=== PATIENT | female | born 1975 | race Hispanic/Latino ===

== ENCOUNTER 2023-04-18 19:49 | Inpatient (IN) | payer MEDICAID, OTHER ==
[~2023-04-18] VITALS: Ht 149.9 cm; Wt 70.3 kg
[2023-04-18] MEDS ORDERED: LIDOCAINE HCL 2% VISCOUS 15 ML UDCUP PO ONE (23:00)
[2023-04-18] MEDS ORDERED: ONDANSETRON 4MG TABLET PO ONE (23:00)
[2023-04-18 23:04] LABS: BASOPHILS # (AUTO) 0.02 K/uL (0.00-0.20); BASOPHILS % (AUTO) 0.3 % (0.0-5.0); EOSINOPHILS # (AUTO) 0.15 K/uL (0.00-0.70); EOSINOPHILS % (AUTO) 2.4 % (0.0-8.0); HEMATOCRIT 26.9 % (36-48); IMMATURE GRANULOCYTE ABSOLUTE 0.04 K/uL (0-1); LYMPHOCYTES % (AUTO) 15.5 % (21.0-51.0); MEAN CORPUSCULAR HEMOGLOBIN 26.3 pg (27.0-33.0); MEAN CORPUSCULAR HGB CONC 31.2 g/dL (32.0-36.0); MEAN CORPUSCULAR VOLUME 84.3 fL (79-99); MONOCYTES # (AUTO) 0.4 K/uL (0.1-1.0); MONOCYTES % (AUTO) 6.3 % (3.0-13.0); NEUTROPHILS # (AUTO) 4.8 K/uL (1.8-7.7); NEUTROPHILS % (AUTO) 74.9 % (40.0-77.0); PLATELET COUNT (AUTO) 333 K/uL (130-400); RED BLOOD CELL COUNT(AUTO) 3.19 MIL/uL (4.00-5.50); WHITE BLOOD COUNT (AUTO) 6.4 K/uL (4.8-10.8)
[2023-04-18 23:19] LABS: CREATININE 1.7 mg/dL (0.5-1.5); POTASSIUM 4.4 mmol/L (3.5-5.1)
[2023-04-18 23:25] LABS: ADD UA MICROSCOPIC YES; APPEARANCE,URINE CLOUDY (CLEAR); BILIRUBIN,URINE NEGATIVE (NEGATIVE); COLOR,URINE LIGHT-YELLOW (YELLOW); GLUCOSE, URINE (UA) 300 mg/dL (NEGATIVE); KETONES,URINE NEGATIVE (NEGATIVE); LEUKOCYTE ESTERASE ,URINE 250 Leu/uL (NEGATIVE); NITRATE,URINE NEGATIVE (NEGATIVE); OCCULT BLOOD,URINE SMALL (NEGATIVE); PH,URINE 6.5 (5.0-8.0); PROTEIN,URINE 600 mg/dL (NEGATIVE); UROBILINOGEN,URINE 0.2 mg/dL (0.2-1.0)
[2023-04-18 23:26] LABS: ALBUMIN 2.2 g/dL (3.5-5.0); BILIRUBIN,TOTAL 0.1 mg/dL (0.2-1.0); TOTAL PROTEIN, SERUM 7.3 g/dL (6.0-8.3)
[2023-04-18 23:28] LABS: HCG,QUALITATIVE URINE NEGATIVE (NEGATIVE)
[2023-04-18] MEDS ORDERED: MAG/ALUM/SIMETH 30 ML UDCUP PO ONE (23:30)
[2023-04-18 23:31] LABS: BACTERIA,URINE RARE /HPF (None Seen); MUCUS,URINE RARE LPF (None Seen); SQUAMOUS EPITHELIAL CELL,UR FEW /HPF (0-2); WBC CLUMP RARE /HPF (0-1); WBC,URINE TNTC /HPF (0-1)
[2023-04-19] MEDS ORDERED: CEFTRIAXONE 1G VIAL ONE (00:52)
[2023-04-19] MEDS ORDERED: 0.9%NACL 1000ML 1,000 ML IV ONE ×2 (00:52→01:00)
[2023-04-19] MEDS ORDERED: CEFTRIAXONE 1G VIAL IVPB ONE (01:00)
[2023-04-19] MEDS ORDERED: MORPHINE 2 MG SYG IVP ONE ×2 (01:30→06:00)
[2023-04-19] MEDS ORDERED: INSU100V12 SQ ×2 (02:25)
[2023-04-19] MEDS ORDERED: LISI5TAB21 PO (02:25)
[2023-04-19] MEDS ORDERED: ONDANSETRON 4MG INJ IV PRN (03:00)
[2023-04-19] MEDS ORDERED: KETOROLAC 15MG/ML VIAL (15MG/ML) IV PRN (03:00)
[2023-04-19] MEDS: CEFTRIAXONE 1G VIAL IVPB SCH (03:00)
[2023-04-19] MEDS: 0.9%NACL 1000ML 1,000 ML IV SCH ×4 (03:18→23:00)
[2023-04-19] MEDS ORDERED: DEXTROSE 50%-WATER 50 ML DISP.SYRIN IV PRN (03:30)
[2023-04-19] MEDS ORDERED: GLUCAGON 1MG KIT 1 MG ML IM PRN (03:30)
[2023-04-19 05:29] LABS: HEMATOCRIT 25.2 % (36-48); MEAN CORPUSCULAR HEMOGLOBIN 26.3 pg (27.0-33.0); MEAN CORPUSCULAR VOLUME 84.8 fL (79-99); PLATELET COUNT (AUTO) 304 K/uL (130-400); RED BLOOD CELL COUNT(AUTO) 2.97 MIL/uL (4.00-5.50); RED CELL DISTRIBUTION WIDTH 13.2 % (11.0-15.5); WHITE BLOOD COUNT (AUTO) 5.5 K/uL (4.8-10.8)
[2023-04-19 06:42] LABS: ALANINE AMINOTRANSFERASE 11 U/L (12-78); AMYLASE 505 U/L (25-115); ASPARTATE AMINOTRANSFERASE 17 U/L (10-37); CARBON DIOXIDE 25 mmol/L (21-32); CHLORIDE 109 mmol/L (101-111); CHOLESTEROL 197 mg/dL (<200); CREATININE 1.4 mg/dL (0.5-1.5); GLOMERULAR FILTR. RATE CALC 46 mL/min (>90); GLUCOSE,RANDOM 74 mg/dL (70-105); HDL CHOLESTEROL 64 mg/dL (35-85); LDL DIRECT 93 mg/dL (0-99); POTASSIUM 4.1 mmol/L (3.5-5.1); SODIUM SERUM 142 mmol/L (136-145); TOTAL PROTEIN, SERUM 6.8 g/dL (6.0-8.3); TRIGLYCERIDES 178 mg/dL (30-200); UREA NITROGEN, BLOOD 28 mg/dL (7-18)
[2023-04-19 06:44] LABS: % IRON SATURATION 14.5 % (22-44)
[2023-04-19] MEDS: INSULIN HUMULIN R 100 UNIT/ML 3ML SQ SCH ×4 (07:14→20:27)
[2023-04-19 07:19] LABS: BILIRUBIN,TOTAL < 0.1 mg/dL (0.2-1.0)
[2023-04-19 09:09] LABS: BASOPHILS # (AUTO) 0.03 K/uL (0.00-0.20); BASOPHILS % (AUTO) 0.4 % (0.0-5.0); EOSINOPHILS # (AUTO) 0.12 K/uL (0.00-0.70); EOSINOPHILS % (AUTO) 1.7 % (0.0-8.0); HEMATOCRIT 24.6 % (36-48); IMMATURE GRANULOCYTE ABSOLUTE 0.03 K/uL (0-1); LYMPHOCYTES % (AUTO) 13.8 % (21.0-51.0); MEAN CORPUSCULAR HEMOGLOBIN 26.5 pg (27.0-33.0); MEAN CORPUSCULAR HGB CONC 31.3 g/dL (32.0-36.0); MEAN CORPUSCULAR VOLUME 84.5 fL (79-99); MONOCYTES # (AUTO) 0.6 K/uL (0.1-1.0); MONOCYTES % (AUTO) 8.3 % (3.0-13.0); NEUTROPHILS # (AUTO) 5.5 K/uL (1.8-7.7); NEUTROPHILS % (AUTO) 75.4 % (40.0-77.0); PLATELET COUNT (AUTO) 302 K/uL (130-400); RED BLOOD CELL COUNT(AUTO) 2.91 MIL/uL (4.00-5.50); RED CELL DISTRIBUTION WIDTH 13.1 % (11.0-15.5); WHITE BLOOD COUNT (AUTO) 7.3 K/uL (4.8-10.8)
[2023-04-19 09:26] LABS: ALBUMIN 1.9 g/dL (3.5-5.0); BILIRUBIN,TOTAL 0.1 mg/dL (0.2-1.0); CREATININE 1.5 mg/dL (0.5-1.5); POTASSIUM 4.3 mmol/L (3.5-5.1); TOTAL PROTEIN, SERUM 6.3 g/dL (6.0-8.3)
[2023-04-19 12:00] VITALS: BP 158/84; PULSE 96; RESP 18
[2023-04-19 16:00] VITALS: BP 155/71; PULSE 95; RESP 16
[2023-04-19 20:00] VITALS: BP 134/77; PULSE 102; RESP 20; O2SAT 99
[2023-04-20] VITALS (8 sets, daily range): BP systolic 140–179; BP diastolic 71–96; PULSE 87–96; RESP 16–20; O2SAT 95–100
[2023-04-20] MEDS: CEFTRIAXONE 1G VIAL IVPB SCH (02:06)
[2023-04-20 03:42] LABS: BASOPHILS # (AUTO) 0.02 K/uL (0.00-0.20); BASOPHILS % (AUTO) 0.5 % (0.0-5.0); EOSINOPHILS # (AUTO) 0.13 K/uL (0.00-0.70); EOSINOPHILS % (AUTO) 3.4 % (0.0-8.0); IMMATURE GRANULOCYTE ABSOLUTE 0.01 K/uL (0-1); LYMPHOCYTES % (AUTO) 25.1 % (21.0-51.0); MEAN CORPUSCULAR HEMOGLOBIN 26.6 pg (27.0-33.0); MEAN CORPUSCULAR HGB CONC 30.8 g/dL (32.0-36.0); MEAN CORPUSCULAR VOLUME 86.2 fL (79-99); MONOCYTES # (AUTO) 0.3 K/uL (0.1-1.0); MONOCYTES % (AUTO) 8.7 % (3.0-13.0); NEUTROPHILS # (AUTO) 2.3 K/uL (1.8-7.7); PLATELET COUNT (AUTO) 305 K/uL (130-400); RED CELL DISTRIBUTION WIDTH 13.2 % (11.0-15.5); WHITE BLOOD COUNT (AUTO) 3.8 K/uL (4.8-10.8)
[2023-04-20 04:00] LABS: ALBUMIN 1.7 g/dL (3.5-5.0); BILIRUBIN,TOTAL 0.1 mg/dL (0.2-1.0); CREATININE 1.4 mg/dL (0.5-1.5); POTASSIUM 4.2 mmol/L (3.5-5.1)
[2023-04-20] MEDS: INSULIN HUMULIN R 100 UNIT/ML 3ML SQ SCH ×4 (05:37→21:00)
[2023-04-20] MEDS: 0.9%NACL 1000ML 1,000 ML IV SCH ×3 (05:45→18:18)
[2023-04-20 06:56] LABS: AMYLASE 309 U/L (25-115)
[2023-04-20] MEDS ORDERED: LABETALOL 20MG VIAL IV PRN (07:00)
[2023-04-20] MEDS ORDERED: CEFTRIAXONE 1G VIAL IVPB ONE (09:00)
[2023-04-20] MEDS: LISINOPRIL 10 MG TABLET PO SCH (09:00)
[2023-04-20] MEDS: FERROUS SULFATE 325 MG TABLET.DR PO SCH (09:00)
[2023-04-21] VITALS (8 sets, daily range): BP systolic 156–187; BP diastolic 72–89; PULSE 60–95; RESP 18–19; O2SAT 99
[2023-04-21 04:06] LABS: BASOPHILS # (AUTO) 0.04 K/uL (0.00-0.20); BASOPHILS % (AUTO) 1.4 % (0.0-5.0); EOSINOPHILS # (AUTO) 0.13 K/uL (0.00-0.70); EOSINOPHILS % (AUTO) 4.4 % (0.0-8.0); HEMATOCRIT 24.6 % (36-48); IMMATURE GRANULOCYTE ABSOLUTE 0.01 K/uL (0-1); LYMPHOCYTES # (AUTO) 1.1 K/uL (1.0-4.8); LYMPHOCYTES % (AUTO) 36.1 % (21.0-51.0); MEAN CORPUSCULAR HEMOGLOBIN 26.4 pg (27.0-33.0); MEAN CORPUSCULAR HGB CONC 30.5 g/dL (32.0-36.0); MEAN CORPUSCULAR VOLUME 86.6 fL (79-99); MONOCYTES # (AUTO) 0.4 K/uL (0.1-1.0); MONOCYTES % (AUTO) 13.2 % (3.0-13.0); NEUTROPHILS # (AUTO) 1.3 K/uL (1.8-7.7); NEUTROPHILS % (AUTO) 44.6 % (40.0-77.0); PLATELET COUNT (AUTO) 284 K/uL (130-400); RED BLOOD CELL COUNT(AUTO) 2.84 MIL/uL (4.00-5.50)
[2023-04-21 04:25] LABS: BAND NEUTROPHILS % (MANUAL) 1 % (0-2); BASOPHILS % (MANUAL) 2 % (0-2); EOSINOPHILS % (MANUAL) 4 % (1-6); LYMPHOCYTES % (MANUAL) 26 % (22-44); MAN.DIFF COMMENT-IMPRESSION MANUAL DIFFERENTIAL; MONOCYTES % (MANUAL) 11 % (2-9); PLATELET MORPHOLOGY COMMENT ADEQUATE; SEGMENTED NEUTROPHILS % 56 % (40-70); TOTAL CELLS COUNTED 100
[2023-04-21 04:29] LABS: ALBUMIN 1.7 g/dL (3.5-5.0); BILIRUBIN,TOTAL 0.2 mg/dL (0.2-1.0); CREATININE 1.4 mg/dL (0.5-1.5); TOTAL PROTEIN, SERUM 5.8 g/dL (6.0-8.3)
[2023-04-21] MEDS: INSULIN HUMULIN R 100 UNIT/ML 3ML SQ SCH (07:30)
[2023-04-21] MEDS: LISINOPRIL 10 MG TABLET PO SCH (09:31)
[2023-04-21] MEDS: FERROUS SULFATE 325 MG TABLET.DR PO SCH (09:32)
[2023-04-22 04:27] VITALS: BP 150/69; PULSE 90; RESP 18
[2023-04-22 05:07] LABS: CREATININE 1.3 mg/dL (0.5-1.5); POTASSIUM 4.2 mmol/L (3.5-5.1)
[2023-04-22 08:00] VITALS: BP 170/78; PULSE 84; RESP 20; O2SAT 99
[2023-04-22] MEDS: FERROUS SULFATE 325 MG TABLET.DR PO SCH (09:21)
[2023-04-22] MEDS: LISINOPRIL 10 MG TABLET PO SCH (09:21)
[2023-04-22 12:00] VITALS: BP 144/82; PULSE 95; RESP 18
== END 2023-04-22 16:00 | disposition home or self-care (01) | DRG 439 ==
LOC: EDH 19:49 → EDHIP 19:50 → 4AH 04-19 11:40
PROVIDERS: ADMIT Hospitalist; ATTEND Hospitalist
DX: K85.90 Acute pancreatitis without necrosis or infection, unspecified (principal); N39.0 Urinary tract infection, site not specified; I12.9 Hypertensive chronic kidney disease with stage 1 through stage 4 chronic kidney disease, or unspecified chronic kidney disease; E11.22 Type 2 diabetes mellitus with diabetic chronic kidney disease; N18.9 Chronic kidney disease, unspecified; E11.65 Type 2 diabetes mellitus with hyperglycemia; D64.9 Anemia, unspecified; E78.5 Hyperlipidemia, unspecified; B96.20 Unspecified Escherichia coli [E. coli] as the cause of diseases classified elsewhere
CPT/HCPCS: 36415; 71045; 74176; 76705; 80048; 80053; 80061; 81001; 81025; 82150; 82948; 83036; 83540; 83550; 83690; 84484; 85025; 85027; 87077; 87088; 87186; 93005; G0378; J0696; J1885; J2270; J2405; J7030; Q0162; A4600

== ENCOUNTER 2025-01-14 23:47 | Inpatient (IN) | payer SELFPAY ==
[~2025-01-14] VITALS: Ht 149.9 cm; Wt 74.4 kg
[~2025-01-14 23:47] MED LIST: INSU100V12 SQ; LISI5TAB21 PO
[2025-01-15] VITALS (7 sets, daily range): BP systolic 131–204; BP diastolic 60–107; PULSE 100–116; RESP 20–21; TEMP 97.6–99; O2SAT 95
[2025-01-15 01:02] LABS: CARBON DIOXIDE 29 mmol/L (21-32); CHLORIDE 105 mmol/L (101-111); CREATININE 3.2 mg/dL (0.5-1.0); GLOMERULAR FILTR. RATE CALC 17 mL/min (>90); GLUCOSE,RANDOM 211 mg/dL (70-105); POTASSIUM 4.8 mmol/L (3.5-5.1); SODIUM SERUM 143 mmol/L (136-145); UREA NITROGEN, BLOOD 34 mg/dL (7-18)
[2025-01-15 01:09] LABS: ALANINE AMINOTRANSFERASE 16 U/L (12-78); ALBUMIN 1.3 g/dL (3.5-5.0); ASPARTATE AMINOTRANSFERASE 22 U/L (10-37); BASOPHILS # (AUTO) 0.03 K/uL (0.00-0.20); BASOPHILS % (AUTO) 0.4 % (0.0-5.0); BILIRUBIN,DIRECT < 0.1 mg/dL (0.0-0.3); BILIRUBIN,TOTAL 0.1 mg/dL (0.2-1.0); CREATINE KINASE, TOTAL 379 U/L (21-232); EOSINOPHILS # (AUTO) 0.25 K/uL (0.00-0.70); EOSINOPHILS % (AUTO) 3.2 % (0.0-8.0); HEMATOCRIT 21.5 % (36-48); IMMATURE GRANULOCYTE ABSOLUTE 0.07 K/uL (0-1); LYMPHOCYTES # (AUTO) 1.2 K/uL (1.0-4.8); LYMPHOCYTES % (AUTO) 15.4 % (21.0-51.0); MEAN CORPUSCULAR HGB CONC 31.6 g/dL (32.0-36.0); MEAN CORPUSCULAR VOLUME 85.3 fL (79-99); MONOCYTES # (AUTO) 0.6 K/uL (0.1-1.0); MONOCYTES % (AUTO) 7.7 % (3.0-13.0); NEUTROPHILS # (AUTO) 5.7 K/uL (1.8-7.7); NEUTROPHILS % (AUTO) 72.4 % (40.0-77.0); PLATELET COUNT (AUTO) 432 K/uL (130-400); RED BLOOD CELL COUNT(AUTO) 2.52 MIL/uL (4.00-5.50); RED CELL DISTRIBUTION WIDTH 14.2 % (11.0-15.5); TOTAL PROTEIN, SERUM 5.7 g/dL (6.0-8.3); WHITE BLOOD COUNT (AUTO) 7.8 K/uL (4.8-10.8)
--- NOTE | 2025-01-15 01:19 | NUR ---
PT CARE ASSUMED AT THIS TIME
[2025-01-15 01:41] LABS: B-TYPE NATRIURETIC PEPTIDE 2070 pg/mL (0-100)
[2025-01-15 01:52] LABS: RAPID GROUP A STREP negative (NEGATIVE)
--- NOTE | 2025-01-15 01:53 | ERN ---
ED Note History of Present Illness Stated Complaint: C/O WEAKNESS WITH SWELLING TO LOWER EXTREMITIES Chief Complaint: Lower Extremity Pain/Injury Time Seen by MD: 23:51 Time Seen by Midlevel: 23:51 Dictation: The patient is a 49-year-old female with a history of hyperlipidemia, chronic kidney disease, diabetes on insulin and metformin who presents to the emergency department with complaints of four days of lower extremity swelling, fatigue, shortness of breath with the exertion. Patient also reports upper respiratory symptoms of nasal congestion, productive cough, sore throat. Patient denies any fevers. Reports occasional chest pain with exertion. Allergies: Coded Allergies: No Known Allergies (Unverified Allergy, Unknown, 04/18/23) Home Meds Reported Medications Insulin Detemir (Levemir) 100 Unit/1 Ml Vial, 25 UNIT SQ PM, VIAL 04/19/23 Insulin Detemir (Levemir) 100 Unit/1 Ml Vial, 35 UNIT SQ DAILY, VIAL 04/19/23 Lisinopril (Lisinopril) 5 Mg Tablet, 5 MG PO DAILY, TAB 04/19/23 Past Medical History Past Medical History: Diabetes-Type II Surgical History: RN Note Reviewed/Agreed w/PFSH: Yes Review of System Dictation Constitutional: Negative for fever,chills, and weight loss Eyes: Negative for injury, pain,redness, and discharge ENT: Negative for injury,pain or swelling Cardiovascular: Negative for palpitations positive for chest pain, edema Respiratory: Negative for wheezing, positive for shortness of breath, cough Abdomen/GI: Negative for abdominal pain, nausea, vomiting, diarrhea, and constipation Back: Negative for injury and pain : Negative for injury, bleeding and discharge MS/Extremity: Negative for injury and deformity Skin: Negative for rash, and discoloration Neuro: Negative for headache, numbness, tingling, and seizure positive for weakness Psych: Negative for suicide ideation, homicidal ideation, and hallucinations Initial Vital Sign VS Vital Signs Date Time Temp Pulse Resp B/P (MAP) Pulse Ox O2 Delivery O2 Flow Rate FiO2 01/14/25 23:48 99.1 110 20 195/104 98 Room Air Physical Exam Dictation Vital Signs reviewed General Appearance: Alert, oriented x 3, mildly distress, well developed, nourished. Head and Face: non-traumatic. Eyes: PERRL, pink conjunctivas, eyelid no trauma, anterior chamber with arcus senilis. Ears: Pinnas intact and no signs of trauma or erythema ear canals clear and no discharge TM no erythema Nose: No discharge, no bleeding. Oropharynx: Mouth normal, tongue pink. pharynx clear,no erythema, tonsils no exudates, no abscesses noted, mucous membrane moist Neck: Supple, non-tender, no thyromegaly, no masses, no JVD, no bruits Breast:Deferred Chest:No tenderness, no crepitus, no paradoxical movement, no retractions Lungs:Clear, well-ventilated, symmetric, no rales, no wheezing, no rhonchi, no stridor,diminished breath sounds bilaterally Heart: Regular rate, regular rhythm, no murmur, no gallops Vascular: left lower pitting edema 3+, right lower pitting edema 2+ Abdomen: Soft, positive bowel sounds, nondistended, no guarding, nontender, no rebound, no masses no hepatomegaly, no splenomegaly, no Jhaveri's sign, no hernias. Rectal: Deferred Genital: Deferred Neurological: Normal speech, motor function intact, sensory function intact Musculoskeletal: Neck nontender, full range of motion, back nontender, full range of motion, Extremities: nontender, full range of motion Skin: Color pale, dry, no turgor, no rash, no lacerations, no abrasions, no contusions. Lymphatic: Deferred Results (Laboratory/Radiology) Laboratory/Radiology Laboratory Tests Test 01/15/25 00:47 01/15/25 01:29 01/15/25 01:32 White Blood Count 7.8 K/uL (4.8-10.8) Red Blood Count 2.52 MIL/uL (4.00-5.50) L Hemoglobin 6.8 g/dL (12.0-16.0) *L Hematocrit 21.5 % (36-48) L Mean Corpuscular Volume 85.3 fL (79-99) Mean Corpuscular Hemoglobin 27.0 pg (27.0-33.0) Mean Corpuscular Hemoglobin Concent 31.6 g/dL (32.0-36.0) L Red Cell Distribution Width 14.2 % (11.0-15.5) Platelet Count 432 K/uL (130-400) H Mean Platelet Volume 10.3 fL (7.5-10.5) Immature Granulocyte % (Auto) 0.9 % (0-1) Neutrophils (%) (Auto) 72.4 % (40.0-77.0) Lymphocytes (%) (Auto) 15.4 % (21.0-51.0) L Monocytes (%) (Auto) 7.7 % (3.0-13.0) Eosinophils (%) (Auto) 3.2 % (0.0-8.0) Basophils (%) (Auto) 0.4 % (0.0-5.0) Neutrophils # (Auto) 5.7 K/uL (1.8-7.7) Lymphocytes # (Auto) 1.2 K/uL (1.0-4.8) Monocytes # (Auto) 0.6 K/uL (0.1-1.0) Eosinophils # (Auto) 0.25 K/uL (0.00-0.70) Basophils # (Auto) 0.03 K/uL (0.00-0.20) Absolute Immature Granulocyte (auto 0.07 K/uL (0-1) Nucleated Red Blood Cells 0.0 % (0.0-0.19) Reticulocyte Count (auto) 2.44488 % (0.42-2.23) H Immature Reticulocyte Fraction 36.20 % (0.18-0.48) H Prothrombin Time 10.4 SEC (9.6-11.6) Prothromb Time International Ratio 0.98 (0.85-1.15) Activated Partial Thromboplast Time 32.6 SEC (26.3-35.5) Sodium Level 143 mmol/L (136-145) Potassium Level 4.8 mmol/L (3.5-5.1) Chloride Level 105 mmol/L (101-111) Carbon Dioxide Level 29 mmol/L (21-32) Blood Urea Nitrogen 34 mg/dL (7-18) H Creatinine 3.2 mg/dL (0.5-1.0) H Glomerular Filtration Rate Calc 17 mL/min (>90) Random Glucose 211 mg/dL (70-105) H Total Calcium 7.6 mg/dL (8.5-10.1) L Total Bilirubin 0.1 mg/dL (0.2-1.0) L Direct Bilirubin < 0.1 mg/dL (0.0-0.3) Aspartate Amino Transf (AST/SGOT) 22 U/L (10-37) Alanine Aminotransferase (ALT/SGPT) 16 U/L (12-78) Alkaline Phosphatase 97 U/L (50-136) Total Creatine Kinase 379 U/L (21-232) H Troponin I High Sensitivity 137.8 ng/L (4-50) *H B-Type Natriuretic Peptide 2070 pg/mL (0-100) H Total Protein 5.7 g/dL (6.0-8.3) L Albumin 1.3 g/dL (3.5-5.0) L Lipase 81 U/L (16-77) H Influenza Type A Antigen Negative For Type A Influenza Type B Antigen Negative For Type B SARS-CoV-2 Antigen (Rapid) PRESUMPTIVE NEGATIVE Group A Streptococcus Rapid negative (NEGATIVE) Urine Color COLORLESS (YELLOW) Urine Appearance CLEAR (CLEAR) Urine pH 8.5 (5.0-8.0) H Urine Specific [place] 1.010 (1.001-1.031) Urine Protein 600 mg/dL (NEGATIVE) H Urine Glucose (UA) 500 mg/dL (NEGATIVE) H Urine Ketones 5 mg/dL (NEGATIVE) H Urine Occult Blood SMALL (NEGATIVE) H Urine Nitrate NEGATIVE (NEGATIVE) Urine Bilirubin NEGATIVE mg/dL (NEGATIVE) Urine Urobilinogen 0.2 mg/dL (0.2-1.0) Urine Leukocyte Esterase NEGATIVE Ramiro/uL Urine RBC 0-1 /HPF (0-1) Urine WBC 11-25 /HPF (0-1) H Urine Squamous Epithelial Cells RARE /HPF (0-2) Urine Bacteria RARE /HPF (None Seen) Urine Random Creatinine 27.05 mg/dL (30-135) L Urine Random Sodium 105 mmol/l (40-220) Labs Reviewed?: Yes EKG: (+) rhythm (Sinus tachycardia) EKG Comment: Date:01/15/2025 Time:0126 Ventricular rate:106 MI interval:146 QRS duration:78 QT/QTc:354 EKG interpretation: Sinus tachycardia Reviewed by ED Attending no STEMI ED Course ED Course Orders Procedure Category Date Status Time Cbc With Differential LAB 01/15/25 Complete 00:07 B-Type Natriuretic LAB 01/15/25 Complete Peptide 00:07 Chest 1vw RAD 01/15/25 Taken 00:07 12 Lead Ekg Tracing- EKG 01/15/25 Logged Technical 00:07 Urinalysis Profile LAB 01/15/25 Complete 00:07 Basic Metabolic Panel LAB 01/15/25 Complete 00:07 Lipase LAB 01/15/25 Complete 00:07 Hepatic Function Panel LAB 01/15/25 Complete 00:07 Covid19 (Sars Antigen LAB 01/15/25 Complete Rapid) 00:07 Influenza Type A & B, LAB 01/15/25 Complete Rapid 00:07 Rapid (Group A Strep) LAB 01/15/25 Complete 00:07 Cardiac Panel LAB 01/15/25 Complete 00:47 Type And Screen BBK 01/15/25 In Process 01:41 Troponin I High LAB 01/15/25 In Process Sensitivity 01:41 Pt And Ptt LAB 01/15/25 Complete 01:41 Culture Urine DEBRA 01/15/25 In Process 01:56 Rbc-No Active Bleeding BBK 01/15/25 In Process 02:14 Lactate Dehydrogenase LAB 01/15/25 In Process 02:23 Reticulocyte Count LAB 01/15/25 In Process Automated 02:23 Pathology Smear Review LAB 01/15/25 In Process 02:23 Iron Serum LAB 01/15/25 In Process 02:23 Iron Panel With %Sat LAB 01/15/25 In Process 02:23 Urine Sodium,Random LAB 01/15/25 Complete 02:25 Urine Creatinine LAB 01/15/25 Complete Random 02:25 Osmolality Urine LAB 01/15/25 In Process 02:25 Activity: Ad Madalyn CPOE 01/15/25 Transmitted 02:25 Activity: Bed Rest CPOE 01/15/25 Transmitted 02:25 Apply Knee High Teds CPOE 01/15/25 Transmitted 02:25 Apply Scds CPOE 01/15/25 Transmitted 02:25 Condition: CPOE 01/15/25 Transmitted 02:25 Daily Weights CPOE 01/15/25 Transmitted 02:25 I&O Q Shift CPOE 01/15/25 Transmitted 02:25 Nurse To Enter Home CPOE 01/15/25 Transmitted Medication 02:25 Oxygen By Nc/Pulse Ox CPOE 01/15/25 Transmitted 02:25 Telemetry Monitoring CPOE 01/15/25 Transmitted 02:25 Vital Signs(Adult CPOE 01/15/25 Transmitted Hospitalist) 02:25 Troponin I High LAB 01/15/25 Logged Sensitivity 06:00 Troponin I High LAB 01/15/25 Logged Sensitivity 12:00 Troponin I High LAB 01/15/25 Logged Sensitivity 18:00 Acetaminophen 325 Tab PHA 01/15/25 In Process (Tylenol 325mg Tab 02:30 Aspirin 81mg Chew Tab PHA 01/15/25 Complete (Aspirin 81mg Chew 02:30 Aspirin 81mg Ec Tab PHA 01/15/25 In Process (Aspirin 81mg Ec Tab 09:00 Pantoprazole 40mg Tab PHA 01/15/25 In Process (Protonix 40mg Tab 09:00 Ondansetron 4mg Inj PHA 01/15/25 In Process (Zofran 4mg Inj) 02:30 Nitroglycerin 1gm PHA 01/15/25 In Process Oint (Nitroglycerin 1g 02:30 Hydralazine 20mg Inj PHA 01/15/25 In Process (Apresoline 20mg In 02:30 0.9%Nacl 1000ml (Ns PHA 01/15/25 In Process 1000ml) 02:30 Initiate DEB 01/15/25 In Process Hyperglycemia Protoco 02:25 Insulin Regular, PHA 01/15/25 In Process Human 3ml (Humulin R 07:30 Hemoglobin A1c LAB 01/15/25 In Process 04:00 Echo 2-D Complete ECHO 01/15/25 Logged 02:25 Admit Orders ADM 01/15/25 Transmitted 02:25 Basic Metabolic Panel LAB 01/16/25 Verified 04:00 Cbc With Differential LAB 01/16/25 Verified 04:00 Magnesium LAB 01/16/25 Verified 04:00 Phosphorus LAB 01/16/25 Verified 04:00 Morphine 2mg Syg PHA 01/15/25 In Process (Morphine 2mg Syg) 03:00 Occult Blood Stool LAB 01/15/25 Logged Single Only 02:30 Nephrology Consult CONPHYSVC 01/15/25 Transmitted 08:00 Current Medications Medications (Trade) Dose Ordered Sig/Efraín Route PRN Reason Start Time Stop Time Status Last Admin Dose Admin Acetaminophen (TYLenol 325MG TAB) 650 mg Q6H PRN PO TEMPERATURE GREATER THAN 101.5 01/15/25 02:30 02/14/25 02:29 Aspirin (Aspirin 81mg Chew Tab) 162 mg ONCE ONCE PO 01/15/25 02:30 01/15/25 02:31 DC Aspirin (Aspirin 81mg Ec Tab) 81 mg DAILY PO 01/15/25 09:00 02/14/25 08:59 Hydralazine HCl (APRESOLine 20MG INJ) 10 mg Q6H PRN IV For:SBP above 160;DBP above 90 01/15/25 02:30 02/14/25 02:29 Insulin Human Regular (humuLIN R 100 UNIT/ML 3ML) INSULIN SLIDING SCAL... ACHS SQ 01/15/25 07:30 02/14/25 07:29 Morphine Sulfate (morPHINE 2MG SYG) 2 mg Q4H PRN IVP SEVERE PAIN (7-10) 01/15/25 03:00 01/22/25 02:59 Nitroglycerin (Nitroglycerin 1gm Oint) 0.5 inch Q8H TD 01/15/25 02:30 02/14/25 02:29 Ondansetron HCl (zoFRAN 4MG INJ) 4 mg Q6H PRN IV NAUSEA/VOMITING 01/15/25 02:30 02/14/25 02:29 Pantoprazole Sodium (PROTonix 40MG TAB) 40 mg DAILY PO 01/15/25 09:00 02/14/25 08:59 Sodium Chloride 1,000 ml @ 75 mls/hr [id number] IV 01/15/25 02:30 02/14/25 02:29 Vital Signs Date Time Temp Pulse Resp B/P (MAP) Pulse Ox O2 Delivery O2 Flow Rate FiO2 01/14/25 23:48 99.1 110 20 195/104 98 Room Air HEART Score Response (Comments) Value History: Low suspicion (0) 0 EKG: Normal 0 Age: 45-65yrs (+1) 1 Risk Factors: 1-2 risk factors (+1) 1 Initial Troponin: 1-3x Normal Limit (+1) 1 Total 3 Medical Decision Making MDM MDM: The patient is a 49-year-old female with a history of hyperlipidemia, chronic kidney disease, diabetes on insulin and metformin who presents to the emergency department with complaints of four days of lower extremity swelling, fatigue, shortness of breath with the exertion. Patient also reports upper respiratory symptoms of nasal congestion, productive cough, sore throat. Patient denies any fevers. Reports occasional chest pain with exertion. CBC showed no leukocytosis, severe anemia, chemistry showed creatinine of 3.2, GFR of 17, BNP of 2070, troponin of 137.5, slightly elevated lipase, serology negative chest x-ray showed cardiomegaly, patient received a unit of blood and be admitted for further evaluation and treatment. Differential diagnosis: ACS, CHF, renal failure, anemia, electrolyte imbalance Comorbidities: Hyperlipidemia, diabetes, CKD Tests considered and not ordered secondary to shared decision making include: none Previous outside records reviewed: none Risk of complication and/or morbidity or mortality of patient management: The patient meets criteria for admission. Need for emergency major/minor surgery: No There are no social concerns with this patient. I independently interpreted the tests I ordered (labs, urinalysis, etc.). I discussed the case with the hospitalist for admission. Luke AHMADI who accepts admission. I discussed the case with the following specialists: none. Historian: pateint. I independently interpreted imaging studies and EKGs that I ordered (US, CT, XR, EKG, etc.). External chart review: none. Medical management and examination interpretation discussions were had by me with other qualified healthcare professionals as indicated for the patient's care. Critical Care Note Critical Time: other (36) Comment(s) Total critical care time was 36 minutes. Excluding time for procedures. Man agement of critically ill patient with concern for acute decompensation. Management included interpretation of laboratory values and imaging, hemodynamics, time for consultation with consultants and admitting physician. DX & DISP Disposition: Inpatient Decision to Admit Date: January 15, 2025 Decision to Admit Time: 02:42 Departure Impression: Primary Impression: Acute renal failure Additional Impressions: Severe anemia, Elevated brain natriuretic peptide (BNP) level, Elevated troponin, Dyspnea Condition: Stable Referrals: NONE (PCP) I have reviewed the case, and I agree with, Diagnosis and Plan BART ECHAVARRIA January 15, 2025 01:52
[2025-01-15 01:54] LABS: APPEARANCE,URINE CLEAR (CLEAR); BILIRUBIN,URINE NEGATIVE (NEGATIVE); COLOR,URINE COLORLESS (YELLOW); GLUCOSE, URINE (UA) 500 mg/dL (NEGATIVE); KETONES,URINE 5 mg/dL (NEGATIVE); LEUKOCYTE ESTERASE ,URINE NEGATIVE Leu/uL (NEGATIVE); NITRATE,URINE NEGATIVE (NEGATIVE); OCCULT BLOOD,URINE SMALL (NEGATIVE); PH,URINE 8.5 (5.0-8.0); PROTEIN,URINE 600 mg/dL (NEGATIVE); UROBILINOGEN,URINE 0.2 mg/dL (0.2-1.0)
[2025-01-15 01:55] LABS: ADD UA MICROSCOPIC YES
[2025-01-15 01:56] LABS: BACTERIA,URINE RARE /HPF (None Seen); RBC,URINE 0-1 /HPF (0-1); SQUAMOUS EPITHELIAL CELL,UR RARE /HPF (0-2)
[2025-01-15 02:02] LABS: INR 0.98 (0.85-1.15); PROTHROMBIN TIME 10.4 SEC (9.6-11.6)
[2025-01-15 02:03] LABS: PARTIAL THROMBOPLASTIN TIME 32.6 SEC (26.3-35.5)
[2025-01-15 02:03] LABS: COVID19 (SARS ANTIGEN RAPID) PRESUMPTIVE NEGATIVE (NEGATIVE); INFLUENZA TYPE A Negative For Type A (NEGATIVE); INFLUENZA TYPE B Negative For Type B (NEGATIVE)
[2025-01-15] MEDS ORDERED: acetaMINOPHEN 325 MG TAB PO PRN (02:30)
[2025-01-15] MEDS ORDERED: ondanSETRON 4MG INJ IV PRN (02:30)
--- NOTE | 2025-01-15 02:37 | HP ---
History of Present Illness Reason for Visit: Shortness of breaths History of Present Illness Ms. Jesse Meza is a 49-year-old female that was seen and examined today on 01/15/2025. Patient came to the emergency department with a chief complaint of shortness of breath. Onset was four days ago. Location is to lungs. Character is described as, like I can not get enough air. Symptoms are aggravated with physical activity. There was no alleviating factors. Patient reports associated pedal edema. Today in the emergency department hemoglobin 6.8, hematocrit 21.5, creatinine 3.2, BUN 34, GFR 17, glucose 211 mg/dL, troponin 137.8, influenza negative, COVID negative, strep negative, BNP 2070, chest x-ray is pending radiology interpretation. Emergency room physician recommended patient be admitted with a diagnosis of anemia. Past Medical History Patient History: Sudden Unknown MOTHER BROTHER SISTER SISTER SISTER SISTER DAUGHTER DAUGHTER SON SON ADDITIONAL PAST MEDICAL HISTORY: [CKD, hypertension, hyperlipidemia, Diabetes mellitius type2] SOCIAL HISTORY: [Negative for smoking, alcohol use, drug use] SURGICAL HISTORY: [ section x4] Review of Systems General: No Fever, No Chills, No Night Sweats, No Fatigue, No Malaise, No Appetite, No Other HEENT: No Head Aches, No Visual Changes, No Eye Pain, No Ear Pain, No Dysphasia, No Sinus Congestion, No Post Nasal Drip, No Sore Throat, No Other Pulmonary: Dyspnea; No Cough, No Pleuritic Chest Pain, No Other Cardiovascular: No: Chest Pain, Palpitations, Orthopnea, Paroxysmal Noc. Dyspnea, Edema, Lt Headedness, Other Gastrointestinal: No: Nausea, Vomiting, Abdominal Pain, Diarrhea, Constipation, Melena, Hematochezia, Other Genitourinary: No Dysuria, No Frequency, No Incontinence, No Hematuria, No Retention, No Other Musculoskeletal: leg pain; No: other, neck pain, shoulder pain, arm pain, back pain, hand pain, foot pain Skin: No Urticaria, No Rash, No Other Neurological: No: Weakness, Numbness, Incoordination, Change in speech, Confusion, Seizures, Other Allergies: Coded Allergies: No Known Allergies (Unverified Allergy, Unknown, 04/18/23) Scheduled Insulin Detemir (Levemir), 35 UNIT SQ DAILY, (Reported) Insulin Detemir (Levemir), 25 UNIT SQ PM, (Reported) Lisinopril (Lisinopril), 5 MG PO DAILY, (Reported) Exam Vital Signs Vital Signs Date Time Temp Pulse Resp B/P (MAP) Pulse Ox O2 Delivery O2 Flow Rate FiO2 01/14/25 23:48 99.1 110 20 195/104 98 Room Air General Appearance: Alert, Oriented X3, Cooperative, mild distress HEENT: Atraumatic, EOMI, Mucous membr. moist/pink Respiratory: Other (Diminished air entry to bilateral lower lobes) Cardiovascular: Regular rate, Regular rhythm, Normal S1, Normal S2 Abdominal: Normal bowel sounds, Soft, No tenderness Extremities: No clubbing, No cyanosis, Other (Positive pedal edema) Skin: No significant lesion Neuro: Normal gait, Normal speech, Strength at 5/5 X4 ext, Sensation intact, Cranial nerves 3-12 NL Psych/Mental Status: Mental status NL, Mood NL, Thoughts/Content NL Assessment/Plan ASSESSMENT: [ Normocytic anemia, POA Acute kidney injury, POA, today creatinine 3.2, 04/22/2023 creatinine 1.3 Uncontrolled Diabetes mellitius type2, POA Elevated BNP Elevated troponin Hypertension Hyperlipidemia] PLAN: [ Admit patient to medical floor as inpatient status. Place patient on telemetry monitoring. Check iron panel, follow up with the results Check serum ferritin, follow up with the results Check LDH, reticulocyte count, peripheral smear, follow up with the results Monitor labs Transfuse packed red blood cells for hemoglobin less than 7 mg/dL Check stool for occult blood, follow up with the results Consider consulting Gastroenterology if stool sample was positive for occult blood. Start Protonix and Sandostatin is stool sample positive for occult blood. 0.9% NS at 75 mL/HR IV fluid maintenance therapy Calculate FENA Check urine sodium, creatinine, osmolality Avoid nephrotoxic agents when possible Renally dose all medications when possible Consult Nephrology Service for evaluation and further recommendations, Dr. Varun penaloza Monitor patient's labs. Weight patient daily. Monitor intake and output. Check hemoglobin A1c in a.m. Glucometer checks a.c. and HS 1800 ADA diet Humulin R sliding scale Administer aspirin 162 mg by mouth times 1 dose Continue aspirin 81 mg by mouth once daily Nitropaste 0.5 inches anterior chest wall every 8 hours Trend troponin every 6 hours x 3 sets Supplemental oxygen to maintain O2 saturation greater than 92% Consult cardiology if any elevation in troponin or troponin uptrending Check 2D echo in a.m., follow up with the results Consider consulting Cardiology if patient has CHF. Consider resuming home medications once they have been reconciled. For now, Hydralazine 10 mg IV every 4 hours for systolic blood pressure greater than 160 mmHg GI prophylaxis, Protonix DVT prophylaxis, Jorden's and SCDs ADVANCED CARE PLANNING 1. Which of the following were discussed? Hospice Care - Yes / No Therapeutic options - Yes / No Advance Directives - Yes -patient states she does not have any advance directives in place at this time Other discussions - patient wishes to remain a full code at this time 2. Discussed with who? Patient 3. Voluntary nature of this service was explained to the patient? Yes 4. Amount of time spent - ___ 16 minutes ____ 5. Reviewed by Physician? (if this service was performed by NPP) Yes This document was generated in part using voice recognition software, occasional wrong word or sound alike substitutions may have occurred due to the inherent limitations of voice recognition software. Read the chart carefully and recognize using context, where the substitutions have occurred. Although every effort was made to edit the content, contact manager and typing errors may occur ATTESTATION BY PHYSICIAN I have seen and examined the patient. I reviewed the documentation, medical decision making, and treatment plan as noted by the mid-level provider above. I agree with the findings and plan of care. ] [facility] January 15, 2025 02:37
[2025-01-15 02:39] LABS: CREATININE,URINE RANDOM 27.05 mg/dL (30-135)
[2025-01-15] MEDS: ASPIRIN 81MG CHEW TAB PO ONE (02:42)
[2025-01-15] MEDS: NITROGLYCERIN 1GM OINT 1 INCH/1GM TD SCH (02:45)
[2025-01-15] MEDS: 0.9%NACL 1000ML 1,000 ML IV SCH (02:45)
[2025-01-15 02:47] LABS: HEMOGLOBIN A1C 11.3 % (4.0-6.0)
[2025-01-15 03:11] LABS: % IRON SATURATION 16.7 % (22-44)
--- NOTE | 2025-01-15 04:40 | NUR ---
SARITHA BHATTI NOTIFIED ABOUT ELEVATED TROPONIN.
[2025-01-15] MEDS: morPHINE 2 MG SYG IVP PRN (05:42)
[2025-01-15] MEDS: hydrALAZine 20MG/ML VIAL IV PRN (05:54)
--- NOTE | 2025-01-15 06:03 | NUR ---
ATTEMPT TO GIVE REPORT AT THIS TIME. NO ANSWER .
--- NOTE | 2025-01-15 06:45 | NUR ---
HOUSE NOTIFIED ABOUT NO ANSWER ON SECOND FLOOR. INSTRUCTED TO CALL BACK AGAIN. ATTEMPT MADE TO GIVE REPORT AT THIS TIME. NOT SUCESSFUL.
--- NOTE | 2025-01-15 07:10 | NUR ---
REPORT GIVEN TO CAMDEN RN AT THIS TIME
[2025-01-15] MEDS: INSULIN humuLIN R 100 UNIT/ML 3ML SQ SCH (07:30)
--- NOTE | 2025-01-15 07:33 | NUR ---
[facility] DOES NOT HAVE HOME MEDS AT BEDSIDE, PATIENT MADE AWARE TO HAVE FAMILY BRING
--- NOTE | 2025-01-15 08:23 | NUR ---
1UNIT OF PRBC FINISHED, NO REACTION REPORT GIVEN TO TRUMAN ROSS
--- NOTE | 2025-01-15 08:34 | EKG ---
[facility] Test Date: 2025-01-15 Test Time: 01:26:31 Pat Name: YO MENESES Department: [facility]HIP Room: 203 Gender: F [place] Cook: [id number] : 1975 Requested By: BART ECHAVARRIA Order Number: [id number] Reading MD: Brigida Coles Measurements Intervals [place] Rate: 106 P: 79 CA: 146 QRS: 36 QRSD: 78 T: 55 QT: 354 QTc: 471 Interpretive Statements Sinus tachycardia Compared to ECG 04/18/2023 23:09:38 Sinus rhythm no longer present Electronically Signed On 01-16-2025 18:39:11 CDT by Brigida Coles Please click the below link to view image of tracing.
[2025-01-15] MEDS: ASPIRIN 81 MG EC TAB PO SCH (09:00)
[2025-01-15] MEDS: PANTOPrazole 40 MG TAB DR PO SCH (09:00)
--- NOTE | 2025-01-15 09:06 | HMCIMG ---
Exam Type: CHEST 1VW Clinical Information: cough Comparison: None Findings: Small bilateral pleural effusions. The lungs are clear of infiltrates. The heart is enlarged. Bony and soft tissue structures of the chest wall are unremarkable. IMPRESSION: Cardiomegaly. Small bilateral pleural effusions.
[2025-01-15] MEDS: PANTOPrazole 40 MG/VIAL IVP ONE (11:25)
--- NOTE | 2025-01-15 11:34 | PN ---
[facility] PROGRESS NOTE Date of Service: January 15, 2025 Time of Service: 11:29 SUBJECTIVE: Ms. Jesse Meza is a 49-year-old female that was seen and examined today on 01/15/2025. Patient came to the emergency department with a chief complaint of shortness of breath. Onset was four days ago. Location is to lungs. Character is described as, like I can not get enough air. Symptoms are aggravated with physical activity. There was no alleviating factors. Patient reports associated pedal edema. Today in the emergency department hemoglobin 6.8, hematocrit 21.5, creatinine 3.2, BUN 34, GFR 17, glucose 211 mg/dL, troponin 137.8, influenza negative, COVID negative, strep negative, BNP 2070, chest x-ray is pending radiology interpretation. Emergency room physician recommended patient be admitted with a diagnosis of anemia. 01/15: Patient seen and examined this morning at bedside. Chest x-ray positive for bilateral pleural effusions. Patient reports black, tarry stools. Hgb is 6.8 today, Hct 21.5. Gastroenterology was consulted for black, tarry stools. FOBT ordered and pending. Cardiology has been consulted. 2D echo results pending. Aspirin has been held. Protonix IV 40 mg added to medication regimen. Medications will be reconciled once available. REVIEW OF SYSTEMS CONSTITUTIONAL: Denies fevers, chills, or night sweats. No unintentional weight loss reported. NEUROLOGICAL: Denies headache, amaurosis fugax, motor weakness, sensory deficit, vertigo/spinning sensation, gait abnormalities, or tremors. ENT: No hearing loss, otalgia, otorrhea, rhinitis, rhinorrhea, hoarseness, or sore throat. CARDIOVASCULAR: Denies any exertional angina, dyspnea on exertion, orthopnea, paroxysmal nocturnal dyspnea, palpitations, life-threatening arrhythmias, claudication. PULMONARY: Denies any shortness of breath, cough, phlegm/sputum, hemoptysis, pleuritic chest pain. SLEEP: Denies morning headaches, daytime somnolence or napping. Denies difficulty falling asleep, staying asleep, waking from sleep. Denies knowledge of snoring. GASTROINTESTINAL: Denies any type of dysphagia to either liquids or solids. Denies nausea, vomiting, pyrosis, early satiety, abdominal pain, diarrhea, constipation, or changes in stool consistency or caliber. Denies coffee-ground emesis, hematemesis, hematochezia, or melanotic stools. GENITOURINARY: Denies frequency, urgency, nocturia, hematuria or incontinence (Storage/Irritative symptoms.) Low urinary stream, straining to void, urinary intermittency or hesitancy, splitting of the voiding stream, terminal dribbling. ENDOCRINOLOGIC: Denies polyuria, polydipsia, polyphagia or heat/cold intolerances. HEMATOLOGIC: Denies thrombophilia/previous clots, or coagulopathy/bleeding disorders. ONCOLOGIC: Denies personal history of malignancy. DERMATOLOGIC: Denies rashes or pruritus. PSYCHIATRIC: Denies any suicidal or homicidal ideation. Denies hallucinations. PHYSICAL EXAM GENERAL APPEARANCE: The patient is awake, alert, and oriented, in no acute cardiopulmonary distress. NEUROLOGICAL: Cranial nerves II-XII grossly intact. Motor is 5/5 in bilateral upper and lower extremities proximal to distal. No sensory deficits. HEENT: Face is symmetric. Pupils are equal and reactive. Extraocular movements are intact. NECK: Supple. No JVD. No thyromegaly. No submental, submandibular, pre- /postauricular, occipital or supraclavicular lymphadenopathy. CHEST: Normal chest expansion. No Telemetry. LUNGS: Absence of any rales, rhonchi or any wheezing. CARDIOVASCULAR: Regular. S1 and S2 normal. No appreciable rubs, murmurs or gallops. ABDOMEN: Soft, nontender, and nondistended. There is no rebound, voluntary guarding, or rigidity. : Deferred. No Buckner. EXTREMITIES: Non-edematous and not cyanotic. No clubbing. Good capillary refill. SKIN: No skin breakdown. Vital Signs (last 8hr) Date Time Temp Pulse Resp B/P (MAP) Pulse Ox O2 Delivery O2 Flow Rate FiO2 01/15/25 09:20 98.6 115 20 141/85 95 Room Air 01/15/25 08:50 98.4 99 16 185/98 98 Room Air* 0 01/15/25 07:23 98.4 96 16 175/92 97 Room Air* 0 01/15/25 06:00 99 14 160/79 96 Room Air* 0 01/15/25 05:45 100 16 167/89 98 Room Air* 0 01/15/25 04:30 105 16 170/65 98 Room Air* 0 21 LABS: Laboratory: Test 01/15/25 11:09 01/15/25 06:48 01/15/25 01:32 01/15/25 01:29 Range/Units Whole Blood Glucose 231 #H 70-110 MG/DL Troponin I High Sensitivity 137 *H 4-50 ng/L Urine Color COLORLESS YELLOW Urine Appearance CLEAR CLEAR Urine pH 8.5 H 5.0-8.0 Urine Specific [place] 1.010 1.001-1.031 Urine Protein 600 H NEGATIVE mg/dL Urine Glucose (UA) 500 H NEGATIVE mg/dL Urine Ketones 5 H NEGATIVE mg/dL Urine Occult Blood SMALL H NEGATIVE Urine Nitrate NEGATIVE NEGATIVE Urine Bilirubin NEGATIVE NEGATIVE mg/dL Urine Urobilinogen 0.2 0.2-1.0 mg/dL Urine Leukocyte Esterase NEGATIVE NEGATIVE Ramiro/uL Urine RBC 0-1 0-1 /HPF Urine WBC 11-25 H 0-1 /HPF Urine Squamous Epithelial Cells RARE 0-2 /HPF Urine Bacteria RARE None Seen /HPF Urine Random Creatinine 27.05 L 30-135 mg/dL Urine Random Sodium 105 40-220 mmol/l Influenza Type A Antigen Negative For Type A NEGATIVE Influenza Type B Antigen Negative For Type B NEGATIVE SARS-CoV-2 Antigen (Rapid) PRESUMPTIVE NEGATIVE NEGATIVE Group A Streptococcus Rapid negative NEGATIVE Test 01/15/25 00:47 Range/Units White Blood Count 7.8 4.8-10.8 K/uL Red Blood Count 2.52 L 4.00-5.50 MIL/uL Hemoglobin 6.8 *L 12.0-16.0 g/dL Hematocrit 21.5 L 36-48 % Mean Corpuscular Volume 85.3 79-99 fL Mean Corpuscular Hemoglobin 27.0 27.0-33.0 pg Mean Corpuscular Hemoglobin Concent 31.6 L 32.0-36.0 g/dL Red Cell Distribution Width 14.2 11.0-15.5 % Platelet Count 432 H 130-400 K/uL Mean Platelet Volume 10.3 7.5-10.5 fL Immature Granulocyte % (Auto) 0.9 0-1 % Neutrophils (%) (Auto) 72.4 40.0-77.0 % Lymphocytes (%) (Auto) 15.4 L 21.0-51.0 % Monocytes (%) (Auto) 7.7 3.0-13.0 % Eosinophils (%) (Auto) 3.2 0.0-8.0 % Basophils (%) (Auto) 0.4 0.0-5.0 % Neutrophils # (Auto) 5.7 1.8-7.7 K/uL Lymphocytes # (Auto) 1.2 1.0-4.8 K/uL Monocytes # (Auto) 0.6 0.1-1.0 K/uL Eosinophils # (Auto) 0.25 0.00-0.70 K/uL Basophils # (Auto) 0.03 0.00-0.20 K/uL Absolute Immature Granulocyte (auto 0.07 0-1 K/uL Nucleated Red Blood Cells 0.0 0.0-0.19 % Reticulocyte Count (auto) 2.20982 H 0.42-2.23 % Immature Reticulocyte Fraction 36.20 H 0.18-0.48 % Prothrombin Time 10.4 9.6-11.6 SEC Prothromb Time International Ratio 0.98 0.85-1.15 Activated Partial Thromboplast Time 32.6 26.3-35.5 SEC Sodium Level 143 136-145 mmol/L Potassium Level 4.8 3.5-5.1 mmol/L Chloride Level 105 101-111 mmol/L Carbon Dioxide Level 29 21-32 mmol/L Blood Urea Nitrogen 34 H 7-18 mg/dL Creatinine 3.2 H 0.5-1.0 mg/dL Glomerular Filtration Rate Calc 17 >90 mL/min Random Glucose 211 H 70-105 mg/dL Hemoglobin A1c 11.3 H 4.0-6.0 % Estimated Average Glucose (eAG) 278 H 70-126 mg/dL Total Calcium 7.6 L 8.5-10.1 mg/dL Iron Level 33 #L 50-170 mcg/dL Total Iron Binding Capacity 197 L 250-450 mcg/dL Percent Iron Saturation 16.7 L 22-44 % Total Bilirubin 0.1 L 0.2-1.0 mg/dL Direct Bilirubin < 0.1 0.0-0.3 mg/dL Aspartate Amino Transf (AST/SGOT) 22 10-37 U/L Alanine Aminotransferase (ALT/SGPT) 16 12-78 U/L Alkaline Phosphatase 97 50-136 U/L Lactate Dehydrogenase 346 H 81-234 U/L Total Creatine Kinase 379 H 21-232 U/L B-Type Natriuretic Peptide 2070 H 0-100 pg/mL Total Protein 5.7 L 6.0-8.3 g/dL Albumin 1.3 L 3.5-5.0 g/dL Lipase 81 H 16-77 U/L Current Medications Medications (Trade) Dose Ordered Sig/Efraín Route PRN Reason Start Time Stop Time Status Last Admin Dose Admin Acetaminophen (TYLenol 325MG TAB) 650 mg Q6H PRN PO TEMPERATURE GREATER THAN 101.5 01/15/25 02:30 02/14/25 02:29 Aspirin (Aspirin 81mg Ec Tab) 81 mg DAILY PO 01/15/25 09:00 02/14/25 08:59 Hold Hydralazine HCl (APRESOLine 20MG INJ) 10 mg Q6H PRN IV For:SBP above 160;DBP above 90 01/15/25 02:30 02/14/25 02:29 01/15/25 05:54 10 MG Insulin Human Regular (humuLIN R 100 UNIT/ML 3ML) INSULIN SLIDING SCAL... ACHS SQ 01/15/25 07:30 02/14/25 07:29 Morphine Sulfate (morPHINE 2MG SYG) 2 mg Q4H PRN IVP SEVERE PAIN (7-10) 01/15/25 03:00 01/22/25 02:59 01/15/25 05:42 2 MG Nitroglycerin (Nitroglycerin 1gm Oint) 0.5 inch Q8H TD 01/15/25 02:30 02/14/25 02:29 01/15/25 11:26 0.5 INCH Ondansetron HCl (zoFRAN 4MG INJ) 4 mg Q6H PRN IV NAUSEA/VOMITING 01/15/25 02:30 02/14/25 02:29 Pantoprazole Sodium (PROTonix 40MG INJ) 40 mg BID IVP 01/15/25 21:00 02/14/25 20:59 Pantoprazole Sodium (PROTonix 40MG TAB) 40 mg DAILY PO 01/15/25 09:00 01/15/25 09:53 DC Sodium Chloride 1,000 ml @ 75 mls/hr [id number] IV 01/15/25 02:30 01/15/25 09:53 DC 01/15/25 02:45 75 MLS/HR DIAGNOSTICS / RADIOLOGY: [facility] [place] [address] [place], [place] [id number] IMAGING REPORT Signed PATIENT: YO ESCOBAR MR#: [id number] : 1975 SEX: F AGE: 49 LOCATION: [facility] ORDER STATUS: ADM IN REPORT#: [id number] SERVICE REASON: cough ORDERING PHYSICIAN: BART ECHAVARRIA PROCEDURE: CXR1VW - CHEST 1VW Exam Type: CHEST 1VW Clinical Information: cough Comparison: None Findings: Small bilateral pleural effusions. The lungs are clear of infiltrates. The heart is enlarged. Bony and soft tissue structures of the chest wall are unremarkable. IMPRESSION: Cardiomegaly. Small bilateral pleural effusions. DICTATED BY: KALEE LEVI MD DATE: 01/15/25901 ELECTRONICALLY SIGNED BY: KALEE LEVI MD DATE: 01/15/25905 ASSESSMENT: ASSESSMENT: [ Normocytic anemia, POA Acute kidney injury, POA, today creatinine 3.2, 04/22/2023 creatinine 1.3 Uncontrolled Diabetes mellitius type2, POA Elevated BNP Elevated troponin Hypertension Hyperlipidemia PLAN: Admit patient to medical floor as inpatient status. Place patient on telemetry monitoring. Check iron panel, follow up with the results Check serum ferritin, follow up with the results Check LDH, reticulocyte count, peripheral smear, follow up with the results Monitor labs Transfuse packed red blood cells for hemoglobin less than 7 mg/dL FOBT ordered- GI consulted. We will follow their recommendations. Protonix IV ordered. 0.9% NS at 75 mL/HR IV fluid maintenance therapy Calculate FENA Check urine sodium, creatinine, osmolality Avoid nephrotoxic agents when possible Renally dose all medications when possible Consult Nephrology Service for evaluation and further recommendations, Dr. Singh Monitor patient's labs. Weight patient daily. Monitor intake and output. Check hemoglobin A1c in a.m. Glucometer checks a.c. and HS 1800 ADA diet Humulin R sliding scale Administer aspirin 162 mg by mouth times 1 dose Continue aspirin 81 mg by mouth once daily Nitropaste 0.5 inches anterior chest wall every 8 hours Trend troponin every 6 hours x 3 sets Supplemental oxygen to maintain O2 saturation greater than 92% Consult cardiology, we will follow their recommendations Check 2D echo in a.m., follow up with the results Consider resuming home medications once they have been reconciled. For now, Hydralazine 10 mg IV every 4 hours for systolic blood pressure greater than 160 mmHg GI prophylaxis, Protonix DVT prophylaxis, SCDs This plan has been approved by my attending, Dr. Crowell. NOAH ELLSWORTH MD January 15, 2025 11:34
[2025-01-15] MEDS ORDERED: INSU3INS3 SQ ×2 (11:38)
[2025-01-15] MEDS ORDERED: PIOG30TA70 PO (11:38)
[2025-01-15] MEDS ORDERED: FERS325 PO (11:38)
[2025-01-15] MEDS ORDERED: RIVA20TA PO (11:38)
[2025-01-15] MEDS ORDERED: LISI20TA24 PO (11:38)
[2025-01-15] MEDS ORDERED: ASPI-1443 PO (11:38)
[2025-01-15] MEDS ORDERED: METF-446 PO (11:38)
[2025-01-15] MEDS ORDERED: NIFE-40 PO (11:38)
[2025-01-15 12:10] LABS: HEMATOCRIT 27.9 % (36-48)
--- NOTE | 2025-01-15 14:47 | CONS ---
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, E/e' over 60, Elevated BNP: 2019 Strongly suspect pulmonary embolus-confirmed left lower extremity DVT and radiolucency left upper lobe on chest x-ray Normocytic anemia, POA Patient reports melena Unilateral edema related to extensive DVT in femoral and popliteal veins on left Acute kidney injury, POA, creatinine 3.2, 04/22/2023 creatinine 1.3 Uncontrolled Diabetes mellitius type2, POA Nonspecific Elevated troponin: 137, 121 Hypertension Hyperlipidemia This is a 49-year-old female patient with history of diabetes mellitus, chronic kidney disease, anemia, hypertension, and hyperlipidemia who presented to the ER for evaluation of shortness of breath. Review of chart demonstrates labs on admission showing severe anemia with hemoglobin 6.8, hematocrit 21.5; patient received 1 unit PRBC with hemoglobin 8. 9 and hematocrit 27.9 post transfusion. Patient also reported black stools; FOB pending gastroenterology consultation has been requested. Cardiology consultation requested for further evaluation and recommendations of elevated BNP 2069 and elevated troponin 137, 121. Chest x-ray with bilateral pleural effusions. ECG sinus tachycardia 106, no acute ST abnormalities. Patient is seen and examined in room, no family members present. Patient reports progressive shortness of breath and lower extremity edema over the past four days; reports orthopnea x3 pillows and PND. Patient denies chest pain/pressure, palpitations, dizziness, lightheadedness, presyncope or syncope. Past Medical History: [ Diabetes mellitus Hypertension Hyperlipidemia Chronic kidney disease Normocytic anemia Denies past history of cardiac issues ] Past Surgical History: [ ] Family History: [ ] Social History: [Bahamian-speaking ] Habits: [Never] smoker. [Denies] alcohol consumption. [Denies] illicit drug use Home Meds: [ ] Current Meds: [ ] Review of Systems: CONST: [No fever, fatigue, or weight changes.] EYES: [No recent vision problems.] ENT: [No congestion, ear pain, or sore throat.] C/V: [Reports BLE edema (worse on left), denies chest pain/pressure] RESP: Reports dry cough, orthopnea, PND, shortness of breath, denies wheezing ] GI: [No abdominal pain, nausea, vomiting, constipation, or diarrhea. Reports dark tarry stools.] : [No incontinence or dysuria.] SKIN: [No rash. Points to hyperpigmentation right calf and guillaume] NEURO: [No headache, focal numbness or weakness, dizziness, or seizures.] PSYCH: [No depression or anxiety.] HEME: [No abnormal bruising or bleeding.] LYMPH: [No swollen glands.] Physical Examination: GENERAL: [No acute distress. Obese.] HEAD: [Normal with no signs of head trauma.] EYES: [EOMI, conjunctiva and sclera normal.] ENT: [Hearing grossly intact,] NECK: [ Normal carotid upstrokes without bruits.] LUNGS: [Crackles both bases, decreased breath sounds RLL,] HEART: [Normal rate and rhythm. Somewhat diminished S1 and S2 without mumurs, gallop or rub.] VASC: [Peripheral pulses +2 bilaterally. LLE 3+ edema, RLE 2+ edema] ABD: [Bowel sounds normal, soft, nontender, no masses, no organomegaly. No audible bruits.] : [Not examined] LYMPH: [No lymphadenopathy noted.] EXT: [LLE 3+ edema, RLL a 2+ edema] SKIN: [No rashes or lesions noted. Hyperpigmentation from the proximal calf to the ankle on the right] NEURO: [Awake, alert, and oriented x3. No focal sensory or strength deficits noted.] Vital Signs (last 8hr) Date Time Temp Pulse Resp B/P (MAP) Pulse Ox O2 Delivery O2 Flow Rate FiO2 01/15/25 12:00 97.5 104 20 153/60 97 Room Air 01/15/25 09:30 95 Room Air* 0 21 01/15/25 09:20 98.6 115 20 141/85 95 Room Air 01/15/25 08:50 98.4 99 16 185/98 98 Room Air* 0 21 01/15/25 07:23 98.4 96 16 175/92 97 Room Air* 0 21 Laboratory: [ ] Hematology Labs: Test 01/15/25 11:40 01/15/25 00:47 Range/Units Hemoglobin 8.9 #L 12.0-16.0 g/dL Hematocrit 27.9 #L 36-48 % White Blood Count 7.8 4.8-10.8 K/uL Red Blood Count 2.52 L 4.00-5.50 MIL/uL Mean Corpuscular Volume 85.3 79-99 fL Mean Corpuscular Hemoglobin 27.0 27.0-33.0 pg Mean Corpuscular Hemoglobin Concent 31.6 L 32.0-36.0 g/dL Red Cell Distribution Width 14.2 11.0-15.5 % Platelet Count 432 H 130-400 K/uL Mean Platelet Volume 10.3 7.5-10.5 fL Immature Granulocyte % (Auto) 0.9 0-1 % Neutrophils (%) (Auto) 72.4 40.0-77.0 % Lymphocytes (%) (Auto) 15.4 L 21.0-51.0 % Monocytes (%) (Auto) 7.7 3.0-13.0 % Eosinophils (%) (Auto) 3.2 0.0-8.0 % Basophils (%) (Auto) 0.4 0.0-5.0 % Neutrophils # (Auto) 5.7 1.8-7.7 K/uL Lymphocytes # (Auto) 1.2 1.0-4.8 K/uL Monocytes # (Auto) 0.6 0.1-1.0 K/uL Eosinophils # (Auto) 0.25 0.00-0.70 K/uL Basophils # (Auto) 0.03 0.00-0.20 K/uL Absolute Immature Granulocyte (auto 0.07 0-1 K/uL Nucleated Red Blood Cells 0.0 0.0-0.19 % Reticulocyte Count (auto) 2.11707 H 0.42-2.23 % Immature Reticulocyte Fraction 36.20 H 0.18-0.48 % Chemistry Labs: Test 01/15/25 13:32 01/15/25 11:40 01/15/25 00:47 Range/Units Whole Blood Glucose 209 H 70-110 MG/DL Troponin I High Sensitivity 121 *H 4-50 ng/L Sodium Level 143 136-145 mmol/L Potassium Level 4.8 3.5-5.1 mmol/L Chloride Level 105 101-111 mmol/L Carbon Dioxide Level 29 21-32 mmol/L Blood Urea Nitrogen 34 H 7-18 mg/dL Creatinine 3.2 H 0.5-1.0 mg/dL Glomerular Filtration Rate Calc 17 >90 mL/min Random Glucose 211 H 70-105 mg/dL Hemoglobin A1c 11.3 H 4.0-6.0 % Estimated Average Glucose (eAG) 278 H 70-126 mg/dL Total Calcium 7.6 L 8.5-10.1 mg/dL Iron Level 33 #L 50-170 mcg/dL Total Iron Binding Capacity 197 L 250-450 mcg/dL Percent Iron Saturation 16.7 L 22-44 % Total Bilirubin 0.1 L 0.2-1.0 mg/dL Direct Bilirubin < 0.1 0.0-0.3 mg/dL Aspartate Amino Transf (AST/SGOT) 22 10-37 U/L Alanine Aminotransferase (ALT/SGPT) 16 12-78 U/L Alkaline Phosphatase 97 50-136 U/L Lactate Dehydrogenase 346 H 81-234 U/L Total Creatine Kinase 379 H 21-232 U/L B-Type Natriuretic Peptide 2070 H 0-100 pg/mL Total Protein 5.7 L 6.0-8.3 g/dL Albumin 1.3 L 3.5-5.0 g/dL Lipase 81 H 16-77 U/L Coagulation Labs: Test 01/15/25 00:47 Range/Units Prothrombin Time 10.4 9.6-11.6 SEC Prothromb Time International Ratio 0.98 0.85-1.15 Activated Partial Thromboplast Time 32.6 26.3-35.5 SEC Diagnostics / Radiology: Left upper lobe is relatively radiolucent as compared to the right, and there are mild bilateral pleural effusions with atelectasis or infiltrate right base and left. 48% ejection fraction by planimetry with E/e' over 60 suggesting high left ventricular filling pressure, mild to moderate left atrial dilation with LAD I 42, mild pulmonary hypertension PA P 43, grade 1 diastolic dysfunction, no evidence of RV strain, thin circumferential pericardial effusion with right atrial invagination and I/E mitral velocity ratio 1.22 suggesting early tamp onade Assessment/plan: Strongly suspect pulmonary embolus, has confirmed left lower extremity DVT Mild acute systolic and severe acute diastolic heart failure by echo/Doppler and BNP Pericardial effusion of uncertain etiology with signs of early tamponade despite limited pericardial fluid volume Normocytic anemia, POA Acute kidney injury, POA, creatinine 3.2, 04/22/2023 creatinine 1.3 Uncontrolled Diabetes mellitius type2, POA Elevated BNP: 2019 Nonspecific Elevated troponin: 137, 121 Hypertension Hyperlipidemia Elevated Troponin: Stable-denies any active cardiac symptoms. Troponin: 137, 121 ECG sinus tachycardia, 106, no acute ST abnormalities Elevation of troponin likely multifactorial including anemia, CKD, fluid overload or (much less likely) type 2 [place] supply-demand mismatch Echocardiogram does not show regional wall motion abnormality or RV strain but does show pericardial effusion and borderline systolic function with significantly impaired diastolic function We will initiate beta-rosibel therapy, hold aspirin and antiplatelets due to severe anemia Elevated BNP: BNP 2069 Creatinine 3.2, BUN 34 Chest x-ray demonstrates small bilateral pleural effusions This is a very ill patient who unfortunately has presented with severe anemia and what appears to be melena, concurrent with extensive left lower extremity deep venous thrombosis and probable pulmonary embolus. We would ordinarily anticoagulate, but in this case the patient may require inferior vena cava filter, which I could implant if there is consensus among physicians caring for her. I would like to confirm or refute pulmonary embolus, but unfortunately the creatinine 3.2 precludes use of contrast for CTA and the active heart failure would degrade the reliability of a V/Q scan. If there were significant perfusion defects, I suppose this would still be supportive of a diagnosis of pulmonary embolus, particularly if it also matched the relatively radiolucent left upper lobe findings on the chest x-ray. The symptoms were of relatively abrupt onset in the last 4-5 days. Heart failure could have been precipitated by pulmonary embolus, but further cardiac testing and diuresis will be necessary.. ATTESTATION BY PHYSICIAN I have seen and examined the patient, reviewed the above documentation, participated in medical decision making, made necessary modifications, and agree with the treatment plan as documented by my mid-level provider above. MD HARSH Franks [employer] January 15, 2025 14:47 NIGHAT HOUSE MD January 15, 2025 17:22
--- NOTE | 2025-01-15 16:02 | HMCIMG ---
Exam Type: US RENAL SONOGRAM Clinical Information: kidney failure Comparison: None Findings: The kidneys are hyperechoic consistent with renal parenchymal disease. There are no calculi. No hydronephrosis or calculi are seen. No renal masses are seen. There is no evidence of perinephric fluid on either side. No evidence of significant ureteral dilatation is seen. The right kidney measures 10.9 x 5 cm. The left kidney measures 10.3 x 4.9 cm. The urinary bladder is normal. No bladder masses, stones, or wall thickening is seen. IMPRESSION: Hyperechoic kidneys consistent with renal parenchymal disease.
--- NOTE | 2025-01-15 16:07 | NUR ---
DCP: HOME Pt currently lives with her 2 sons Mario Yeboah [phone] and Yared Yeboah [phone]. Pt denies insecurities with food, usp, and/or utilities. Pt does not have DME, home health, or provider services. Pt is able to complete ADLs independently. Pt uses [facility] for both Dr and RX needs. At [place] pt will want to go home and sons can assist with transportation. Addendum: 01/15/25 at 1610 by KENTRELL BAUER SS Amended: Links added.
--- NOTE | 2025-01-15 16:09 | HMCIMG ---
Exam Type: US VENOUS DOPPLER BILATERAL Clinical Information: r/o DVT Comparison: None Findings: The examination shows nonocclusive thrombosis of the superficial femoral vein and partially of the popliteal vein as well The rest of the venous structures evaluated shows no evidence of thrombosis. IMPRESSION: Thrombus as noted.
--- NOTE | 2025-01-15 16:32 | CONS ---
GASTROENTEROLOGY CONSULTATION NOTE Date of Consultation: January 15, 2025 Time of Consultation: 16:32 History of Present Illness: [This is a 49-year-old female with past medical history of CKD, hypertension, hyperlipidemia, diabetes who presented due to shortness of breath on exertion. She was found to be anemic with a hemoglobin of 6.8 and platelet count of 432. D-dimer 2297. Troponin elevated. We were consulted due to melena. She is pending FOBT. She denies shortness of breath during my assessment and appears to be comfortable. Last EGD and colonoscopy June 2024 for which EGD revealed mild gastritis and colonoscopy revealing diverticulosis, benign colon polyps. Review of Systems: CONSTITUTIONAL: No malaise or change in sensation of wellbeing. ENMT: No rhinorrhea, otorrhea, sinus pain, ear ache. CARDIOVASCULAR: No angina, palpitations, orthopnea or paroxysmal dyspnea. RESPIRATORY: No SOB. GASTROINTESTINAL: No abdominal pain, nausea, vomiting, diarrhea, hematemesis, melena or change in the patient's habitual bowel movements consistency/number. GENITOURINARY: No dysuria, hematuria or change in bladder continence. MUSCULOSKELETAL: No new muscle pain or decrease in muscular strength. No new joint swelling, redness or tenderness. SKIN: No new rash. Past Medical History: ADDITIONAL PAST MEDICAL HISTORY: [CKD, hypertension, hyperlipidemia, Diabetes mellitius type2] SOCIAL HISTORY: [Negative for smoking, alcohol use, drug use] SURGICAL HISTORY: [ section x4] Coded Allergies: No Known Allergies (Unverified Allergy, Unknown, 04/18/23) Physical Exam: GEN: Awake, alert, oriented in person, time and place, and in no acute distress. HEENT: No sinus tenderness. Tympanic membranes were not examined. No rhinorrhea. Oral pharyngeal mucosa is pink, moist and within normal limits. Neck is supple with no cervical lymphadenopathy, thyromegaly or JVD. CHEST: Inspection, palpation and percussion of the chest were unremarkable. Lung auscultation revealed normal breath sounds bilaterally. CARDIAC: PMI is within normal limits. Heart sounds are regular. Normal S1, S2. No gallop or murmur. ABD: Soft, non-tender and not distended. No peritoneal signs on palpation. No organomegaly. Normal bowel sounds. EXT: No cyanosis or clubbing. No edema. SKIN: Intact. No rashes. JOINTS: No evidence of synovitis or acute arthritis. NEURO: Alert and oriented to name, place and person. Cranial nerve examination is unremarkable. No focal motor deficits. Normal speech. Gait is normal. Strength is normal. Vital Sign (Last 24 Hours) 01/15/25 01/15/25 09:30 16:00 Temp 97.9 Pulse 100 Resp 20 B/P (MAP) 131/70 Pulse Ox 97 O2 Delivery Room Air O2 Flow Rate 0 FiO2 21 Laboratory: [ ] Laboratory: Test 01/15/25 15:53 01/15/25 11:40 01/15/25 01:32 01/15/25 01:29 Range/Units Whole Blood Glucose 195 H 70-110 MG/DL Hemoglobin 8.9 #L 12.0-16.0 g/dL Hematocrit 27.9 #L 36-48 % Troponin I High Sensitivity 121 *H 4-50 ng/L Urine Color COLORLESS YELLOW Urine Appearance CLEAR CLEAR Urine pH 8.5 H 5.0-8.0 Urine Specific Crump 1.010 1.001-1.031 Urine Protein 600 H NEGATIVE mg/dL Urine Glucose (UA) 500 H NEGATIVE mg/dL Urine Ketones 5 H NEGATIVE mg/dL Urine Occult Blood SMALL H NEGATIVE Urine Nitrate NEGATIVE NEGATIVE Urine Bilirubin NEGATIVE NEGATIVE mg/dL Urine Urobilinogen 0.2 0.2-1.0 mg/dL Urine Leukocyte Esterase NEGATIVE NEGATIVE Ramiro/uL Urine RBC 0-1 0-1 /HPF Urine WBC 11-25 H 0-1 /HPF Urine Squamous Epithelial Cells RARE 0-2 /HPF Urine Bacteria RARE None Seen /HPF Urine Osmolality 335 50-1200 mOsm/kg Urine Random Creatinine 27.05 L 30-135 mg/dL Urine Random Sodium 105 40-220 mmol/l Influenza Type A Antigen Negative For Type A NEGATIVE Influenza Type B Antigen Negative For Type B NEGATIVE SARS-CoV-2 Antigen (Rapid) PRESUMPTIVE NEGATIVE NEGATIVE Group A Streptococcus Rapid negative NEGATIVE Test 01/15/25 00:47 Range/Units White Blood Count 7.8 4.8-10.8 K/uL Red Blood Count 2.52 L 4.00-5.50 MIL/uL Mean Corpuscular Volume 85.3 79-99 fL Mean Corpuscular Hemoglobin 27.0 27.0-33.0 pg Mean Corpuscular Hemoglobin Concent 31.6 L 32.0-36.0 g/dL Red Cell Distribution Width 14.2 11.0-15.5 % Platelet Count 432 H 130-400 K/uL Mean Platelet Volume 10.3 7.5-10.5 fL Immature Granulocyte % (Auto) 0.9 0-1 % Neutrophils (%) (Auto) 72.4 40.0-77.0 % Lymphocytes (%) (Auto) 15.4 L 21.0-51.0 % Monocytes (%) (Auto) 7.7 3.0-13.0 % Eosinophils (%) (Auto) 3.2 0.0-8.0 % Basophils (%) (Auto) 0.4 0.0-5.0 % Neutrophils # (Auto) 5.7 1.8-7.7 K/uL Lymphocytes # (Auto) 1.2 1.0-4.8 K/uL Monocytes # (Auto) 0.6 0.1-1.0 K/uL Eosinophils # (Auto) 0.25 0.00-0.70 K/uL Basophils # (Auto) 0.03 0.00-0.20 K/uL Absolute Immature Granulocyte (auto 0.07 0-1 K/uL Nucleated Red Blood Cells 0.0 0.0-0.19 % Reticulocyte Count (auto) 2.43125 H 0.42-2.23 % Immature Reticulocyte Fraction 36.20 H 0.18-0.48 % Prothrombin Time 10.4 9.6-11.6 SEC Prothromb Time International Ratio 0.98 0.85-1.15 Activated Partial Thromboplast Time 32.6 26.3-35.5 SEC Sodium Level 143 136-145 mmol/L Potassium Level 4.8 3.5-5.1 mmol/L Chloride Level 105 101-111 mmol/L Carbon Dioxide Level 29 21-32 mmol/L Blood Urea Nitrogen 34 H 7-18 mg/dL Creatinine 3.2 H 0.5-1.0 mg/dL Glomerular Filtration Rate Calc 17 >90 mL/min Random Glucose 211 H 70-105 mg/dL Hemoglobin A1c 11.3 H 4.0-6.0 % Estimated Average Glucose (eAG) 278 H 70-126 mg/dL Total Calcium 7.6 L 8.5-10.1 mg/dL Iron Level 33 #L 50-170 mcg/dL Total Iron Binding Capacity 197 L 250-450 mcg/dL Percent Iron Saturation 16.7 L 22-44 % Total Bilirubin 0.1 L 0.2-1.0 mg/dL Direct Bilirubin < 0.1 0.0-0.3 mg/dL Aspartate Amino Transf (AST/SGOT) 22 10-37 U/L Alanine Aminotransferase (ALT/SGPT) 16 12-78 U/L Alkaline Phosphatase 97 50-136 U/L Lactate Dehydrogenase 346 H 81-234 U/L Total Creatine Kinase 379 H 21-232 U/L B-Type Natriuretic Peptide 2070 H 0-100 pg/mL Total Protein 5.7 L 6.0-8.3 g/dL Albumin 1.3 L 3.5-5.0 g/dL Lipase 81 H 16-77 U/L Current Medications Medications (Trade) Dose Ordered Sig/Efraín Route PRN Reason Start Time Stop Time Status Last Admin Dose Admin Acetaminophen (TYLenol 325MG TAB) 650 mg Q6H PRN PO TEMPERATURE GREATER THAN 101.5 01/15/25 02:30 02/14/25 02:29 Aspirin (Aspirin 81mg Ec Tab) 81 mg DAILY PO 01/15/25 09:00 02/14/25 08:59 Hold Hydralazine HCl (APRESOLine 20MG INJ) 10 mg Q6H PRN IV For:SBP above 160;DBP above 90 01/15/25 02:30 02/14/25 02:29 01/15/25 05:54 10 MG Insulin Human Regular (humuLIN R 100 UNIT/ML 3ML) INSULIN SLIDING SCAL... ACHS SQ 01/15/25 07:30 02/14/25 07:29 Morphine Sulfate (morPHINE 2MG SYG) 2 mg Q4H PRN IVP SEVERE PAIN (7-10) 01/15/25 03:00 01/22/25 02:59 01/15/25 05:42 2 MG Nitroglycerin (Nitroglycerin 1gm Oint) 0.5 inch Q8H TD 01/15/25 02:30 02/14/25 02:29 01/15/25 11:26 0.5 INCH Ondansetron HCl (zoFRAN 4MG INJ) 4 mg Q6H PRN IV NAUSEA/VOMITING 01/15/25 02:30 02/14/25 02:29 Pantoprazole Sodium (PROTonix 40MG INJ) 40 mg BID IVP 01/15/25 21:00 02/14/25 20:59 Pantoprazole Sodium (PROTonix 40MG TAB) 40 mg DAILY PO 01/15/25 09:00 01/15/25 09:53 DC Sodium Chloride 1,000 ml @ 75 mls/hr [id number] IV 01/15/25 02:30 01/15/25 09:53 DC 01/15/25 02:45 75 MLS/HR Diagnostics / Radiology: [COPY/PASTE HERE IF NO REPORTS PLEASE DELETE SECTION] Assessment: Melena Acute blood loss anemia CKD HTN Plan: DDX Melena: peptic ulcer, esophageal varices, angiodysplasia, Radha Hardy tear, Dieulafoy lesion, malignancy, small bowel source (angiodysplasia, ulcer, malignancy), and right colonic sources (angiodysplasia, colon polyp, malignancy, colitis) Plan: 1. NPO 2. EGD in AM. I have discussed the risks, benefits, alternatives, and potential complications. Questions were answered and they agree to proceed. 3. Pantoprazole 40 mg po bid 4. GI prophylaxis 5. Recommend checking Hg every 6 hours and transfuse to goal Hg >7. Please do not overtransfuse 6. Please contact our service if the patient has significant bleeding such as hematemesis and we can proceed sooner with the EGD Thanks you for allowing us to participate in the care of this patient! [facility] January 15, 2025 16:32
--- NOTE | 2025-01-15 16:42 | HMCSR ---
APPROVED REPORT EXAM: Two-dimensional and M-mode echocardiogram with Doppler and color Doppler. INDICATION ICD: elevated bnp 2D Dimensions RVDd3.2 cmLVEF(%)45.6 (>50%)LVED Vol(simp.)84.0 mL IVSd0.9 (0.7-1.1cm)FS(%)22 %LVES Vol(simp.)43.0 mL LVDd4.3 (3.8-5.6cm)LA (2D)4.5 (1.6-4.0cm)LVEF(%, simp.)48 % PWd1.2 (0.7-1.1cm)Ao Root(2D)2.6 (2.0-3.7cm)LA ESV INDEX (BP)44.46 mL/m2 LVDs3.4 (2.5-4.0cm)LVOT diam1.9 (1.8-2.4cm) IVC diam2.0 cm Deformation Strain Apical 4-13.9 % Apical 2-14.6 % Apical 3-11.5 % Global Strain-13.3 % M-Mode Dimensions EPSS1.1 cm LA (MM)4.5 (1.6-4.0cm) Ao Root(MM)2.7 (2.0-3.7cm) Aortic Valve AoV Vmax1.1 m/Marcellus Peak GR5.0 mmHgLVOT Vmax0.9 m/s AoV VTI0.2 mAo Mean GR3.0 mmHgLVOT VTI0.20 m JES (VMAX)2.48 cm2AVA (VTI) 2.5 cm2 Mitral Valve MV E Xtan544.8 cm/sDECEL Ahff643 ms MV A Vrui939.2 cm/sP 1/2 T27 ms E/A ratio0.9MVA (PHT)8.0 cm2 TDI E/E' Gvhujl71.4E/E' Rjfejpt26.9 Medial E' Peak V2.00 cm/sLateral E' Peak V2.05 cm/s Pulmonary Valve PV Vmax1.1 m/sPV VTI0.20 mPV Mean GR2.3 mmHg PV Peak GR4.5 mmHg Tricuspid Valve TR Vmax3.1 m/sRAP (EST) 3 sdMlRHSD17.0 mmHg TR Peak GR39.0 mmHg Left Ventricle The left ventricle is normal size. Mild global hypokinesia. Mild concentric left ventricular hypertro phy. LVEF is 48%. Stage I diastolic dysfunction with markedly elevated mean LV filling pressure. Right Ventricle The right ventricle is normal size; no RV strain noted. The right ventricular systolic function is no rmal. Atria The left atrium size is mildly-moderately dilated with FAN 42ml/m. The right atrium size is normal. Aortic Valve The aortic valve is normal in structure. No aortic regurgitation is present. There is no aortic valvu lar stenosis. Mitral Valve The mitral valve is normal in structure. Mitral regurgitation is mild. There is no mitral valve steno sis. Tricuspid Valve The tricuspid valve is normal in structure. There is mild tricuspid valve regurgitation noted. Pulmonic Valve The pulmonary valve is normal in structure. There is trace pulmonic valvular regurgitation. Mild pumo nary hypertension. Great Vessels The aortic root is normal in size. The IVC is borderline in size and collapses >50% with inspiration. Pericardium There is moderate pericardial effusion with early signs of tamponade: 1. I/E mitral flow velocity rat io 1.22 2. RA invagination 37% of cardiac cycle. Conclusion LVEF is 48%. Stage I diastolic dysfunction with markedly elevated mean LV filling pressure. The right ventricle is normal size; no RV strain noted. The left atrium size is mildly-moderately dilated with FAN 42ml/m. Mild pumonary hypertension. There is moderate pericardial effusion with early signs of tamponade: 1. I/E mitral flow velocity ratio 1.22 2. RA invagination 37% of cardiac cycle.
[2025-01-15] MEDS: furoSEMIDE 20MG VIAL IV ONE (17:31)
--- NOTE | 2025-01-15 21:14 | CONS ---
NEPHROLOGY CONSULTATION REASON FOR CONSULTATION: Renal failure. HISTORY OF PRESENT ILLNESS: This lady has multiple medical problems. The patient is admitted with worsening renal failure. The patient has underlying shortness of breath. The patient has fluid overload and severe anemia. The patient has underlying possibly chronic kidney disease, underlying diabetes. No other associated findings. No other aggravating or relieving factor. PAST MEDICAL HISTORY: As above. Diabetes, hypertension, CKD, hyperlipidemia and anemia. SOCIAL HISTORY: No smoking, alcohol or drug abuse. PAST SURGICAL HISTORY: . FAMILY HISTORY: Unremarkable for present contacts. No kidney stone reported to me. REVIEW OF SYSTEMS: CONSTITUTIONAL: Has been weak with no fever, chills or rigors. HEENT: With no headache, oral ulcer, sore throat or difficulty swallowing. RESPIRATORY: With no cough, expectoration, hemoptysis or pleuritic pain. CARDIOVASCULAR: Has shortness of breath. No orthopnea or PND. GASTROINTESTINAL: Negative for nausea, vomiting or diarrhea. GENITOURINARY: Negative for dysuria or hematuria. DERMATOLOGICAL: No rashes, pruritus or skin lesion. ENDOCRINE: No polyuria, polydipsia or polyphagia. PSYCHIATRIC: Negative for anxiety, depression or hallucinations. Other systemic review is unchanged. PHYSICAL EXAMINATION: GENERAL: Obese, lying in bed. VITAL SIGNS: Blood pressure is around 195/100, pulse is 110, respiratory rate is 20. HEENT: Head is atraumatic, normocephalic. Pupils are round and active. Sclerae are anicteric. Conjunctivae not pale. Oral mucosa is not dry. NECK: Supple. No masses or bruits. Thyroid is palpable. ____. CHEST: Shows equal thoracic percussion note being resonant in all areas. CARDIAC: Regular rhythm, no rub, no S3 or S4. No parasternal heave. ABDOMEN: With no guarding or tenderness. Bowel sounds are normoactive. No free fluid. EXTREMITIES: With edema and no cyanosis or clubbing. BACK: No tenderness or back deformities. NEUROLOGIC: Awake and alert. LABORATORY DATA: We have reviewed available labs in detail. Labs have shown the patient has low hemoglobin up to 6.8, white cell count is 21,000, sugars are elevated. The patient has creatinine of 3.2, BUN of 34. Old records reviewed. Imaging studies are reviewed. Iron saturation is ordered. Ferritin ordered. Troponin is elevated. Serologies are negative. Urine has shown significant proteinuria. IMAGING STUDIES: X-ray chest was personally reviewed. Renal ultrasound ordered, reviewed personally and has shown hyperechoic kidneys. The patient has echocardiogram showing ejection fraction of 48%. Old records have been reviewed. I have reviewed the labs. PROBLEMS: Include: * Renal failure, which may be acute or acute on chronic. * The patient has severe anemia. * Accelerated hypertension. * ____ diabetic nephropathy. * Underlying [id number] systolic and diastolic heart failure with fluid overload. * The patient has DVT detected before. * Elevated troponin. * Underlying hyperlipidemia. * Significant proteinuria, most likely nephrotic syndrome. * The patient is critically ill. PLAN: * I will have urine protein to creatinine. * Iron studies, ferritin. * Will need gentle diuresis. * Blood pressure control. * Diabetic renal diet. * IV iron as needed. * Epogen when blood pressure is controlled. * One Nephro-Nereida daily. * Follow up on blood pressure, electrolytes and overall status. Intake, output, weight and condition will be monitored. We have discussed with other team physicians and old record, external records have been reviewed. Intake, output, weight and electrolytes will be monitored and blood pressure will be controlled. Hypotension should be avoided. IV Dilaudid 0.5 q. 6 for pain. The patient's condition is critical and guarded. The patient will have a followup on blood pressure, electrolytes and overall status. Intake, output and weight will be monitored. Condition remains critical, guarded. TID: [id number] RECEIPT: [id number]
[2025-01-15] MEDS: PANTOPrazole 40 MG/VIAL IVP SCH (21:53)
[2025-01-16] VITALS (21 sets, daily range): BP systolic 121–171; BP diastolic 60–94; PULSE 78–125; RESP 16–20; TEMP 97–98.7; O2SAT 95–97
[2025-01-16 04:29] LABS: BASOPHILS # (AUTO) 0.04 K/uL (0.00-0.20); BASOPHILS % (AUTO) 0.5 % (0.0-5.0); EOSINOPHILS % (AUTO) 2.4 % (0.0-8.0); HEMATOCRIT 30.7 % (36-48); IMMATURE GRANULOCYTE ABSOLUTE 0.07 K/uL (0-1); LYMPHOCYTES # (AUTO) 0.8 K/uL (1.0-4.8); LYMPHOCYTES % (AUTO) 10.2 % (21.0-51.0); MEAN CORPUSCULAR HGB CONC 32.2 g/dL (32.0-36.0); MEAN CORPUSCULAR VOLUME 83.7 fL (79-99); MONOCYTES # (AUTO) 0.5 K/uL (0.1-1.0); MONOCYTES % (AUTO) 6.5 % (3.0-13.0); NEUTROPHILS # (AUTO) 6.5 K/uL (1.8-7.7); NEUTROPHILS % (AUTO) 79.5 % (40.0-77.0); PLATELET COUNT (AUTO) 418 K/uL (130-400); RED BLOOD CELL COUNT(AUTO) 3.67 MIL/uL (4.00-5.50); RED CELL DISTRIBUTION WIDTH 15.1 % (11.0-15.5); WHITE BLOOD COUNT (AUTO) 8.2 K/uL (4.8-10.8)
[2025-01-16 05:00] LABS: % IRON SATURATION 10.2 % (22-44)
[2025-01-16 05:05] LABS: ALBUMIN 1.5 g/dL (3.5-5.0); BILIRUBIN,TOTAL 0.3 mg/dL (0.2-1.0); CREATININE 3.4 mg/dL (0.5-1.0); MAGNESIUM 1.8 mg/dL (1.80-2.40); PHOSPHORUS 3.9 mg/dL (2.5-4.9); POTASSIUM 4.4 mmol/L (3.5-5.1); THYROID STIMULATING HORMONE 3.28 uIU/mL (0.36-3.74); TOTAL PROTEIN, SERUM 6.3 g/dL (6.0-8.3); URIC ACID 5.6 mg/dL (2.6-7.2)
[2025-01-16] MEDS: Vitamin B Complex/Vit C/Folic Acid PO SCH (09:00)
--- NOTE | 2025-01-16 11:30 | NUR ---
DR SRIVASTAVA WANTS TO POSTPONE IVC UNTIL TOMORROW AND WANTS THE EGD DONE TODAY.
[2025-01-16] MEDS ORDERED: LIDOCAINE HCL 1% 20 ML VIAL ONE (11:58)
[2025-01-16] MEDS ORDERED: proPOFol 10 MG/ML 20ML VIAL IV ONE (11:58)
[2025-01-16] MEDS ORDERED: COMPOUND IV MISC 1 EACH IVSOLN MISC PRN (12:30)
[2025-01-16] MEDS: hydrALAZine 25MG TABLET PO SCH (14:00)
[2025-01-16] MEDS: carVEDIlol 12.5 MG TABLET PO SCH (14:22)
[2025-01-16] MEDS ORDERED: COMPOUND IV REFRIGERATED 1 EACH IVSOLN MISC PRN (14:30)
--- NOTE | 2025-01-16 14:30 | NUR ---
PATIENT OFF THE FLOOR FOR VQ SCAN. HEPARIN DRIP WILL BE STARTED WHEN PATIENT GETS BACK. WEIGHT 72.30 KG / 159.4 LBS
--- NOTE | 2025-01-16 14:43 | HMCIMG ---
Exam Type: CHEST 1VW Clinical Information: SHORTNES OF BREATH Comparison: None Findings: The lungs are clear of infiltrates. The heart is enlarged. Bony and soft tissue structures of the chest wall are unremarkable. IMPRESSION: Cardiomegaly. Clear lungs.
--- NOTE | 2025-01-16 14:46 | PN ---
[facility] PROGRESS NOTE Date of Service: January 16, 2025 Time of Service: 14:42 SUBJECTIVE: Ms. Jesse Meza is a 49-year-old female that was seen and examined today on 01/15/2025. Patient came to the emergency department with a chief complaint of shortness of breath. Onset was four days ago. Location is to lungs. Character is described as, like I can not get enough air. Symptoms are aggravated with physical activity. There was no alleviating factors. Patient reports associated pedal edema. Today in the emergency department hemoglobin 6.8, hematocrit 21.5, creatinine 3.2, BUN 34, GFR 17, glucose 211 mg/dL, troponin 137.8, influenza negative, COVID negative, strep negative, BNP 2070, chest x-ray is pending radiology interpretation. Emergency room physician recommended patient be admitted with a diagnosis of anemia. 01/15: Patient seen and examined this morning at bedside. Chest x-ray positive for bilateral pleural effusions. Patient reports black, tarry stools. Hgb is 6.8 today, Hct 21.5. Gastroenterology was consulted for black, tarry stools. FOBT ordered and pending. Cardiology has been consulted. 2D echo results pending. Aspirin has been held. Protonix IV 40 mg added to medication regimen. Medications will be reconciled once available. 01/16: Patient was seen and examined this morning at bedside. Patients hgb today is 9.9, up from yesterdays 6.7. EGD done today, there was no evidence of an active bleed. Black tarry stools likely secondary to oral iron medication. Heparin drip started. 2D echocardiogram shows LVEF 48%, no RV strain, moderate pericardial effusion, early signs of tamponade. We will continue to follow cardiology recommendations. REVIEW OF SYSTEMS CONSTITUTIONAL: Denies fevers, chills, or night sweats. No unintentional weight loss reported. NEUROLOGICAL: Denies headache, amaurosis fugax, motor weakness, sensory deficit, vertigo/spinning sensation, gait abnormalities, or tremors. ENT: No hearing loss, otalgia, otorrhea, rhinitis, rhinorrhea, hoarseness, or sore throat. CARDIOVASCULAR: Denies any exertional angina, dyspnea on exertion, orthopnea, paroxysmal nocturnal dyspnea, palpitations, life-threatening arrhythmias, claudication. PULMONARY: Denies any shortness of breath, cough, phlegm/sputum, hemoptysis, pleuritic chest pain. SLEEP: Denies morning headaches, daytime somnolence or napping. Denies difficulty falling asleep, staying asleep, waking from sleep. Denies knowledge of snoring. GASTROINTESTINAL: Denies any type of dysphagia to either liquids or solids. Denies nausea, vomiting, pyrosis, early satiety, abdominal pain, diarrhea, constipation, or changes in stool consistency or caliber. Denies coffee-ground emesis, hematemesis, hematochezia, or melanotic stools. GENITOURINARY: Denies frequency, urgency, nocturia, hematuria or incontinence ( Storage/Irritative symptoms.) Low urinary stream, straining to void, urinary intermittency or hesitancy, splitting of the voiding stream, terminal dribbling. ENDOCRINOLOGIC: Denies polyuria, polydipsia, polyphagia or heat/cold intolerances. HEMATOLOGIC: Denies thrombophilia/previous clots, or coagulopathy/bleeding disorders. ONCOLOGIC: Denies personal history of malignancy. DERMATOLOGIC: Denies rashes or pruritus. PSYCHIATRIC: Denies any suicidal or homicidal ideation. Denies hallucinations. PHYSICAL EXAM GENERAL APPEARANCE: The patient is awake, alert, and oriented, in no acute cardiopulmonary distress. NEUROLOGICAL: Cranial nerves II-XII grossly intact. Motor is 5/5 in bilateral upper and lower extremities proximal to distal. No sensory deficits. HEENT: Face is symmetric. Pupils are equal and reactive. Extraocular movements are intact. NECK: Supple. No JVD. No thyromegaly. No submental, submandibular, pre- /postauricular, occipital or supraclavicular lymphadenopathy. CHEST: Normal chest expansion. No Telemetry. LUNGS: Absence of any rales, rhonchi or any wheezing. CARDIOVASCULAR: Regular. S1 and S2 normal. No appreciable rubs, murmurs or gallops. ABDOMEN: Soft, nontender, and nondistended. There is no rebound, voluntary guarding, or rigidity. : Deferred. No Buckner. EXTREMITIES: Non-edematous and not cyanotic. No clubbing. Good capillary refill. SKIN: No skin breakdown. Vital Signs (last 8hr) Date Time Temp Pulse Resp B/P (MAP) Pulse Ox O2 Delivery O2 Flow Rate FiO2 01/16/25 14:22 171/84 5/16/25 14:10 114 167/92 97 Room Air 01/16/25 13:40 120 167/84 95 Room Air 01/16/25 13:25 125 171/81 95 Room Air 01/16/25 13:10 114 158/86 96 Room Air 01/16/25 12:55 103 154/70 96 Room Air 01/16/25 12:40 98.4 104 20 144/87 96 Room Air 01/16/25 12:40 97.2 100 17 149/76 96 Room Air 21 01/16/25 12:35 97.2 103 18 152/77 95 Room Air 21 01/16/25 12:30 97.2 102 17 159/80 95 Room Air 01/16/25 12:25 97.2 98 17 154/78 95 Room Air 01/16/25 12:20 97.2 102 17 157/73 95 Room Air 01/16/25 12:15 97.2 97 16 146/80 96 Nasal Cannula 2.0 01/16/25 12:10 97.2 99 16 121/83 96 Nasal Cannula 3.0 28 01/16/25 11:50 89 16 150/79 99 mask 10.0 01/16/25 11:50 Mask 01/16/25 11:50 Mask 10.0 01/16/25 07:00 98.2 110 20 163/83 97 Room Air LABS: Laboratory: Test 01/16/25 12:27 01/16/25 08:25 01/16/25 04:01 01/15/25 17:55 Range/Units Whole Blood Glucose 145 H 70-110 MG/DL Stool Occult Blood NEGATIVE NEGATIVE White Blood Count 8.2 4.8-10.8 K/uL Red Blood Count 3.67 L 4.00-5.50 MIL/uL Hemoglobin 9.9 L 12.0-16.0 g/dL Hematocrit 30.7 L 36-48 % Mean Corpuscular Volume 83.7 79-99 fL Mean Corpuscular Hemoglobin 27.0 27.0-33.0 pg Mean Corpuscular Hemoglobin Concent 32.2 32.0-36.0 g/dL Red Cell Distribution Width 15.1 11.0-15.5 % Platelet Count 418 H 130-400 K/uL Mean Platelet Volume 10.3 7.5-10.5 fL Immature Granulocyte % (Auto) 0.9 0-1 % Neutrophils (%) (Auto) 79.5 H 40.0-77.0 % Lymphocytes (%) (Auto) 10.2 L 21.0-51.0 % Monocytes (%) (Auto) 6.5 3.0-13.0 % Eosinophils (%) (Auto) 2.4 0.0-8.0 % Basophils (%) (Auto) 0.5 0.0-5.0 % Neutrophils # (Auto) 6.5 1.8-7.7 K/uL Lymphocytes # (Auto) 0.8 L 1.0-4.8 K/uL Monocytes # (Auto) 0.5 0.1-1.0 K/uL Eosinophils # (Auto) 0.20 0.00-0.70 K/uL Basophils # (Auto) 0.04 0.00-0.20 K/uL Absolute Immature Granulocyte (auto 0.07 0-1 K/uL Nucleated Red Blood Cells 0.0 0.0-0.19 % Sodium Level 144 136-145 mmol/L Potassium Level 4.4 3.5-5.1 mmol/L Chloride Level 106 101-111 mmol/L Carbon Dioxide Level 27 21-32 mmol/L Blood Urea Nitrogen 31 H 7-18 mg/dL Creatinine 3.4 H 0.5-1.0 mg/dL Glomerular Filtration Rate Calc 16 >90 mL/min Random Glucose 167 H 70-105 mg/dL Uric Acid 5.6 2.6-7.2 mg/dL Total Calcium 8.3 L 8.5-10.1 mg/dL Phosphorus Level 3.9 2.5-4.9 mg/dL Magnesium Level 1.80 1.80-2.40 mg/dL Iron Level 22 #L 50-170 mcg/dL Total Iron Binding Capacity 215 L 250-450 mcg/dL Percent Iron Saturation 10.2 L 22-44 % Ferritin 70 15-150 ng/mL Total Bilirubin 0.3 0.2-1.0 mg/dL Aspartate Amino Transf (AST/SGOT) 22 10-37 U/L Alanine Aminotransferase (ALT/SGPT) 13 12-78 U/L Alkaline Phosphatase 86 50-136 U/L B-Type Natriuretic Peptide 3560 H 0-100 pg/mL Total Protein 6.3 6.0-8.3 g/dL Albumin 1.5 L 3.5-5.0 g/dL Thyroid Stimulating Hormone (TSH) 3.28 0.36-3.74 uIU/mL D-Dimer Quantitative (PE/DVT) 2297 *H 0-500 ng/mL Troponin I High Sensitivity 128 *H 4-50 ng/L Test 01/15/25 01:32 01/15/25 01:29 01/15/25 00:47 Range/Units Urine Color COLORLESS YELLOW Urine Appearance CLEAR CLEAR Urine pH 8.5 H 5.0-8.0 Urine Specific Jack 1.010 1.001-1.031 Urine Protein 600 H NEGATIVE mg/dL Urine Glucose (UA) 500 H NEGATIVE mg/dL Urine Ketones 5 H NEGATIVE mg/dL Urine Occult Blood SMALL H NEGATIVE Urine Nitrate NEGATIVE NEGATIVE Urine Bilirubin NEGATIVE NEGATIVE mg/dL Urine Urobilinogen 0.2 0.2-1.0 mg/dL Urine Leukocyte Esterase NEGATIVE NEGATIVE Ramiro/uL Urine RBC 0-1 0-1 /HPF Urine WBC 11-25 H 0-1 /HPF Urine Squamous Epithelial Cells RARE 0-2 /HPF Urine Bacteria RARE None Seen /HPF Urine Osmolality 335 50-1200 mOsm/kg Urine Random Creatinine 27.05 L 30-135 mg/dL Urine Random Sodium 105 40-220 mmol/l Influenza Type A Antigen Negative For Type A NEGATIVE Influenza Type B Antigen Negative For Type B NEGATIVE SARS-CoV-2 Antigen (Rapid) PRESUMPTIVE NEGATIVE NEGATIVE Group A Streptococcus Rapid negative NEGATIVE Reticulocyte Count (auto) 2.39366 H 0.42-2.23 % Immature Reticulocyte Fraction 36.20 H 0.18-0.48 % Prothrombin Time 10.4 9.6-11.6 SEC Prothromb Time International Ratio 0.98 0.85-1.15 Activated Partial Thromboplast Time 32.6 26.3-35.5 SEC Hemoglobin A1c 11.3 H 4.0-6.0 % Estimated Average Glucose (eAG) 278 H 70-126 mg/dL Direct Bilirubin < 0.1 0.0-0.3 mg/dL Lactate Dehydrogenase 346 H 81-234 U/L Total Creatine Kinase 379 H 21-232 U/L Lipase 81 H 16-77 U/L Current Medications Medications (Trade) Dose Ordered Sig/Efraín Route PRN Reason Start Time Stop Time Status Last Admin Dose Admin Acetaminophen (TYLenol 325MG TAB) 650 mg Q6H PRN PO TEMPERATURE GREATER THAN 101.5 01/15/25 02:30 02/14/25 02:29 Aspirin (Aspirin 81mg Ec Tab) 81 mg DAILY PO 01/15/25 09:00 01/16/25 07:43 DC Carvedilol (Coreg 12.5MG) 12.5 mg BID PO 01/16/25 12:30 02/15/25 12:29 01/16/25 14:22 12.5 MG Heparin Sodium/ Dextrose 250 ml @ 0 mls/hr PROTOCOL IV 01/16/25 14:00 02/15/25 13:59 Hydralazine HCl (APRESOLine 20MG INJ) 10 mg Q6H PRN IV For:SBP above 160;DBP above 90 01/15/25 02:30 02/14/25 02:29 01/16/25 09:49 10 MG Hydralazine HCl ([id number] TAB) 25 mg TID PO 01/16/25 12:30 02/15/25 12:29 01/16/25 14:22 25 MG Insulin Human Regular (humuLIN R 100 UNIT/ML 3ML) INSULIN SLIDING SCAL... ACHS SQ 01/15/25 07:30 02/14/25 07:29 01/15/25 21:54 4 UNIT Morphine Sulfate (morPHINE 2MG SYG) 2 mg Q4H PRN IVP SEVERE PAIN (7-10) 01/15/25 03:00 01/22/25 02:59 01/15/25 22:58 2 MG Nitroglycerin (Nitroglycerin 1gm Oint) 0.5 inch Q8H TD 01/15/25 02:30 02/14/25 02:29 01/16/25 01:32 0.5 INCH Ondansetron HCl (zoFRAN 4MG INJ) 4 mg Q6H PRN IV NAUSEA/VOMITING 01/15/25 02:30 02/14/25 02:29 Pantoprazole Sodium (PROTonix 40MG INJ) 40 mg BID IVP 01/15/25 21:00 02/14/25 20:59 01/16/25 09:43 40 MG Pantoprazole Sodium (PROTonix 40MG TAB) 40 mg DAILY PO 01/15/25 09:00 01/15/25 09:53 DC Sodium Chloride 1,000 ml @ 75 mls/hr [id number] IV 01/15/25 02:30 01/15/25 09:53 DC 01/15/25 02:45 75 MLS/HR Vitamin B Complex/ Vit C/Folic Acid (Nephrovite Tablet) 1 cap DAILY PO 01/16/25 09:00 02/15/25 08:59 DIAGNOSTICS / RADIOLOGY: [place] [id number] [place] [address] [id number] IMAGING REPORT Signed PATIENT: YO ESCOBAR MR#: [id number] : 1975 SEX: F AGE: 49 LOCATION: 2AH ORDER 133 STATUS: ADM IN REPORT#: [id number] SERVICE 1335 REASON: kidney failure ORDERING PHYSICIAN: DIVYA MORATAYA MD PROCEDURE: RENAL - US RENAL SONOGRAM Exam Type: US RENAL SONOGRAM Clinical Information: kidney failure Comparison: None Findings: The kidneys are hyperechoic consistent with renal parenchymal disease. There are no calculi. No hydronephrosis or calculi are seen. No renal masses are seen. There is no evidence of perinephric fluid on either side. No evidence of significant ureteral dilatation is seen. The right kidney measures 10.9 x 5 cm. The left kidney measures 10.3 x 4.9 cm. The urinary bladder is normal. No bladder masses, stones, or wall thickening is seen. IMPRESSION: Hyperechoic kidneys consistent with renal parenchymal disease. DICTATED BY: KALEE LEVI MD DATE: 01/15/25 1553 ELECTRONICALLY SIGNED BY: KALEE LEVI MD DATE: 01/15/25 1601 [facility] [address] [place] [address] [id number] IMAGING REPORT Signed PATIENT: YO ESCOBAR MR#: [id number] : 1975 SEX: F AGE: 49 LOCATION: 2AH ORDER 1211 STATUS: ADM IN REPORT#: [id number] SERVICE 1209 REASON: r/o DVT ORDERING PHYSICIAN: WILMER CROWELL MD PROCEDURE: VENOUS ERROL - US VENOUS DOPPLER BILATERAL Exam Type: US VENOUS DOPPLER BILATERAL Clinical Information: r/o DVT Comparison: None Findings: The examination shows nonocclusive thrombosis of the superficial femoral vein and partially of the popliteal vein as well The rest of the venous structures evaluated shows no evidence of thrombosis. IMPRESSION: Thrombus as noted. 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 There is moderate pericardial effusion and early signs of tamponade. -V/Q scan to rule out PE. -Cardiology consulted. We will continue to follow their recommendations. JAMI on CKD -Cr: 3.4 trending up. -Renal ultrasound: Hyperechoic kidneys c/w renal parenchymal disease. -Urinalysis shows significant proteinuria -Urine protein-creatinine ratio pending -avoid IV contrast -0.9% NS at 75 mL/HR IV fluid maintenance therapy -Calculate FENA -Check urine sodium, creatinine, osmolality -Avoid nephrotoxic agents when possible -Renally dose all medications when possible -Nephrology consulted, we will follow their recommendations Acute on chronic DVT -Heparin drip started. -V/Q scan pending -IVC filter on hold due to no active GI bleed. Acute anemia: -Iron panel ordered, follow up with results -Serum ferritin ordered, follow up with results -Transfuse if hgb < 7 mg/dL -FOBT ordered -EGD- no acute GI bleed seen Diabetes mellitus: -Insulin sliding scale -A1C: 11.9 -Monitor glucose levels. GI prophylaxis: Protonix IV ordered. DVT prophylaxis: Heparin This plan has been approved by my attending, Dr. Crowell. NOAH ELLSWORTH MD January 16, 2025 14:46
--- NOTE | 2025-01-16 15:37 | HMCIMG ---
Exam Type: NM PULMONARY/LUNG VQ SCAN Clinical Information: SHORTNESS OF BREATH Comparison: None Findings: Anterior and posterior pulmonary ventilation scan was performed during and following inhalation of 6.8 mCi of xenon-133 gas and pulmonary perfusion images were performed following intravenous injection of Tc-labeled MAA. Ventilation: homogeneous distribution of the xenon gas in both lungs during the single breath and equilibrium phases. Symmetrical clearance of the xenon gas demonstrated in the wash out phase. No evidence of air trapping. Perfusion: homogeneous distribution of the radiolabeled particles in both lungs with normal hilar and cardiac attenuation defect. No wedge shaped or focal perfusion defects are seen. Impression: No evidence of pulmonary embolism.
[2025-01-16 16:31] LABS: PROTHROMBIN TIME 10.6 SEC (9.6-11.6)
[2025-01-16] MEDS: HEParin 5,000 UNIT VIAL ONE (18:07)
[2025-01-16] MEDS: HEParin 25,000 UNITS/250ML D5W 250 ML IV SCH (18:17)
[2025-01-16] MEDS: IRON sUCROse COMPLEX 300 MG in 0.9% NACL 250ML 250 ML IV ONE (21:05)
--- NOTE | 2025-01-16 21:26 | PN ---
Problem List: Acute combined systolic and diastolic heart failure with 48% EF, E/e' over 60, Elevated BNP: 2020 Echocardiogram demonstrates pericardial effusion with early signs of tamponade despite modest pericardial fluid volume Pulmonary embolus excluded by V/Q scan Normocytic anemia, POA GI evaluation for anemia Patient reports melena Unilateral edema related to extensive DVT in femoral and popliteal veins on left Acute kidney injury, POA, creatinine 3.2, 04/22/2023 creatinine 1.3 Uncontrolled Diabetes mellitius type2, POA Nonspecific Elevated troponin: 137, 121 Hypertension Hyperlipidemia Patient offers no symptomatic complaints tonight and states that she is less short of breaths than on presentation. No rales or rhonchi, nonlabored respiration, normal color, appears comfortable and content. No JVD, normal S1 and S2, no murmur, no edema. Impression and plan: Heart failure seems to be improving, but the patient has echo evidence of possible early tamponade even though the effusion does not appear to be of high-volume. Careful observation of hemodynamic status and follow up chest x-ray/BNP/BNP we will be helpful. The patient is deep venous thrombosis should ideally be treated with anticoagulants but we will have to defer to the cage operator for safety of such treatment; inferior vena cava filter could be necessary. Vitals/Labs Vital Signs Date Time Temp Pulse Resp B/P (MAP) Pulse Ox O2 Delivery O2 Flow Rate FiO2 01/16/25 20:55 125/90 01/16/25 19:55 98.8 95 20 98 Room Air 01/16/25 12:40 21 01/16/25 12:15 2.0 Laboratory Tests 01/16/25 04:01 Conclusion LVEF is 48%. Stage I diastolic dysfunction with markedly elevated mean LV filling pressure. The right ventricle is normal size; no RV strain noted. The left atrium size is mildly-moderately dilated with FAN 42ml/m. Mild pumonary hypertension. There is moderate pericardial effusion with early signs of tamponade: 1. I/E mitral flow velocity ratio 1.22 2. RA invagination 37% of cardiac cycle. DICTATED BY: NIGHAT HOUSE MD DATE: 01/15/25 4407 Ventilation: homogeneous distribution of the xenon gas in both lungs during the single breath and equilibrium phases. Symmetrical clearance of the xenon gas demonstrated in the wash out phase. No evidence of air trapping. Perfusion: homogeneous distribution of the radiolabeled particles in both lungs with normal hilar and cardiac attenuation defect. No wedge shaped or focal perfusion defects are seen. Impression: No evidence of pulmonary embolism. DICTATED BY: KALEE LEVI MD DATE: 01/16/250 Medications Current Medications Acetaminophen 650 mg Q6H PRN PO; Start 01/15/25 at 02:30; Stop 02/14/25 at 02:29 Aspirin 162 mg ONCE ONCE PO Last administered on 01/15/25at 02:42; Start 01/15/25 at 02:30; Stop 01/15/25 at 02:31; Status DC Aspirin 81 mg DAILY PO; Start 01/15/25 at 09:00; Stop 01/16/25 at 07:43; Status DC Pantoprazole Sodium 40 mg DAILY PO; Start 01/15/25 at 09:00; Stop 01/15/25 at 09:53; Status DC Ondansetron HCl 4 mg Q6H PRN IV; Start 01/15/25 at 02:30; Stop 02/14/25 at 02:29 Morphine Sulfate 2 mg Q4H PRN IVP Last administered on 01/15/25at 22:58; Start 01/15/25 at 03:00; Stop 01/22/25 at 02:59 Nitroglycerin 0.5 inch Q8H TD Last administered on 01/16/25at 18:07; Start 01/15/25 at 02:30; Stop 02/14/25 at 02:29 Hydralazine HCl 10 mg Q6H PRN IV Last administered on 01/16/25at 09:49; Start 01/15/25 at 02:30; Stop 02/14/25 at 02:29 Sodium Chloride 1,000 ml @ 75 mls/hr [id number] IV Last administered on 01/15/25at 02:45; Start 01/15/25 at 02:30; Stop 01/15/25 at 09:53; Status DC Insulin Human Regular INSULIN SLIDING SCAL... ACHS SQ Last administered on 01/16/25at 17:47; Start 01/15/25 at 07:30; Stop 02/14/25 at 07:29 Pantoprazole Sodium 40 mg BID IVP Last administered on 01/16/25at 20:54; Start 01/15/25 at 21:00; Stop 02/14/25 at 20:59 Pantoprazole Sodium 40 mg ONCE ONCE IVP Last administered on 01/15/25at 11:25; Start 01/15/25 at 10:00; Stop 01/15/25 at 10:01; Status DC Furosemide 20 mg ONCE ONCE IV Last administered on 01/15/25at 17:31; Start 01/15/25 at 17:30; Stop 01/15/25 at 17:31; Status DC Vitamin B Complex/ Vit C/Folic Acid 1 cap DAILY PO; Start 01/16/25 at 09:00; Stop 02/15/25 at 08:59 Propofol 200 mg STK-MED ONCE IV; Start 01/16/25 at 11:58; Stop 01/16/25 at 11:58; Status DC Lidocaine HCl 20 ml STK-MED ONCE .ROUTE; Start 01/16/25 at 11:58; Stop 01/16/25 at 11:58; Status DC Iron Sucrose 300 mg/Sodium Chloride 250 ml @ 83 mls/hr ONCE ONCE IV Last administered on 01/16/25at 21:05; Start 01/16/25 at 21:00; Stop 01/17/25 at 00:00 Carvedilol 12.5 mg BID PO Last administered on 01/16/25at 20:55; Start 01/16/25 at 12:30; Stop 02/15/25 at 12:29 Hydralazine HCl 25 mg TID PO Last administered on 01/16/25at 20:54; Start 01/16/25 at 12:30; Stop 02/15/25 at 12:29 Heparin Sodium/ Dextrose 250 ml @ 0 mls/hr PROTOCOL IV Last administered on 01/16/25at 18:17; Start 01/16/25 at 14:00; Stop 02/15/25 at 13:59 Heparin Sodium (Porcine) 5,000 unit STK-MED ONCE .ROUTE Last administered on 01/16/25at 18:07; Start 01/16/25 at 17:55; Stop 01/16/25 at 17:56; Status DC NIGHAT HOUSE MD January 16, 2025 21:26
[2025-01-16 23:59] LABS: INR 1.02 (0.85-1.15); PROTHROMBIN TIME 10.8 SEC (9.6-11.6)
[2025-01-17] VITALS (17 sets, daily range): BP systolic 92–156; BP diastolic 56–88; PULSE 70–93; RESP 16–20; TEMP 97.8–98.5; O2SAT 97
[2025-01-17] MEDS: guaiFENesin-DM 200/20MG 10ML PO PRN (00:03)
--- NOTE | 2025-01-17 02:59 | PN ---
NEPHROLOGY NOTE SUBJECTIVE: The patient has multiple problems including renal failure and anemia. The patient has multiple other comorbidities. No fevers, chills, or rigors. No cough, expectoration, or hemoptysis. No abdominal pain. No nausea or vomiting. No chest pain. No orthopnea. Other systemic review is unchanged. The patient remains weak. The patient has underlying shortness of breath, fluid overload. The patient has anemia. EGD has been done with no acute bleeding. There is a moderate pericardial effusion. The patient has significant proteinuria. REVIEW OF SYSTEMS: CONSTITUTIONAL: No fever, chills, or rigors. HEENT: With no headache, oral ulcers, sore throat, or difficulty swallowing. RESPIRATORY: With no cough, hydration, hemoptysis, or pleuritic pain. CARDIOVASCULAR: No orthopnea or PND. GASTROINTESTINAL: Negative for nausea, vomiting, or diarrhea reported. GENITOURINARY: Negative for dysuria or hematuria. DERMATOLOGICAL: No rashes, pruritus or skin lesion. ENDOCRINE: No polyuria, polyphagia, or dysphagia. PSYCHIATRIC: Review is negative for anxiety, depression, or hallucinations. Other systemic review is unchanged. PHYSICAL EXAMINATION: GENERAL: Pale, no other distress. VITAL SIGNS: Blood pressure is 170/80, pulse is 110, respiratory rate is 18. HEENT: Head is atraumatic, normocephalic. Pupils are round and reactive to light. Sclerae are anicteric. Conjunctivae not pale. Oral mucosa is not dry. NECK: Without masses or bruits. Thyroid is palpable. Neck has no bruits. CHEST: Shows equal to thoracic percussion note being resonant in all areas. CARDIAC: Regular rhythm. No rub. No S3, S4. EXTREMITIES: Has mild edema. No cyanosis or clubbing. BACK: No tenderness or back deformities. LABORATORY DATA: Labs have shown hemoglobin is low up to 9.9, elevated creatinine of 3, low potassium, low iron binding capacity. Urine has shown marked proteinuria. PROBLEMS: Renal failure, qybni-of-npakslp nephrotic syndrome most likely in a patient who most likely has underlying diabetic nephropathy, anemia, low iron state, hypertension, hyperlipidemia. PLAN: Suggestions will be to continue with diuretics. This patient will need IV iron. IV fluids could be stopped. Urine cyrvjpw-sm-ygotziibbn ratio. DVT has been treated with heparin and may need anticoagulation. IV Dilaudid can be used for pain 0.5 q. 6. We will be monitoring closely. Intake, output, weight and overall status will be monitored. Nonsteroidal drugs will be avoided. Dose of medicine will be adjusted. I have discussed with other team physicians. Thank you for this patient. TID: [id number] RECEIPT: [id number]
[2025-01-17 05:31] LABS: ALBUMIN 1.1 g/dL (3.5-5.0); BILIRUBIN,TOTAL 0.2 mg/dL (0.2-1.0); CREATININE 3.5 mg/dL (0.5-1.0); MAGNESIUM 1.8 mg/dL (1.80-2.40); PHOSPHORUS 4.4 mg/dL (2.5-4.9); POTASSIUM 4.2 mmol/L (3.5-5.1); TOTAL PROTEIN, SERUM 4.8 g/dL (6.0-8.3)
[2025-01-17 05:55] LABS: BASOPHILS # (AUTO) 0.02 K/uL (0.00-0.20); BASOPHILS % (AUTO) 0.2 % (0.0-5.0); EOSINOPHILS # (AUTO) 0.33 K/uL (0.00-0.70); HEMATOCRIT 24.2 % (36-48); IMMATURE GRANULOCYTE ABSOLUTE 0.06 K/uL (0-1); LYMPHOCYTES # (AUTO) 1.8 K/uL (1.0-4.8); LYMPHOCYTES % (AUTO) 21.9 % (21.0-51.0); MEAN CORPUSCULAR HEMOGLOBIN 26.7 pg (27.0-33.0); MEAN CORPUSCULAR HGB CONC 31.8 g/dL (32.0-36.0); MONOCYTES # (AUTO) 0.7 K/uL (0.1-1.0); MONOCYTES % (AUTO) 8.3 % (3.0-13.0); NEUTROPHILS # (AUTO) 5.3 K/uL (1.8-7.7); NEUTROPHILS % (AUTO) 64.9 % (40.0-77.0); PLATELET COUNT (AUTO) 322 K/uL (130-400); RED BLOOD CELL COUNT(AUTO) 2.88 MIL/uL (4.00-5.50); WHITE BLOOD COUNT (AUTO) 8.2 K/uL (4.8-10.8)
[2025-01-17 10:02] LABS: BASOPHILS # (AUTO) 0.03 K/uL (0.00-0.20); BASOPHILS % (AUTO) 0.3 % (0.0-5.0); EOSINOPHILS # (AUTO) 0.24 K/uL (0.00-0.70); EOSINOPHILS % (AUTO) 2.4 % (0.0-8.0); HEMATOCRIT 26.4 % (36-48); IMMATURE GRANULOCYTE ABSOLUTE 0.07 K/uL (0-1); LYMPHOCYTES # (AUTO) 1.1 K/uL (1.0-4.8); LYMPHOCYTES % (AUTO) 11.1 % (21.0-51.0); MEAN CORPUSCULAR HEMOGLOBIN 26.8 pg (27.0-33.0); MEAN CORPUSCULAR HGB CONC 31.1 g/dL (32.0-36.0); MEAN CORPUSCULAR VOLUME 86.3 fL (79-99); MONOCYTES # (AUTO) 0.7 K/uL (0.1-1.0); MONOCYTES % (AUTO) 6.6 % (3.0-13.0); NEUTROPHILS % (AUTO) 78.9 % (40.0-77.0); PLATELET COUNT (AUTO) 317 K/uL (130-400); RED BLOOD CELL COUNT(AUTO) 3.06 MIL/uL (4.00-5.50); RED CELL DISTRIBUTION WIDTH 15.1 % (11.0-15.5); WHITE BLOOD COUNT (AUTO) 10.2 K/uL (4.8-10.8)
[2025-01-17] MEDS: IRON sUCROse COMPLEX 100 MG/5 ML VIAL IV ONE (12:05)
--- NOTE | 2025-01-17 12:36 | PN ---
[facility] CARDIOLOGY PROGRESS NOTE Date Patient Seen: January 17, 2025 Time of Visit: 12:29 Interval History: [No acute events overnight. The patient denies any cardiac symptoms or anginal equivalents. Renal function is worsening current creatinine of 3.5. The patient's hemoglobin has downtrended from 9.9-7.7 g. GI is following ] Physical Examination: GENERAL: [No acute distress. Obese.] HEAD: [Normal with no signs of head trauma.] EYES: [EOMI, conjunctiva and sclera normal.] ENT: [Hearing grossly intact,] NECK: [ Normal carotid upstrokes without bruits.] LUNGS: [Crackles both bases, decreased breath sounds RLL,] HEART: [Normal rate and rhythm. Somewhat diminished S1 and S2 without mumurs, gallop or rub.] VASC: [Peripheral pulses +2 bilaterally. LLE 3+ edema, RLE 2+ edema] ABD: [Bowel sounds normal, soft, nontender, no masses, no organomegaly. No audible bruits.] : [Not examined] LYMPH: [No lymphadenopathy noted.] EXT: [LLE 1+ edema, RLL a 1+ edema] SKIN: [No rashes or lesions noted. Hyperpigmentation from the proximal calf to the ankle on the right] NEURO: [Awake, alert, and oriented x3. No focal sensory or strength deficits noted.] Laboratory: [ ] Hematology Labs: Test 01/17/25 09:44 Range/Units White Blood Count 10.2 4.8-10.8 K/uL Red Blood Count 3.06 L 4.00-5.50 MIL/uL Hemoglobin 8.2 L 12.0-16.0 g/dL Hematocrit 26.4 L 36-48 % Mean Corpuscular Volume 86.3 79-99 fL Mean Corpuscular Hemoglobin 26.8 L 27.0-33.0 pg Mean Corpuscular Hemoglobin Concent 31.1 L 32.0-36.0 g/dL Red Cell Distribution Width 15.1 11.0-15.5 % Platelet Count 317 130-400 K/uL Mean Platelet Volume 10.5 7.5-10.5 fL Immature Granulocyte % (Auto) 0.7 0-1 % Neutrophils (%) (Auto) 78.9 H 40.0-77.0 % Lymphocytes (%) (Auto) 11.1 L 21.0-51.0 % Monocytes (%) (Auto) 6.6 3.0-13.0 % Eosinophils (%) (Auto) 2.4 0.0-8.0 % Basophils (%) (Auto) 0.3 0.0-5.0 % Neutrophils # (Auto) 8.0 H 1.8-7.7 K/uL Lymphocytes # (Auto) 1.1 1.0-4.8 K/uL Monocytes # (Auto) 0.7 0.1-1.0 K/uL Eosinophils # (Auto) 0.24 0.00-0.70 K/uL Basophils # (Auto) 0.03 0.00-0.20 K/uL Absolute Immature Granulocyte (auto 0.07 0-1 K/uL Nucleated Red Blood Cells 0.0 0.0-0.19 % Chemistry Labs: Test 01/17/25 12:04 01/17/25 05:01 01/16/25 04:01 01/15/25 17:55 Range/Units Whole Blood Glucose 220 H 70-110 MG/DL Bedside Glucose Comment Notified Nurse Sodium Level 142 136-145 mmol/L Potassium Level 4.2 3.5-5.1 mmol/L Chloride Level 107 101-111 mmol/L Carbon Dioxide Level 25 21-32 mmol/L Blood Urea Nitrogen 29 H 7-18 mg/dL Creatinine 3.5 H 0.5-1.0 mg/dL Glomerular Filtration Rate Calc 15 >90 mL/min Random Glucose 159 H 70-105 mg/dL Total Calcium 7.6 L 8.5-10.1 mg/dL Phosphorus Level 4.4 2.5-4.9 mg/dL Magnesium Level 1.80 1.80-2.40 mg/dL Total Bilirubin 0.2 0.2-1.0 mg/dL Aspartate Amino Transf (AST/SGOT) 15 10-37 U/L Alanine Aminotransferase (ALT/SGPT) 8 L 12-78 U/L Alkaline Phosphatase 62 50-136 U/L Total Protein 4.8 L 6.0-8.3 g/dL Albumin 1.1 L 3.5-5.0 g/dL Uric Acid 5.6 2.6-7.2 mg/dL Iron Level 22 #L 50-170 mcg/dL Total Iron Binding Capacity 215 L 250-450 mcg/dL Percent Iron Saturation 10.2 L 22-44 % Ferritin 70 15-150 ng/mL B-Type Natriuretic Peptide 3560 H 0-100 pg/mL Thyroid Stimulating Hormone (TSH) 3.28 0.36-3.74 uIU/mL Troponin I High Sensitivity 128 *H 4-50 ng/L Coagulation Labs: Test 01/17/25 11:20 01/16/25 23:28 01/15/25 17:55 Range/Units Activated Partial Thromboplast Time 43.9 #H 26.3-35.5 SEC Prothrombin Time 10.8 9.6-11.6 SEC Prothromb Time International Ratio 1.02 0.85-1.15 D-Dimer Quantitative (PE/DVT) 2297 *H 0-500 ng/mL Diagnostics / Radiology: [Copy/Paste Echos/Imaging Report here] Impression and Plan: [Acute combined systolic and diastolic heart failure with 48% EF, E/e' over 60, Elevated BNP: 2019 Echocardiogram demonstrates pericardial effusion with early signs of tamponade despite modest pericardial fluid volume Pulmonary embolus excluded by V/Q scan Normocytic anemia, POA GI evaluation for anemia Patient reports melena Unilateral edema related to extensive DVT in femoral and popliteal veins on left Acute kidney injury, POA, creatinine 3.2, 04/22/2023 creatinine 1.3 Uncontrolled Diabetes mellitius type2, POA Nonspecific Elevated troponin: 137, 121 Hypertension Hyperlipidemia # extensive DVT in femoral and popliteal veins on the left Left lower extremity shows 1+ pitting edema ] We will continue heparin infusion, prior to discharge we will consider initiating Eliquis Transfuse for hemoglobin greater than 7 g The patient denies any black stools, there is no signs or sites of bleeding We will reconsult GI for further assessment of her ongoing anemia We will repeat his CBC monitor hemoglobin prior to IVC filter placement #Acute combined systolic and diastolic heart failure with 48% EF Suspected ICM. NYHA II. The patient appears to be euvolemic and compensated on exam Review of most recent chest x-ray appears to be unremarkable Optimize GDM T we will continue Coreg 12.5 every 12 hours Worsening renal function creatinine 3.5 prior 3.4 Strict I's and O's and daily weights, keep on telemetry, monitor/replace electrolytes as needed BNP 3560/ troponins are weakly elevated with a flattened trend Thank you for this vessel cardiology will continue to follow along Lizandro feng MD ATTESTATION BY PHYSICIAN I have seen and examined the patient, reviewed the above documentation, participated in medical decision making, made necessary modifications, and agree with the treatment plan as documented by my mid-level provider above. MD MARK Pineda JAMES R MD January 17, 2025 12:36
--- NOTE | 2025-01-17 12:44 | PN ---
[facility] PROGRESS NOTE Date of Service: January 17, 2025 Time of Service: 12:38 SUBJECTIVE: Ms. Jesse Meza is a 49-year-old female that was seen and examined today on 01/15/2025. Patient came to the emergency department with a chief complaint of shortness of breath. Onset was four days ago. Location is to lungs. Character is described as, like I can not get enough air. Symptoms are aggravated with physical activity. There was no alleviating factors. Patient reports associated pedal edema. Today in the emergency department hemoglobin 6.8, hematocrit 21.5, creatinine 3.2, BUN 34, GFR 17, glucose 211 mg/dL, troponin 137.8, influenza negative, COVID negative, strep negative, BNP 2070, chest x-ray is pending radiology interpretation. Emergency room physician recommended patient be admitted with a diagnosis of anemia. 01/15: Patient seen and examined this morning at bedside. Chest x-ray positive for bilateral pleural effusions. Patient reports black, tarry stools. Hgb is 6.8 today, Hct 21.5. Gastroenterology was consulted for black, tarry stools. FOBT ordered and pending. Cardiology has been consulted. 2D echo results pending. Aspirin has been held. Protonix IV 40 mg added to medication regimen. Medications will be reconciled once available. 01/16: Patient was seen and examined this morning at bedside. Patients hgb today is 9.9, up from yesterdays 6.7. EGD done today, there was no evidence of an active bleed. Black tarry stools likely secondary to oral iron medication. Heparin drip started. 2D echocardiogram shows LVEF 48%, no RV strain, moderate pericardial effusion, early signs of tamponade. We will continue to follow cardiology recommendations. 01/17: Patient was seen and examined this morning at bedside. Hgb this morning was 7.7. Repeat hgb level was 8.2. Patient is currently being followed by Cardiology, GI, and nephrology. IVC filter placement ordered due to patients fluctuating hgb. 2D echo bedside limited study ordered to assess for cardiac tamponade. Patient is placed on NPO. REVIEW OF SYSTEMS CONSTITUTIONAL: Denies fevers, chills, or night sweats. No unintentional weight loss reported. NEUROLOGICAL: Denies headache, amaurosis fugax, motor weakness, sensory de ficit, vertigo/spinning sensation, gait abnormalities, or tremors. ENT: No hearing loss, otalgia, otorrhea, rhinitis, rhinorrhea, hoarseness, or sore throat. CARDIOVASCULAR: Denies any exertional angina, dyspnea on exertion, orthopnea, paroxysmal nocturnal dyspnea, palpitations, life-threatening arrhythmias, claudication. PULMONARY: Denies any shortness of breath, cough, phlegm/sputum, hemoptysis, pleuritic chest pain. SLEEP: Denies morning headaches, daytime somnolence or napping. Denies difficulty falling asleep, staying asleep, waking from sleep. Denies knowledge of snoring. GASTROINTESTINAL: Denies any type of dysphagia to either liquids or solids. Denies nausea, vomiting, pyrosis, early satiety, abdominal pain, diarrhea, constipation, or changes in stool consistency or caliber. Denies coffee-ground emesis, hematemesis, hematochezia, or melanotic stools. GENITOURINARY: Denies frequency, urgency, nocturia, hematuria or incontinence (Storage/Irritative symptoms.) Low urinary stream, straining to void, urinary intermittency or hesitancy, splitting of the voiding stream, terminal dribbling. ENDOCRINOLOGIC: Denies polyuria, polydipsia, polyphagia or heat/cold intolerances. HEMATOLOGIC: Denies thrombophilia/previous clots, or coagulopathy/bleeding disorders. ONCOLOGIC: Denies personal history of malignancy. DERMATOLOGIC: Denies rashes or pruritus. PSYCHIATRIC: Denies any suicidal or homicidal ideation. Denies hallucinations. PHYSICAL EXAM GENERAL APPEARANCE: The patient is awake, alert, and oriented, in no acute cardiopulmonary distress. NEUROLOGICAL: Cranial nerves II-XII grossly intact. Motor is 5/5 in bilateral upper and lower extremities proximal to distal. No sensory deficits. HEENT: Face is symmetric. Pupils are equal and reactive. Extraocular movements are intact. NECK: Supple. No JVD. No thyromegaly. No submental, submandibular, pre- /postauricular, occipital or supraclavicular lymphadenopathy. CHEST: Normal chest expansion. No Telemetry. LUNGS: Absence of any rales, rhonchi or any wheezing. CARDIOVASCULAR: Regular. S1 and S2 normal. No appreciable rubs, murmurs or gallops. ABDOMEN: Soft, nontender, and nondistended. There is no rebound, voluntary guarding, or rigidity. : Deferred. No Buckner. EXTREMITIES: Non-edematous and not cyanotic. No clubbing. Good capillary refill. SKIN: No skin breakdown. Vital Signs (last 8hr) Date Time Temp Pulse Resp B/P (MAP) Pulse Ox O2 Delivery O2 Flow Rate FiO2 01/17/25 10:30 98.1 72 20 141/74 97 Room Air 01/17/25 10:00 153/73 01/17/25 07:00 98.1 86 18 153/73 97 Room Air LABS: Laboratory: Test 01/17/25 12:04 01/17/25 11:20 01/17/25 09:44 01/17/25 05:01 Range/Units Whole Blood Glucose 220 H 70-110 MG/DL Bedside Glucose Comment Notified Nurse Activated Partial Thromboplast Time 43.9 #H 26.3-35.5 SEC White Blood Count 10.2 4.8-10.8 K/uL Red Blood Count 3.06 L 4.00-5.50 MIL/uL Hemoglobin 8.2 L 12.0-16.0 g/dL Hematocrit 26.4 L 36-48 % Mean Corpuscular Volume 86.3 79-99 fL Mean Corpuscular Hemoglobin 26.8 L 27.0-33.0 pg Mean Corpuscular Hemoglobin Concent 31.1 L 32.0-36.0 g/dL Red Cell Distribution Width 15.1 11.0-15.5 % Platelet Count 317 130-400 K/uL Mean Platelet Volume 10.5 7.5-10.5 fL Immature Granulocyte % (Auto) 0.7 0-1 % Neutrophils (%) (Auto) 78.9 H 40.0-77.0 % Lymphocytes (%) (Auto) 11.1 L 21.0-51.0 % Monocytes (%) (Auto) 6.6 3.0-13.0 % Eosinophils (%) (Auto) 2.4 0.0-8.0 % Basophils (%) (Auto) 0.3 0.0-5.0 % Neutrophils # (Auto) 8.0 H 1.8-7.7 K/uL Lymphocytes # (Auto) 1.1 1.0-4.8 K/uL Monocytes # (Auto) 0.7 0.1-1.0 K/uL Eosinophils # (Auto) 0.24 0.00-0.70 K/uL Basophils # (Auto) 0.03 0.00-0.20 K/uL Absolute Immature Granulocyte (auto 0.07 0-1 K/uL Nucleated Red Blood Cells 0.0 0.0-0.19 % Sodium Level 142 136-145 mmol/L Potassium Level 4.2 3.5-5.1 mmol/L Chloride Level 107 101-111 mmol/L Carbon Dioxide Level 25 21-32 mmol/L Blood Urea Nitrogen 29 H 7-18 mg/dL Creatinine 3.5 H 0.5-1.0 mg/dL Glomerular Filtration Rate Calc 15 >90 mL/min Random Glucose 159 H 70-105 mg/dL Total Calcium 7.6 L 8.5-10.1 mg/dL Phosphorus Level 4.4 2.5-4.9 mg/dL Magnesium Level 1.80 1.80-2.40 mg/dL Total Bilirubin 0.2 0.2-1.0 mg/dL Aspartate Amino Transf (AST/SGOT) 15 10-37 U/L Alanine Aminotransferase (ALT/SGPT) 8 L 12-78 U/L Alkaline Phosphatase 62 50-136 U/L Total Protein 4.8 L 6.0-8.3 g/dL Albumin 1.1 L 3.5-5.0 g/dL Test 01/16/25 23:28 01/16/25 08:25 01/16/25 04:01 01/15/25 17:55 Range/Units Prothrombin Time 10.8 9.6-11.6 SEC Prothromb Time International Ratio 1.02 0.85-1.15 Stool Occult Blood NEGATIVE NEGATIVE Uric Acid 5.6 2.6-7.2 mg/dL Iron Level 22 #L 50-170 mcg/dL Total Iron Binding Capacity 215 L 250-450 mcg/dL Percent Iron Saturation 10.2 L 22-44 % Ferritin 70 15-150 ng/mL B-Type Natriuretic Peptide 3560 H 0-100 pg/mL Thyroid Stimulating Hormone (TSH) 3.28 0.36-3.74 uIU/mL D-Dimer Quantitative (PE/DVT) 2297 *H 0-500 ng/mL Troponin I High Sensitivity 128 *H 4-50 ng/L Current Medications Medications (Trade) Dose Ordered Sig/Efraín Route PRN Reason Start Time Stop Time Status Last Admin Dose Admin Acetaminophen (TYLenol 325MG TAB) 650 mg Q6H PRN PO TEMPERATURE GREATER THAN 101.5 01/15/25 02:30 02/14/25 02:29 Aspirin (Aspirin 81mg Ec Tab) 81 mg DAILY PO 01/15/25 09:00 01/16/25 07:43 DC Carvedilol (Coreg 12.5MG) 12.5 mg BID PO 01/16/25 12:30 02/15/25 12:29 01/17/25 10:00 12.5 MG Guaifenesin/ Dextromethorphan (RobiTUSSin DM 200/20MG 10ML) 20 ml Q6H PRN PO COUGH 01/17/25 00:00 02/16/25 00:00 01/17/25 00:03 20 ML Heparin Sodium/ Dextrose 250 ml @ 0 mls/hr PROTOCOL IV 01/16/25 14:00 02/15/25 13:59 01/16/25 18:17 12.29 MLS/HR Hydralazine HCl (APRESOLine 20MG INJ) 10 mg Q6H PRN IV For:SBP above 160;DBP above 90 01/15/25 02:30 02/14/25 02:29 01/16/25 09:49 10 MG Hydralazine HCl ([id number] TAB) 25 mg TID PO 01/16/25 12:30 02/15/25 12:29 01/17/25 09:59 25 MG Insulin Human Regular (humuLIN R 100 UNIT/ML 3ML) INSULIN SLIDING SCAL... ACHS SQ 01/15/25 07:30 02/14/25 07:29 01/17/25 12:09 6 UNIT Morphine Sulfate (morPHINE 2MG SYG) 2 mg Q4H PRN IVP SEVERE PAIN (7-10) 01/15/25 03:00 01/22/25 02:59 01/15/25 22:58 2 MG Nitroglycerin (Nitroglycerin 1gm Oint) 0.5 inch Q8H TD 01/15/25 02:30 02/14/25 02:29 01/17/25 12:07 0.5 INCH Ondansetron HCl (zoFRAN 4MG INJ) 4 mg Q6H PRN IV NAUSEA/VOMITING 01/15/25 02:30 02/14/25 02:29 Pantoprazole Sodium (PROTonix 40MG INJ) 40 mg BID IVP 01/15/25 21:00 02/14/25 20:59 01/17/25 09:59 40 MG Pantoprazole Sodium (PROTonix 40MG TAB) 40 mg DAILY PO 01/15/25 09:00 01/15/25 09:53 DC Sodium Chloride 1,000 ml @ 75 mls/hr [id number] IV 01/15/25 02:30 01/15/25 09:53 DC 01/15/25 02:45 75 MLS/HR Vitamin B Complex/ Vit C/Folic Acid (Nephrovite Tablet) 1 cap DAILY PO 01/16/25 09:00 02/15/25 08:59 01/17/25 09:59 1 [facility] RADIOLOGY: [place] [address] IMAGING REPORT Signed PATIENT: YO ESCOBAR MR#: [id number] : 1975 SEX: F AGE: 49 LOCATION: 2AH ORDER [id number] STATUS: ADM IN REPORT#: [id number] SERVICE 1327 REASON: SHORTNESS OF BREATH ORDERING PHYSICIAN: WILMER CROWELL MD PROCEDURE: PULM VQ - NM PULMONARY/LUNG VQ SCAN Exam Type: NM PULMONARY/LUNG VQ SCAN Clinical Information: SHORTNESS OF BREATH Comparison: None Findings: Anterior and posterior pulmonary ventilation scan was performed during and following inhalation of 6.8 mCi of xenon-133 gas and pulmonary perfusion images were performed following intravenous injection of Tc-labeled MAA. Ventilation: homogeneous distribution of the xenon gas in both lungs during the single breath and equilibrium phases. Symmetrical clearance of the xenon gas demonstrated in the wash out phase. No evidence of air trapping. Perfusion: homogeneous distribution of the radiolabeled particles in both lungs with normal hilar and cardiac attenuation defect. No wedge shaped or focal perfusion defects are seen. Impression: No evidence of pulmonary embolism. DICTATED BY: KALEE LEVI MD DATE: 01/16/25 153 ELECTRONICALLY SIGNED BY: KALEE LEVI MD DATE: 01/16/25 1537 ASSESSMENT: Acute exacerbation of systolic and diastolic heart failure POA Acute on chronic DVT of lower extremity POA Normocytic anemia, POA JAMI on CKD POA unsure about baseline creatinine Moderate pericardial effusion, POA Acute blood loss anemia, POA Possible type 2 MA, POA Uncontrolled Diabetes mellitius type2, POA Elevated BNP Elevated troponin Hypertension Hyperlipidemia PLAN: Acute excacerbation of systolic and diastolic heart failure -2D echocardiogram: LVEF <48%. There is moderate pericardial effusion and early signs of tamponade. -V/Q scan to rule out PE- negative -Cardiology consulted. We will continue to follow their recommendations. JAMI on CKD -Cr: 3.5 trending up. -Renal ultrasound: Hyperechoic kidneys c/w renal parenchymal disease. -Urinalysis shows significant proteinuria -Urine protein-creatinine ratio- 84160 -avoid IV contrast -0.9% NS at 75 mL/HR IV fluid maintenance therapy -Avoid nephrotoxic agents when possible -Renally dose all medications when possible -Nephrology consulted, we will follow their recommendations Acute on chronic DVT -V/Q scan pending- negative for PE -Heparin drip on hold, IVC filter ordered, due to patients fluctuating hgb levels. Acute anemia: -Iron panel ordered, follow up with results -Serum ferritin ordered, follow up with results -Transfuse if hgb < 7 mg/dL -EGD- no acute GI bleed seen Diabetes mellitus: -Insulin sliding scale -A1C: 11.9 -Monitor glucose levels. GI prophylaxis: Protonix IV ordered. DVT prophylaxis: Heparin This plan has been approved by my attending, Dr. Crowell. NOAH ELLSWORTH MD January 17, 2025 12:44
[2025-01-17] MEDS ORDERED: IOHEXOL-350 50ML VIAL IV ONE (12:51)
[2025-01-17] MEDS ORDERED: HEParin-NS 1,000 UNIT/500 ML 1,000 ML IV ONE (12:51)
[2025-01-17] MEDS ORDERED: LIDOCAINE HCL 400MG/20ML VIAL ONE (12:51)
[2025-01-17] MEDS ORDERED: HEParin 10,000 UNIT/10ML (1,000 UNIT/ML) VIAL ONE (12:51)
[2025-01-17] MEDS ORDERED: FENTanyl CITRate PF 50 MCG/1 ML 2ML VIAL ONE (13:01)
[2025-01-17] MEDS ORDERED: MIDAZOLAM HCL 1 MG/ML 2ML VIAL ONE (13:01)
--- NOTE | 2025-01-17 13:36 | PRN ---
CLINICAL INDICATION: DVT. INDICATION: GI bleed, DVT.. SPEEDBOAT OPERATOR: Dr. Turner TECHNIQUE: Informed consent was obtained after explaining the procedure and potential complications. Patient was placed supine on the angio table and timeout performed. All elements of maximal sterile barrier technique, including hand hygiene and cutaneous antisepsis were used. Right side of the neck was prepped and draped in standard sterile fashion. Local anesthesia was applied and under ultrasound guidance, access was gained into the right internal jugular vein with a 21G needle. Under fluoroscopic guidance, a wire and sheath were advanced down into the inferior vena cava. IVC gram performed. Then, a Option filter was deployed in the infrarenal IVC. Final images revealed filter apex at the level of the pedicle of L2. The sheath was removed and hemostasis was achieved at the entry site with manual compression. Sterile dressing was applied. Contrast: 40 mL Omnipaque IV Fluoro: 0.8 min. Blood loss: < 5 mL Complications: None. IMPRESSION: Successful infrarenal placement of retrievable inferior vena cava filter. Filter retrieval should be attempted in 2-3 months, if filter is no longer needed. The head of the bed should be elevated at 45 degrees for 3 hours. IRVING TURNER DO January 17, 2025 13:36
--- NOTE | 2025-01-17 13:39 | HMCIMG ---
CLINICAL INDICATION: DVT. INDICATION: GI bleed, DVT.. SHEET ROCK SANDER: Dr. Turner TECHNIQUE: Informed consent was obtained after explaining the procedure and potential complications. Patient was placed supine on the angio table and timeout performed. All elements of maximal sterile barrier technique, including hand hygiene and cutaneous antisepsis were used. Right side of the neck was prepped and draped in standard sterile fashion. Local anesthesia was applied and under ultrasound guidance, access was gained into the right internal jugular vein with a 21G needle. Under fluoroscopic guidance, a wire and sheath were advanced down into the inferior vena cava. IVC gram performed. Then, a Option filter was deployed in the infrarenal IVC. Final images revealed filter apex at the level of the pedicle of L2. The sheath was removed and hemostasis was achieved at the entry site with manual compression. Sterile dressing was applied. Contrast: 40 mL Omnipaque IV Fluoro: 0.8 min. Blood loss: < 5 mL Complications: None. IMPRESSION: Successful infrarenal placement of retrievable inferior vena cava filter. Filter retrieval should be attempted in 2-3 months, if filter is no longer needed. The head of the bed should be elevated at 45 degrees for 3 hours.
--- NOTE | 2025-01-17 15:06 | PN ---
FOLLOWUP PROGRESS NOTE SUBJECTIVE: A 49-year-old female who initially presented to the hospital. She has had acute on chronic renal dysfunction. The patient's workup is consistent with diabetic nephropathy. The patient's initial hemoglobin A1c is 11. The patient is being seen as a followup visit for all of the above. REVIEW OF SYSTEMS: GENERAL: She is feeling weak and tired. HEENT: No change in vision. No change in hearing. CARDIOVASCULAR: No current chest pain or palpitations. PULMONARY: She denies any shortness of breath. GASTROINTESTINAL: She is tolerating a diet. MUSCULOSKELETAL: Complaints of weakness. PHYSICAL EXAMINATION: VITAL SIGNS: Blood pressure is 153/73, pulse in the 80s, afebrile. GENERAL: She is a chronically ill female, much older than appearing. HEENT: Head is atraumatic. Pupils are equal, roving to light. Oropharynx is without exudate. Nares clear. NECK: There is no JVP. There is no thyromegaly. No masses. CARDIOVASCULAR: Regular. There is no S3 or S4 gallop. LUNGS: Coarse with equal thoracic movement. ABDOMEN: Soft, nondistended and nontender. EXTREMITIES: Reveal no clubbing, no cyanosis. NEUROLOGICAL: She is awake. She is alert. LABORATORY DATA: Sodium 142, potassium 4, BUN 29, creatinine is 3.5. Hemoglobin 8.2, hematocrit 26. Protein and creatinine ratio is over 20. IMPRESSION: * Acute on chronic renal failure. * Diabetic nephropathy. * Hypertension. * Anemia. PLAN: The patient's creatinine continues to be elevated. The patient's workup is consistent with diabetic nephropathy. There is no acute need for any form of renal replacement therapy at this time. The patient remains on the iron for the anemia. We will continue to follow closely. All labs can be repeated in the morning. TID: [id number] RECEIPT: [id number]
--- NOTE | 2025-01-17 16:11 | NUR ---
BLOOD GLUCOSE WAS 55. PT WAS GIVEN APPLE JUICE WITH 2 PACKS OF REG SUGAR
--- NOTE | 2025-01-17 17:28 | NUR ---
BLOOD GLUCOSE WAS 118 NO MORE INTERVENTIONS WERE NEEDED PT ASYMPTOMATIC
--- NOTE | 2025-01-17 18:07 | HMCSR ---
APPROVED REPORT EXAM: Two-dimensional and M-mode echocardiogram with Doppler and color Doppler. Study Details: HTN , HLD , Diabts M , CKD INDICATION ICD: bedside limited echo to asses 2D Dimensions LVOT diam1.9 (1.8-2.4cm) Mitral Valve MV E Dvgi718.9 cm/sDECEL [id number] ms MV A Tlsz822.9 cm/s E/A ratio1.0 TDI E/E' Knhjvs92.1E/E' [id number] Medial E' Peak V5.24 cm/sLateral E' Peak V7.09 cm/s Left Ventricle Left ventricular cavity size is normal. LVEF is 45-50%. Stage II, diastolic dysfunction. Right Ventricle The right ventricle is normal size. The right ventricular systolic function is normal. Aortic Valve There is no aortic valvular stenosis. Mitral Valve There is no mitral valve stenosis. Pericardium Moderate pericardial effusion. Ascites is present. Conclusion This is a limited follow up echo. Left ventricular cavity size is normal. LVEF is 45-50%. Stage II, diastolic dysfunction. The right ventricle is normal size. The right ventricular systolic function is normal. Moderate pericardial effusion.
[2025-01-18] VITALS (7 sets, daily range): BP systolic 130–157; BP diastolic 59–86; PULSE 83–94; RESP 18–20; TEMP 98–98.3; O2SAT 94–97
[2025-01-18 03:59] LABS: BASOPHILS # (AUTO) 0.02 K/uL (0.00-0.20); BASOPHILS % (AUTO) 0.2 % (0.0-5.0); EOSINOPHILS # (AUTO) 0.12 K/uL (0.00-0.70); EOSINOPHILS % (AUTO) 1.5 % (0.0-8.0); HEMATOCRIT 26.2 % (36-48); IMMATURE GRANULOCYTE ABSOLUTE 0.06 K/uL (0-1); LYMPHOCYTES % (AUTO) 12.3 % (21.0-51.0); MEAN CORPUSCULAR HEMOGLOBIN 26.3 pg (27.0-33.0); MEAN CORPUSCULAR HGB CONC 31.3 g/dL (32.0-36.0); MONOCYTES # (AUTO) 0.6 K/uL (0.1-1.0); MONOCYTES % (AUTO) 7.5 % (3.0-13.0); NEUTROPHILS # (AUTO) 6.2 K/uL (1.8-7.7); NEUTROPHILS % (AUTO) 77.8 % (40.0-77.0); PLATELET COUNT (AUTO) 267 K/uL (130-400); RED BLOOD CELL COUNT(AUTO) 3.12 MIL/uL (4.00-5.50)
[2025-01-18 04:18] LABS: ALBUMIN 1.1 g/dL (3.5-5.0); BILIRUBIN,TOTAL 0.2 mg/dL (0.2-1.0); CREATININE 3.6 mg/dL (0.5-1.0); POTASSIUM 4.3 mmol/L (3.5-5.1); TOTAL PROTEIN, SERUM 4.9 g/dL (6.0-8.3)
--- NOTE | 2025-01-18 12:11 | PN ---
FOLLOWUP PROGRESS NOTE SUBJECTIVE: A 49-year-old female with a history of diabetes mellitus and hypertension. The patient was initially admitted to the hospital and found to have significant renal dysfunction. Workup is consistent with diabetic nephropathy. The patient's case was discussed in detail with the primary team. The patient did undergo IVC filter placement. She has a history of a DVT and the patient is being seen as a followup visit for all of the above. REVIEW OF SYSTEMS: GENERAL: She is feeling weak and tired. HEENT: No change in vision. No change in hearing. CARDIOVASCULAR: There is no current chest pain or palpitations. PULMONARY: She does complain of shortness of breath. GASTROINTESTINAL: She is tolerating a diet. MUSCULOSKELETAL: Complaints of weakness. PHYSICAL EXAMINATION: VITAL SIGNS: Blood pressure is 157/86, pulse in the 90s, afebrile. GENERAL: Chronically ill female, older than appearing. HEENT: Head is atraumatic. Pupils are equal, roving to light. Oropharynx is without exudate. Nares clear. NECK: There is no JVP. There is no thyromegaly. No masses. CARDIOVASCULAR: Regular. There is no S3 or S4 gallop. LUNGS: Coarse with equal thoracic movement. ABDOMEN: Soft, nondistended, nontender. EXTREMITIES: There is no clubbing, no cyanosis. NEUROLOGICAL: She is awake. She is alert. LABORATORY DATA: Hemoglobin 8.2, hematocrit 26, white cell count 8000. Sodium 137, BUN 29, creatinine 3.6, albumin is 1. IMPRESSION: * Acute on chronic renal failure. * Diabetic nephropathy. * Deep vein thrombosis. * Anemia. PLAN: I did discuss the case in detail with the primary team. The patient is status post IVC filter. The patient also with pericardial effusion. Workup is ongoing per Cardiology. There is no acute need for any form of renal replacement therapy at this time. We will continue to monitor closely. All labs will be repeated in the morning. TID: [id number] RECEIPT: [id number]
--- NOTE | 2025-01-18 12:13 | PN ---
[facility] PROGRESS NOTE Date Patient Seen: January 18, 2025 Time of Visit: 12:08 Interval History: [No acute events overnight. Patient underwent IVC filter placement yesterday by IR, the patient tolerated the procedure well without complications. Hemoglobin 8.2 g. Physical Examination: GENERAL: [No acute distress. Obese.] HEAD: [Normal with no signs of head trauma.] EYES: [EOMI, conjunctiva and sclera normal.] ENT: [Hearing grossly intact,] NECK: [ Normal carotid upstrokes without bruits.] LUNGS: [Crackles both bases, decreased breath sounds RLL,] HEART: [Normal rate and rhythm. Somewhat diminished S1 and S2 without mumurs, gallop or rub.] VASC: [Peripheral pulses +2 bilaterally. LLE 3+ edema, RLE 2+ edema] ABD: [Bowel sounds normal, soft, nontender, no masses, no organomegaly. No audible bruits.] : [Not examined] LYMPH: [No lymphadenopathy noted.] EXT: [LLE 1+ edema, RLL a 1+ edema] SKIN: [No rashes or lesions noted. Hyperpigmentation from the proximal calf to the ankle on the right] NEURO: [Awake, alert, and oriented x3. No focal sensory or strength deficits noted.] Laboratory: [ ] Hematology Labs: Test 01/18/25 03:49 Range/Units White Blood Count 8.0 4.8-10.8 K/uL Red Blood Count 3.12 L 4.00-5.50 MIL/uL Hemoglobin 8.2 L 12.0-16.0 g/dL Hematocrit 26.2 L 36-48 % Mean Corpuscular Volume 84.0 79-99 fL Mean Corpuscular Hemoglobin 26.3 L 27.0-33.0 pg Mean Corpuscular Hemoglobin Concent 31.3 L 32.0-36.0 g/dL Red Cell Distribution Width 15.0 11.0-15.5 % Platelet Count 267 130-400 K/uL Mean Platelet Volume 10.3 7.5-10.5 fL Immature Granulocyte % (Auto) 0.7 0-1 % Neutrophils (%) (Auto) 77.8 H 40.0-77.0 % Lymphocytes (%) (Auto) 12.3 L 21.0-51.0 % Monocytes (%) (Auto) 7.5 3.0-13.0 % Eosinophils (%) (Auto) 1.5 0.0-8.0 % Basophils (%) (Auto) 0.2 0.0-5.0 % Neutrophils # (Auto) 6.2 1.8-7.7 K/uL Lymphocytes # (Auto) 1.0 1.0-4.8 K/uL Monocytes # (Auto) 0.6 0.1-1.0 K/uL Eosinophils # (Auto) 0.12 0.00-0.70 K/uL Basophils # (Auto) 0.02 0.00-0.20 K/uL Absolute Immature Granulocyte (auto 0.06 0-1 K/uL Nucleated Red Blood Cells 0.0 0.0-0.19 % Chemistry Labs: Test 01/18/25 10:50 01/18/25 03:49 01/17/25 05:01 Range/Units Whole Blood Glucose 202 H 70-110 MG/DL Bedside Glucose Comment Notified Nurse Sodium Level 137 136-145 mmol/L Potassium Level 4.3 3.5-5.1 mmol/L Chloride Level 104 101-111 mmol/L Carbon Dioxide Level 26 21-32 mmol/L Blood Urea Nitrogen 29 H 7-18 mg/dL Creatinine 3.6 H 0.5-1.0 mg/dL Glomerular Filtration Rate Calc 15 >90 mL/min Random Glucose 182 H 70-105 mg/dL Total Calcium 7.8 L 8.5-10.1 mg/dL Total Bilirubin 0.2 0.2-1.0 mg/dL Aspartate Amino Transf (AST/SGOT) 15 10-37 U/L Alanine Aminotransferase (ALT/SGPT) 9 L 12-78 U/L Alkaline Phosphatase 68 50-136 U/L Total Protein 4.9 L 6.0-8.3 g/dL Albumin 1.1 L 3.5-5.0 g/dL Phosphorus Level 4.4 2.5-4.9 mg/dL Magnesium Level 1.80 1.80-2.40 mg/dL Coagulation Labs: Test 01/17/25 11:20 01/16/25 23:28 Range/Units Activated Partial Thromboplast Time 43.9 #H 26.3-35.5 SEC Prothrombin Time 10.8 9.6-11.6 SEC Prothromb Time International Ratio 1.02 0.85-1.15 Diagnostics / Radiology: [Copy/Paste Echos/Imaging Report here] Impression and Plan: [Acute combined systolic and diastolic heart failure with 48% EF, E/e' over 60, Pulmonary embolus excluded by V/Q scan Normocytic anemia, POA GI evaluation for anemia Unilateral edema related to extensive DVT in femoral and popliteal veins on left status post IVC filter placement Acute kidney injury, POA, creatinine 3.2, 04/22/2023 creatinine 1.3 Uncontrolled Diabetes mellitius type2, POA Nonspecific Elevated troponin: 137, 121 Hypertension Hyperlipidemia # extensive DVT in femoral and popliteal veins on the left Left lower extremity shows 1+ pitting edema ] We will continue heparin infusion, prior to discharge we will consider initiating Eliquis Transfuse for hemoglobin greater than 7 g. Current hemoglobin 8.2 g The patient underwent IVC filter placement by IR yesterday complications, patient tolerated procedure well #Acute combined systolic and diastolic heart failure with 48% EF Suspected ICM. NYHA II. The patient appears to be euvolemic and compensated on exam Review of most recent chest x-ray appears to be unremarkable Optimize GDM T we will continue Coreg 12.5 every 12 hours Worsening renal function creatinine 3.5 prior 3.4 Strict I's and O's and daily weights, keep on telemetry, monitor/replace electrolytes as needed BNP 3560/ troponins are weakly elevated with a flattened trend 2D echocardiogram 01/17/2025 EF 45-50% no concerning findings Thank you for this vessel cardiology will continue to follow along Lizandro feng MD ATTESTATION BY PHYSICIAN I have seen and examined the patient, reviewed the above documentation, participated in medical decision making, made necessary modifications, and agree with the treatment plan as documented by my mid-level provider above. MD MARK Pineda JAMES R MD January 18, 2025 12:12
--- NOTE | 2025-01-18 14:52 | PN ---
[facility] PROGRESS NOTE Date of Service: January 18, 2025 Time of Service: 14:43 SUBJECTIVE: Ms. Jesse Meza is a 49-year-old female that was seen and examined today on 01/15/2025. Patient came to the emergency department with a chief complaint of shortness of breath. Onset was four days ago. Location is to lungs. Character is described as, like I can not get enough air. Symptoms are aggravated with physical activity. There was no alleviating factors. Patient reports associated pedal edema. Today in the emergency department hemoglobin 6.8, hematocrit 21.5, creatinine 3.2, BUN 34, GFR 17, glucose 211 mg/dL, troponin 137.8, influenza negative, COVID negative, strep negative, BNP 2070, chest x-ray is pending radiology interpretation. Emergency room physician recommended patient be admitted with a diagnosis of anemia. 01/15: Patient seen and examined this morning at bedside. Chest x-ray positive for bilateral pleural effusions. Patient reports black, tarry stools. Hgb is 6.8 today, Hct 21.5. Gastroenterology was consulted for black, tarry stools. FOBT ordered and pending. Cardiology has been consulted. 2D echo results pending. Aspirin has been held. Protonix IV 40 mg added to medication regimen. Medications will be reconciled once available. 01/16: Patient was seen and examined this morning at bedside. Patients hgb today is 9.9, up from yesterdays 6.7. EGD done today, there was no evidence of an active bleed. Black tarry stools likely secondary to oral iron medication. Heparin drip started. 2D echocardiogram shows LVEF 48%, no RV strain, moderate pericardial effusion, early signs of tamponade. We will continue to follow cardiology recommendations. 01/17: Patient was seen and examined this morning at bedside. Hgb this morning was 7.7. Repeat hgb level was 8.2. Patient is currently being followed by Cardiology, GI, and nephrology. IVC filter placement ordered due to patients fluctuating hgb. 2D echo bedside limited study ordered to assess for cardiac tamponade. Patient is placed on NPO. 01/18/25: Lying in bed at the time of evaluation. Alert and oriented in no obvious distress. Patient is status post IVC placement 01/17/25. Patient's hemoglobin remained steady at 8.2 same as yesterday. Patient denies any chest pain, shortness of breath, or palpitations. Patient is being followed by Cardiology, GI and Nephrology. Seen by Cardiology today decided to start patient on Eliquis 5 mg b.i.d. Plan for possible discharge tomorrow. REVIEW OF SYSTEMS CONSTITUTIONAL: Denies fevers, chills, or night sweats. No unintentional weight loss reported. NEUROLOGICAL: Denies headache, amaurosis fugax, motor weakness, sensory deficit, vertigo/spinning sensation, gait abnormalities, or tremors. ENT: No hearing loss, otalgia, otorrhea, rhinitis, rhinorrhea, hoarseness, or sore throat. CARDIOVASCULAR: Denies any exertional angina, dyspnea on exertion, orthopnea, paroxysmal nocturnal dyspnea, palpitations, life-threatening arrhythmias, claudication. PULMONARY: Denies any shortness of breath, cough, phlegm/sputum, hemoptysis, pleuritic chest pain. SLEEP: Denies morning headaches, daytime somnolence or napping. Denies difficulty falling asleep, staying asleep, waking from sleep. Denies knowledge of snoring. GASTROINTESTINAL: Denies any type of dysphagia to either liquids or solids. Denies nausea, vomiting, pyrosis, early satiety, abdominal pain, diarrhea, constipation, or changes in stool consistency or caliber. Denies coffee-ground emesis, hematemesis, hematochezia, or melanotic stools. GENITOURINARY: Denies frequency, urgency, nocturia, hematuria or incontinence (Storage/Irritative symptoms.) Low urinary stream, straining to void, urinary intermittency or hesitancy, splitting of the voiding stream, terminal dribbling. ENDOCRINOLOGIC: Denies polyuria, polydipsia, polyphagia or heat/cold intolerances. HEMATOLOGIC: Denies thrombophilia/previous clots, or coagulopathy/bleeding disorders. ONCOLOGIC: Denies personal history of malignancy. DERMATOLOGIC: Denies rashes or pruritus. PSYCHIATRIC: Denies any suicidal or homicidal ideation. Denies hallucinations. PHYSICAL EXAM GENERAL APPEARANCE: The patient is awake, alert, and oriented, in no acute cardiopulmonary distress. NEUROLOGICAL: Cranial nerves II-XII grossly intact. Motor is 5/5 in bilateral upper and lower extremities proximal to distal. No sensory deficits. HEENT: Face is symmetric. Pupils are equal and reactive. Extraocular movements are intact. NECK: Supple. No JVD. No thyromegaly. No submental, submandibular, pre- /postauricular, occipital or supraclavicular lymphadenopathy. CHEST: Normal chest expansion. No Telemetry. LUNGS: Absence of any rales, rhonchi or any wheezing. CARDIOVASCULAR: Regular. S1 and S2 normal. No appreciable rubs, murmurs or gallops. ABDOMEN: Soft, nontender, and nondistended. There is no rebound, voluntary guarding, or rigidity. : Deferred. No Buckner. EXTREMITIES: Non-edematous and not cyanotic. No clubbing. Good capillary refill. SKIN: No skin breakdown. Vital Signs (last 8hr) Date Time Temp Pulse Resp B/P (MAP) Pulse Ox O2 Delivery O2 Flow Rate FiO2 01/18/25 11:00 98.1 84 18 136/76 96 Room Air 01/18/25 08:06 157/86 01/18/25 07:00 98.2 94 18 157/86 99 Room Air LABS: Laboratory: Test 01/18/25 10:50 01/18/25 03:49 01/17/25 11:20 01/17/25 05:01 Range/Units Whole Blood Glucose 202 H 70-110 MG/DL Bedside Glucose Comment Notified Nurse White Blood Count 8.0 4.8-10.8 K/uL Red Blood Count 3.12 L 4.00-5.50 MIL/uL Hemoglobin 8.2 L 12.0-16.0 g/dL Hematocrit 26.2 L 36-48 % Mean Corpuscular Volume 84.0 79-99 fL Mean Corpuscular Hemoglobin 26.3 L 27.0-33.0 pg Mean Corpuscular Hemoglobin Concent 31.3 L 32.0-36.0 g/dL Red Cell Distribution Width 15.0 11.0-15.5 % Platelet Count 267 130-400 K/uL Mean Platelet Volume 10.3 7.5-10.5 fL Immature Granulocyte % (Auto) 0.7 0-1 % Neutrophils (%) (Auto) 77.8 H 40.0-77.0 % Lymphocytes (%) (Auto) 12.3 L 21.0-51.0 % Monocytes (%) (Auto) 7.5 3.0-13.0 % Eosinophils (%) (Auto) 1.5 0.0-8.0 % Basophils (%) (Auto) 0.2 0.0-5.0 % Neutrophils # (Auto) 6.2 1.8-7.7 K/uL Lymphocytes # (Auto) 1.0 1.0-4.8 K/uL Monocytes # (Auto) 0.6 0.1-1.0 K/uL Eosinophils # (Auto) 0.12 0.00-0.70 K/uL Basophils # (Auto) 0.02 0.00-0.20 K/uL Absolute Immature Granulocyte (auto 0.06 0-1 K/uL Nucleated Red Blood Cells 0.0 0.0-0.19 % Sodium Level 137 136-145 mmol/L Potassium Level 4.3 3.5-5.1 mmol/L Chloride Level 104 101-111 mmol/L Carbon Dioxide Level 26 21-32 mmol/L Blood Urea Nitrogen 29 H 7-18 mg/dL Creatinine 3.6 H 0.5-1.0 mg/dL Glomerular Filtration Rate Calc 15 >90 mL/min Random Glucose 182 H 70-105 mg/dL Total Calcium 7.8 L 8.5-10.1 mg/dL Total Bilirubin 0.2 0.2-1.0 mg/dL Aspartate Amino Transf (AST/SGOT) 15 10-37 U/L Alanine Aminotransferase (ALT/SGPT) 9 L 12-78 U/L Alkaline Phosphatase 68 50-136 U/L Total Protein 4.9 L 6.0-8.3 g/dL Albumin 1.1 L 3.5-5.0 g/dL Activated Partial Thromboplast Time 43.9 #H 26.3-35.5 SEC Phosphorus Level 4.4 2.5-4.9 mg/dL Magnesium Level 1.80 1.80-2.40 mg/dL Test 01/16/25 23:28 Range/Units Prothrombin Time 10.8 9.6-11.6 SEC Prothromb Time International Ratio 1.02 0.85-1.15 Current Medications Medications (Trade) Dose Ordered Sig/Efraín Route PRN Reason Start Time Stop Time Status Last Admin Dose Admin Acetaminophen (TYLenol 325MG TAB) 650 mg Q6H PRN PO TEMPERATURE GREATER THAN 101.5 01/15/25 02:30 02/14/25 02:29 Aspirin (Aspirin 81mg Ec Tab) 81 mg DAILY PO 01/15/25 09:00 01/16/25 07:43 DC Carvedilol (Coreg 12.5MG) 12.5 mg BID PO 01/16/25 12:30 02/15/25 12:29 01/18/25 08:06 12.5 MG Guaifenesin/ Dextromethorphan (RobiTUSSin DM 200/20MG 10ML) 20 ml Q6H PRN PO COUGH 01/17/25 00:00 02/16/25 00:00 01/17/25 20:46 20 ML Heparin Sodium/ Dextrose 250 ml @ 0 mls/hr PROTOCOL IV 01/16/25 14:00 02/15/25 13:59 01/16/25 18:17 12.29 MLS/HR Hydralazine HCl (APRESOLine 20MG INJ) 10 mg Q6H PRN IV For:SBP above 160;DBP above 90 01/15/25 02:30 02/14/25 02:29 01/16/25 09:49 10 MG Hydralazine HCl ([id number] TAB) 25 mg TID PO 01/16/25 12:30 02/15/25 12:29 01/18/25 14:21 25 MG Insulin Human Regular (humuLIN R 100 UNIT/ML 3ML) INSULIN SLIDING SCAL... ACHS SQ 01/15/25 07:30 02/14/25 07:29 01/18/25 12:28 6 UNIT Morphine Sulfate (morPHINE 2MG SYG) 2 mg Q4H PRN IVP SEVERE PAIN (7-10) 01/15/25 03:00 01/22/25 02:59 01/15/25 22:58 2 MG Nitroglycerin (Nitroglycerin 1gm Oint) 0.5 inch Q8H TD 01/15/25 02:30 02/14/25 02:29 01/18/25 08:10 0.5 INCH Ondansetron HCl (zoFRAN 4MG INJ) 4 mg Q6H PRN IV NAUSEA/VOMITING 01/15/25 02:30 02/14/25 02:29 Pantoprazole Sodium (PROTonix 40MG INJ) 40 mg BID IVP 01/15/25 21:00 02/14/25 20:59 01/18/25 08:06 40 MG Pantoprazole Sodium (PROTonix 40MG TAB) 40 mg DAILY PO 01/15/25 09:00 01/15/25 09:53 DC Sodium Chloride 1,000 ml @ 75 mls/hr [id number] IV 01/15/25 02:30 01/15/25 09:53 DC 01/15/25 02:45 75 MLS/HR Vitamin B Complex/ Vit C/Folic Acid (Nephrovite Tablet) 1 cap DAILY PO 01/16/25 09:00 02/15/25 08:59 01/18/25 08:05 1 CAP DIAGNOSTICS / RADIOLOGY: [ ] ASSESSMENT: Acute exacerbation of systolic and diastolic heart failure POA Acute on chronic DVT of lower extremity POA Normocytic anemia, POA JAMI on CKD POA unsure about baseline creatinine Moderate pericardial effusion, POA Acute blood loss anemia, POA Possible type 2 CA, POA Uncontrolled Diabetes mellitius type2, POA Elevated BNP Elevated troponin Hypertension Hyperlipidemia PLAN: Acute excacerbation of systolic and diastolic heart failure -2D echocardiogram: LVEF <48%. There is moderate pericardial effusion and early signs of tamponade. -V/Q scan to rule out PE- negative -Cardiology consulted. We will continue to follow their recommendations. JAMI on CKD -Cr: 3.6 trending up. -Renal ultrasound: Hyperechoic kidneys c/w renal parenchymal disease. -Urinalysis shows significant proteinuria -Urine protein-creatinine ratio- [id number] -avoid IV contrast -0.9% NS at 75 mL/HR IV fluid maintenance therapy -Avoid nephrotoxic agents when possible -Renally dose all medications when possible -Nephrology consulted, we will follow their recommendations Acute on chronic DVT -Start on Eliquis 5 mg b.i.d. -Plan for discharge possibly tomorrow -V/Q scan - negative for PE -status post IVC filter placement on 01/17/2025 Acute anemia: -hemoglobin remained stable at 8.2, same as yesterday -Iron panel ordered, follow up with results -Serum ferritin ordered, follow up with results -Transfuse if hgb < 7 mg/dL -EGD- no acute GI bleed seen Diabetes mellitus: -Insulin sliding scale -A1C: 11.9 -Monitor glucose levels. GI prophylaxis: Protonix IV ordered. DVT prophylaxis: Heparin This plan has been approved by my attending, Dr. Crowell. ATTESTATION BY PHYSICIAN I have seen and examined the patient. I reviewed the documentation, medical decision making, and treatment plan as noted by the resident provider above. I agree with the findings and plan of care. Mervat Cummings MD OBI,LINDA Ludwig MD January 18, 2025 14:52
--- NOTE | 2025-01-18 18:25 | NUR ---
ELIQUIS PER DR. YOUSSEF RADIOLOGIST, OKAY TO START ELIQUIS 5 MG PO BID REQUESTED BY DR. IAN FLORES.
[2025-01-18] MEDS: APIXaban 5 MG TABLET PO SCH (20:38)
[2025-01-19] VITALS (7 sets, daily range): BP systolic 125–158; BP diastolic 64–78; PULSE 80–91; RESP 16–20; TEMP 97.3–98.4; O2SAT 98
[2025-01-19 03:48] LABS: BASOPHILS # (AUTO) 0.02 K/uL (0.00-0.20); BASOPHILS % (AUTO) 0.2 % (0.0-5.0); EOSINOPHILS % (AUTO) 2.4 % (0.0-8.0); HEMATOCRIT 26.6 % (36-48); IMMATURE GRANULOCYTE ABSOLUTE 0.06 K/uL (0-1); LYMPHOCYTES # (AUTO) 1.3 K/uL (1.0-4.8); LYMPHOCYTES % (AUTO) 15.4 % (21.0-51.0); MEAN CORPUSCULAR HEMOGLOBIN 26.4 pg (27.0-33.0); MEAN CORPUSCULAR HGB CONC 30.8 g/dL (32.0-36.0); MEAN CORPUSCULAR VOLUME 85.5 fL (79-99); MONOCYTES # (AUTO) 0.7 K/uL (0.1-1.0); MONOCYTES % (AUTO) 8.9 % (3.0-13.0); NEUTROPHILS % (AUTO) 72.4 % (40.0-77.0); PLATELET COUNT (AUTO) 250 K/uL (130-400); RED BLOOD CELL COUNT(AUTO) 3.11 MIL/uL (4.00-5.50); RED CELL DISTRIBUTION WIDTH 14.9 % (11.0-15.5); WHITE BLOOD COUNT (AUTO) 8.3 K/uL (4.8-10.8)
[2025-01-19 04:03] LABS: CREATININE 3.9 mg/dL (0.5-1.0); POTASSIUM 4.2 mmol/L (3.5-5.1)
[2025-01-19 04:04] LABS: ALBUMIN 1.1 g/dL (3.5-5.0); BILIRUBIN,TOTAL 0.2 mg/dL (0.2-1.0); TOTAL PROTEIN, SERUM 5.1 g/dL (6.0-8.3)
--- NOTE | 2025-01-19 07:18 | PN ---
Acute combined systolic and diastolic heart failure with 48% EF, E/e' over 60, Pulmonary embolus excluded by V/Q scan Normocytic anemia, POA GI evaluation for anemia Unilateral edema related to extensive DVT in femoral and popliteal veins on left status post IVC filter placement Acute kidney injury, POA, creatinine 3.2, 04/22/2023 creatinine 1.3 Uncontrolled Diabetes mellitius type2, POA Nonspecific Elevated troponin: 137, 121 Hypertension Hyperlipidemia No new symptoms, does not complain of shortness of breaths a day, no subsequent events over the weekend apart from insertion of IVC filter. Diminished breath sounds, normal S1 and S2, no murmur, left lower extremity edema persists. Impression and plan: Unclear cause for heart failure, V/Q scan negative for pulmonary embolus. IVC filter inserted. Renal function deteriorating, current EGFR13 mL stage five, creatinine 3.9. I will obtain a chest x-ray and nuclear scan to follow-up on heart failure and exclude ischemia Vitals/Labs Vital Signs Date Time Temp Pulse Resp B/P (MAP) Pulse Ox O2 Delivery O2 Flow Rate FiO2 01/19/25 04:12 98.2 83 18 145/72 98 Room Air 01/18/25 20:00 0 21 Laboratory Tests 01/19/25 03:33 Medications Current Medications Acetaminophen 650 mg Q6H PRN PO; Start 01/15/25 at 02:30; Stop 02/14/25 at 02:29 Aspirin 162 mg ONCE ONCE PO Last administered on 01/15/25at 02:42; Start 01/15/25 at 02:30; Stop 01/15/25 at 02:31; Status DC Aspirin 81 mg DAILY PO; Start 01/15/25 at 09:00; Stop 01/16/25 at 07:43; Status DC Pantoprazole Sodium 40 mg DAILY PO; Start 01/15/25 at 09:00; Stop 01/15/25 at 09:53; Status DC Ondansetron HCl 4 mg Q6H PRN IV; Start 01/15/25 at 02:30; Stop 02/14/25 at 02:29 Morphine Sulfate 2 mg Q4H PRN IVP Last administered on 01/15/25at 22:58; Start 01/15/25 at 03:00; Stop 01/22/25 at 02:59 Nitroglycerin 0.5 inch Q8H TD Last administered on 01/19/25at 03:17; Start 01/15/25 at 02:30; Stop 02/14/25 at 02:29 Hydralazine HCl 10 mg Q6H PRN IV Last administered on 01/16/25at 09:49; Start 01/15/25 at 02:30; Stop 02/14/25 at 02:29 Sodium Chloride 1,000 ml @ 75 mls/hr [id number] IV Last administered on 01/15/25at 02:45; Start 01/15/25 at 02:30; Stop 01/15/25 at 09:53; Status DC Insulin Human Regular INSULIN SLIDING SCAL... ACHS SQ Last administered on 01/18/25at 12:28; Start 01/15/25 at 07:30; Stop 02/14/25 at 07:29 Pantoprazole Sodium 40 mg BID IVP Last administered on 01/18/25at 20:37; Start 01/15/25 at 21:00; Stop 02/14/25 at 20:59 Pantoprazole Sodium 40 mg ONCE ONCE IVP Last administered on 01/15/25at 11:25; Start 01/15/25 at 10:00; Stop 01/15/25 at 10:01; Status DC Furosemide 20 mg ONCE ONCE IV Last administered on 01/15/25at 17:31; Start 01/15/25 at 17:30; Stop 01/15/25 at 17:31; Status DC Vitamin B Complex/ Vit C/Folic Acid 1 cap DAILY PO Last administered on 01/18/25at 08:05; Start 01/16/25 at 09:00; Stop 02/15/25 at 08:59 Propofol 200 mg STK-MED ONCE IV; Start 01/16/25 at 11:58; Stop 01/16/25 at 11:58; Status DC Lidocaine HCl 20 ml STK-MED ONCE .ROUTE; Start 01/16/25 at 11:58; Stop 01/16/25 at 11:58; Status DC Iron Sucrose 300 mg/Sodium Chloride 250 ml @ 83 mls/hr ONCE ONCE IV Last administered on 01/16/25at 21:05; Start 01/16/25 at 21:00; Stop 01/17/25 at 00:00; Status DC Carvedilol 12.5 mg BID PO Last administered on 01/18/25at 20:38; Start 01/16/25 at 12:30; Stop 02/15/25 at 12:29 Hydralazine HCl 25 mg TID PO Last administered on 01/18/25at 20:38; Start 01/16/25 at 12:30; Stop 02/15/25 at 12:29 Heparin Sodium/ Dextrose 250 ml @ 0 mls/hr PROTOCOL IV Last administered on 01/16/25at 18:17; Start 01/16/25 at 14:00; Stop 01/18/25 at 18:28; Status DC Heparin Sodium (Porcine) 5,000 unit STK-MED ONCE .ROUTE Last administered on 01/16/25at 18:07; Start 01/16/25 at 17:55; Stop 01/16/25 at 17:56; Status DC Guaifenesin/ Dextromethorphan 20 ml Q6H PRN PO Last administered on 01/18/25at 21:01; Start 01/17/25 at 00:00; Stop 02/16/25 at 00:00 Iron Sucrose 200 mg ONCE ONCE IV Last administered on 01/17/25at 12:05; Start 01/17/25 at 09:30; Stop 01/17/25 at 09:31; Status DC Lidocaine HCl 20 ml STK-MED ONCE .ROUTE; Start 01/17/25 at 12:51; Stop 01/17/25 at 12:51; Status DC Iohexol 50 ml STK-MED ONCE IV; Start 01/17/25 at 12:51; Stop 01/17/25 at 12:52; Status DC Heparin Sodium (Porcine) 10,000 unit STK-MED ONCE .ROUTE; Start 01/17/25 at 12:51; Stop 01/17/25 at 12:52; Status DC Heparin Sodium/ Sodium Chloride 1,000 ml @ As Directed STK-MED ONCE IV; Start 01/17/25 at 12:51; Stop 01/17/25 at 12:52; Status DC Fentanyl Citrate 100 mcg STK-MED ONCE .ROUTE; Start 01/17/25 at 13:01; Stop 01/17/25 at 13:01; Status DC Midazolam HCl 2 mg STK-MED ONCE .ROUTE; Start 01/17/25 at 13:01; Stop 01/17/25 at 13:01; Status DC Apixaban 5 mg BID PO Last administered on 01/18/25at 20:38; Start 01/18/25 at 21:00; Stop 02/17/25 at 20:59 NIGHAT HOUSE MD January 19, 2025 07:18
--- NOTE | 2025-01-19 07:43 | PN ---
GASTROENTEROLOGY PROGRESS NOTE Date of Visit: January 19, 2025 Time of Visit: 07:43 Events / Notes: [ ] Review of Systems: CONSTITUTIONAL: No malaise or change in sensation of wellbeing. ENMT: No rhinorrhea, otorrhea, sinus pain, ear ache. CARDIOVASCULAR: No angina, palpitations, orthopnea or paroxysmal dyspnea. RESPIRATORY: No SOB. GASTROINTESTINAL: No abdominal pain, nausea, vomiting, diarrhea, hematemesis, melena or change in the patient's habitual bowel movements consistency/number. GENITOURINARY: No dysuria, hematuria or change in bladder continence. MUSCULOSKELETAL: No new muscle pain or decrease in muscular strength. No new joint swelling, redness or tenderness. SKIN: No new rash. Physical Exam: GEN: Awake, alert, oriented in person, time and place, and in no acute distress. HEENT: No sinus tenderness. Tympanic membranes were not examined. No rhinorrhea. Oral pharyngeal mucosa is pink, moist and within normal limits. Neck is supple with no cervical lymphadenopathy, thyromegaly or JVD. CHEST: Inspection, palpation and percussion of the chest were unremarkable. Lung auscultation revealed normal breath sounds bilaterally. CARDIAC: PMI is within normal limits. Heart sounds are regular. Normal S1, S2. No gallop or murmur. ABD: Soft, non-tender and not distended. No peritoneal signs on palpation. No organomegaly. Normal bowel sounds. EXT: No cyanosis or clubbing. No edema. SKIN: Intact. No rashes. JOINTS: No evidence of synovitis or acute arthritis. NEURO: Alert and oriented to name, place and person. Cranial nerve examination is unremarkable. No focal motor deficits. Normal speech. Gait is normal. Strength is normal. Vital Signs (last 8hr) Date Time Temp Pulse Resp B/P (MAP) Pulse Ox O2 Delivery O2 Flow Rate FiO2 01/19/25 04:12 98.2 83 18 145/72 98 Room Air 01/19/25 00:05 98.4 80 18 125/64 99 Room Air Laboratory: [ ] Laboratory: Test 01/19/25 05:45 01/19/25 03:33 01/18/25 10:50 01/17/25 11:20 Range/Units Whole Blood Glucose 126 H 70-110 MG/DL White Blood Count 8.3 4.8-10.8 K/uL Red Blood Count 3.11 L 4.00-5.50 MIL/uL Hemoglobin 8.2 L 12.0-16.0 g/dL Hematocrit 26.6 L 36-48 % Mean Corpuscular Volume 85.5 79-99 fL Mean Corpuscular Hemoglobin 26.4 L 27.0-33.0 pg Mean Corpuscular Hemoglobin Concent 30.8 L 32.0-36.0 g/dL Red Cell Distribution Width 14.9 11.0-15.5 % Platelet Count 250 130-400 K/uL Mean Platelet Volume 10.5 7.5-10.5 fL Immature Granulocyte % (Auto) 0.7 0-1 % Neutrophils (%) (Auto) 72.4 40.0-77.0 % Lymphocytes (%) (Auto) 15.4 L 21.0-51.0 % Monocytes (%) (Auto) 8.9 3.0-13.0 % Eosinophils (%) (Auto) 2.4 0.0-8.0 % Basophils (%) (Auto) 0.2 0.0-5.0 % Neutrophils # (Auto) 6.0 1.8-7.7 K/uL Lymphocytes # (Auto) 1.3 1.0-4.8 K/uL Monocytes # (Auto) 0.7 0.1-1.0 K/uL Eosinophils # (Auto) 0.20 0.00-0.70 K/uL Basophils # (Auto) 0.02 0.00-0.20 K/uL Absolute Immature Granulocyte (auto 0.06 0-1 K/uL Nucleated Red Blood Cells 0.0 0.0-0.19 % Red Blood Cell Morphology See comments Sodium Level 135 L 136-145 mmol/L Potassium Level 4.2 3.5-5.1 mmol/L Chloride Level 101 101-111 mmol/L Carbon Dioxide Level 25 21-32 mmol/L Blood Urea Nitrogen 27 H 7-18 mg/dL Creatinine 3.9 H 0.5-1.0 mg/dL Glomerular Filtration Rate Calc 13 >90 mL/min Random Glucose 133 H 70-105 mg/dL Total Calcium 7.8 L 8.5-10.1 mg/dL Total Bilirubin 0.2 0.2-1.0 mg/dL Aspartate Amino Transf (AST/SGOT) 16 10-37 U/L Alanine Aminotransferase (ALT/SGPT) 9 L 12-78 U/L Alkaline Phosphatase 71 50-136 U/L Total Protein 5.1 L 6.0-8.3 g/dL Albumin 1.1 L 3.5-5.0 g/dL Bedside Glucose Comment Notified Nurse Activated Partial Thromboplast Time 43.9 #H 26.3-35.5 SEC Current Medications Medications (Trade) Dose Ordered Sig/Efraín Route PRN Reason Start Time Stop Time Status Last Admin Dose Admin Acetaminophen (TYLenol 325MG TAB) 650 mg Q6H PRN PO TEMPERATURE GREATER THAN 101.5 01/15/25 02:30 02/14/25 02:29 Apixaban (EliquIS) 5 mg BID PO 01/18/25 21:00 02/17/25 20:59 01/18/25 20:38 5 MG Aspirin (Aspirin 81mg Ec Tab) 81 mg DAILY PO 01/15/25 09:00 01/16/25 07:43 DC Carvedilol (Coreg 12.5MG) 12.5 mg BID PO 01/16/25 12:30 02/15/25 12:29 01/18/25 20:38 12.5 MG Guaifenesin/ Dextromethorphan (RobiTUSSin DM 200/20MG 10ML) 20 ml Q6H PRN PO COUGH 01/17/25 00:00 02/16/25 00:00 01/18/25 21:01 20 ML Heparin Sodium/ Dextrose 250 ml @ 0 mls/hr PROTOCOL IV 01/16/25 14:00 01/18/25 18:28 DC 01/16/25 18:17 12.29 MLS/HR Hydralazine HCl (APRESOLine 20MG INJ) 10 mg Q6H PRN IV For:SBP above 160;DBP above 90 01/15/25 02:30 02/14/25 02:29 01/16/25 09:49 10 MG Hydralazine HCl ([id number] TAB) 25 mg TID PO 01/16/25 12:30 02/15/25 12:29 01/18/25 20:38 25 MG Insulin Human Regular (humuLIN R 100 UNIT/ML 3ML) INSULIN SLIDING SCAL... ACHS SQ 01/15/25 07:30 02/14/25 07:29 01/18/25 12:28 6 UNIT Morphine Sulfate (morPHINE 2MG SYG) 2 mg Q4H PRN IVP SEVERE PAIN (7-10) 01/15/25 03:00 01/22/25 02:59 01/15/25 22:58 2 MG Nitroglycerin (Nitroglycerin 1gm Oint) 0.5 inch Q8H TD 01/15/25 02:30 02/14/25 02:29 01/19/25 03:17 0.5 INCH Ondansetron HCl (zoFRAN 4MG INJ) 4 mg Q6H PRN IV NAUSEA/VOMITING 01/15/25 02:30 02/14/25 02:29 Pantoprazole Sodium (PROTonix 40MG INJ) 40 mg BID IVP 01/15/25 21:00 02/14/25 20:59 01/18/25 20:37 40 MG Pantoprazole Sodium (PROTonix 40MG TAB) 40 mg DAILY PO 01/15/25 09:00 01/15/25 09:53 DC Sodium Chloride 1,000 ml @ 75 mls/hr [id number] IV 01/15/25 02:30 01/15/25 09:53 DC 01/15/25 02:45 75 MLS/HR Vitamin B Complex/ Vit C/Folic Acid (Nephrovite Tablet) 1 cap DAILY PO 01/16/25 09:00 02/15/25 08:59 01/18/25 08:05 1 [facility] Diagnostics / Radiology: [COPY/PASTE HERE IF NO REPORTS PLEASE DELETE SECTION] Assessment: Melena Acute blood loss anemia CKD HTN Plan: [employer] January 19, 2025 07:43
[2025-01-19] MEDS ORDERED: REGADENOSON 0.4 MG/5 ML PF SYG IVP ONE (08:33)
--- NOTE | 2025-01-19 09:11 | HMCIMG ---
Exam Type: CHEST 2VWS Clinical Information: chf Comparison: None Findings: The lungs are clear of infiltrates. The heart is normal in size. The bony and soft tissue structures of the chest are unremarkable. Impression: Clear lungs.
--- NOTE | 2025-01-19 11:03 | PN ---
[facility] PROGRESS NOTE Date of Service: January 19, 2025 Time of Service: 10:57 SUBJECTIVE: Ms. Jesse Meza is a 49-year-old female that was seen and examined today on 01/15/2025. Patient came to the emergency department with a chief complaint of shortness of breath. Onset was four days ago. Location is to lungs. Character is described as, like I can not get enough air. Symptoms are aggravated with physical activity. There was no alleviating factors. Patient reports associated pedal edema. Today in the emergency department hemoglobin 6.8, hematocrit 21.5, creatinine 3.2, BUN 34, GFR 17, glucose 211 mg/dL, troponin 137.8, influenza negative, COVID negative, strep negative, BNP 2070, chest x-ray is pending radiology interpretation. Emergency room physician recommended patient be admitted with a diagnosis of anemia. 01/15: Patient seen and examined this morning at bedside. Chest x-ray positive for bilateral pleural effusions. Patient reports black, tarry stools. Hgb is 6.8 today, Hct 21.5. Gastroenterology was consulted for black, tarry stools. FOBT ordered and pending. Cardiology has been consulted. 2D echo results pending. Aspirin has been held. Protonix IV 40 mg added to medication regimen. Medications will be reconciled once available. 01/16: Patient was seen and examined this morning at bedside. Patients hgb today is 9.9, up from yesterdays 6.7. EGD done today, there was no evidence of an active bleed. Black tarry stools likely secondary to oral iron medication. Heparin drip started. 2D echocardiogram shows LVEF 48%, no RV strain, moderate pericardial effusion, early signs of tamponade. We will continue to follow cardiology recommendations. 01/17: Patient was seen and examined this morning at bedside. Hgb this morning was 7.7. Repeat hgb level was 8.2. Patient is currently being followed by Cardiology, GI, and nephrology. IVC filter placement ordered due to patients fluctuating hgb. 2D echo bedside limited study ordered to assess for cardiac tamponade. Patient is placed on NPO. 01/18/25: Lying in bed at the time of evaluation. Alert and oriented in no obvious distress. Patient is status post IVC placement 01/17/25. Patient's hemoglobin remained steady at 8.2 same as yesterday. Patient denies any chest pain, shortness of breath, or palpitations. Patient is being followed by Cardiology, GI and Nephrology. Seen by Cardiology today decided to start patient on Eliquis 5 mg b.i.d. Plan for possible discharge tomorrow. 01/19: Patient seen and and examined this morning at bedside. Patient is s/p IVC filter placement. Hemoglobin has been stable, at 8.2. Per cardiology recommendations, Eliquis has been restarted. Patients creatinine is trending up at 3.9, secondary to diabetic nephropathy. Further workup for patients heart failure has been ordered by cardiology, including a chest x-ray and NM stress test. We will continue to follow cardiology recommendations. REVIEW OF SYSTEMS CONSTITUTIONAL: Denies fevers, chills, or night sweats. No unintentional weight loss reported. NEUROLOGICAL: Denies headache, amaurosis fugax, motor weakness, sensory deficit, vertigo/spinning sensation, gait abnormalities, or tremors. ENT: No hearing loss, otalgia, otorrhea, rhinitis, rhinorrhea, hoarseness, or sore throat. CARDIOVASCULAR: Denies any exertional angina, dyspnea on exertion, orthopnea, paroxysmal nocturnal dyspnea, palpitations, life-threatening arrhythmias, claudication. PULMONARY: Denies any shortness of breath, cough, phlegm/sputum, hemoptysis, pleuritic chest pain. SLEEP: Denies morning headaches, daytime somnolence or napping. Denies difficulty falling asleep, staying asleep, waking from sleep. Denies knowledge of snoring. GASTROINTESTINAL: Denies any type of dysphagia to either liquids or solids. Denies nausea, vomiting, pyrosis, early satiety, abdominal pain, diarrhea, constipation, or changes in stool consistency or caliber. Denies coffee-ground emesis, hematemesis, hematochezia, or melanotic stools. GENITOURINARY: Denies frequency, urgency, nocturia, hematuria or incontinence (Storage/Irritative symptoms.) Low urinary stream, straining to void, urinary intermittency or hesitancy, splitting of the voiding stream, terminal dribbling. ENDOCRINOLOGIC: Denies polyuria, polydipsia, polyphagia or heat/cold intoleranc es. HEMATOLOGIC: Denies thrombophilia/previous clots, or coagulopathy/bleeding disorders. ONCOLOGIC: Denies personal history of malignancy. DERMATOLOGIC: Denies rashes or pruritus. PSYCHIATRIC: Denies any suicidal or homicidal ideation. Denies hallucinations. PHYSICAL EXAM GENERAL APPEARANCE: The patient is awake, alert, and oriented, in no acute cardiopulmonary distress. NEUROLOGICAL: Cranial nerves II-XII grossly intact. Motor is 5/5 in bilateral upper and lower extremities proximal to distal. No sensory deficits. HEENT: Face is symmetric. Pupils are equal and reactive. Extraocular movements are intact. NECK: Supple. No JVD. No thyromegaly. No submental, submandibular, pre- /postauricular, occipital or supraclavicular lymphadenopathy. CHEST: Normal chest expansion. No Telemetry. LUNGS: Absence of any rales, rhonchi or any wheezing. CARDIOVASCULAR: Regular. S1 and S2 normal. No appreciable rubs, murmurs or gallops. ABDOMEN: Soft, nontender, and nondistended. There is no rebound, voluntary guarding, or rigidity. : Deferred. No Buckner. EXTREMITIES: Non-edematous and not cyanotic. No clubbing. Good capillary refill. SKIN: No skin breakdown. Vital Signs (last 8hr) Date Time Temp Pulse Resp B/P (MAP) Pulse Ox O2 Delivery O2 Flow Rate FiO2 01/19/25 09:00 155/76 01/19/25 07:00 97.3 91 16 155/76 95 Room Air 01/19/25 04:12 98.2 83 18 145/72 98 Room Air LABS: Laboratory: Test 01/19/25 05:45 01/19/25 03:33 01/18/25 10:50 01/17/25 11:20 Range/Units Whole Blood Glucose 126 H 70-110 MG/DL White Blood Count 8.3 4.8-10.8 K/uL Red Blood Count 3.11 L 4.00-5.50 MIL/uL Hemoglobin 8.2 L 12.0-16.0 g/dL Hematocrit 26.6 L 36-48 % Mean Corpuscular Volume 85.5 79-99 fL Mean Corpuscular Hemoglobin 26.4 L 27.0-33.0 pg Mean Corpuscular Hemoglobin Concent 30.8 L 32.0-36.0 g/dL Red Cell Distribution Width 14.9 11.0-15.5 % Platelet Count 250 130-400 K/uL Mean Platelet Volume 10.5 7.5-10.5 fL Immature Granulocyte % (Auto) 0.7 0-1 % Neutrophils (%) (Auto) 72.4 40.0-77.0 % Lymphocytes (%) (Auto) 15.4 L 21.0-51.0 % Monocytes (%) (Auto) 8.9 3.0-13.0 % Eosinophils (%) (Auto) 2.4 0.0-8.0 % Basophils (%) (Auto) 0.2 0.0-5.0 % Neutrophils # (Auto) 6.0 1.8-7.7 K/uL Lymphocytes # (Auto) 1.3 1.0-4.8 K/uL Monocytes # (Auto) 0.7 0.1-1.0 K/uL Eosinophils # (Auto) 0.20 0.00-0.70 K/uL Basophils # (Auto) 0.02 0.00-0.20 K/uL Absolute Immature Granulocyte (auto 0.06 0-1 K/uL Nucleated Red Blood Cells 0.0 0.0-0.19 % Red Blood Cell Morphology See comments Sodium Level 135 L 136-145 mmol/L Potassium Level 4.2 3.5-5.1 mmol/L Chloride Level 101 101-111 mmol/L Carbon Dioxide Level 25 21-32 mmol/L Blood Urea Nitrogen 27 H 7-18 mg/dL Creatinine 3.9 H 0.5-1.0 mg/dL Glomerular Filtration Rate Calc 13 >90 mL/min Random Glucose 133 H 70-105 mg/dL Total Calcium 7.8 L 8.5-10.1 mg/dL Total Bilirubin 0.2 0.2-1.0 mg/dL Aspartate Amino Transf (AST/SGOT) 16 10-37 U/L Alanine Aminotransferase (ALT/SGPT) 9 L 12-78 U/L Alkaline Phosphatase 71 50-136 U/L Total Protein 5.1 L 6.0-8.3 g/dL Albumin 1.1 L 3.5-5.0 g/dL Bedside Glucose Comment Notified Nurse Activated Partial Thromboplast Time 43.9 #H 26.3-35.5 SEC Current Medications Medications (Trade) Dose Ordered Sig/Efraín Route PRN Reason Start Time Stop Time Status Last Admin Dose Admin Acetaminophen (TYLenol 325MG TAB) 650 mg Q6H PRN PO TEMPERATURE GREATER THAN 101.5 01/15/25 02:30 02/14/25 02:29 Apixaban (EliquIS) 5 mg BID PO 01/18/25 21:00 02/17/25 20:59 01/18/25 20:38 5 MG Aspirin (Aspirin 81mg Ec Tab) 81 mg DAILY PO 01/15/25 09:00 01/16/25 07:43 DC Carvedilol (Coreg 12.5MG) 12.5 mg BID PO 01/16/25 12:30 02/15/25 12:29 01/18/25 20:38 12.5 MG Guaifenesin/ Dextromethorphan (RobiTUSSin DM 200/20MG 10ML) 20 ml Q6H PRN PO COUGH 01/17/25 00:00 02/16/25 00:00 01/18/25 21:01 20 ML Heparin Sodium/ Dextrose 250 ml @ 0 mls/hr PROTOCOL IV 01/16/25 14:00 01/18/25 18:28 DC 01/16/25 18:17 12.29 MLS/HR Hydralazine HCl (APRESOLine 20MG INJ) 10 mg Q6H PRN IV For:SBP above 160;DBP above 90 01/15/25 02:30 02/14/25 02:29 01/16/25 09:49 10 MG Hydralazine HCl ([id number] TAB) 25 mg TID PO 01/16/25 12:30 02/15/25 12:29 01/18/25 20:38 25 MG Insulin Human Regular (humuLIN R 100 UNIT/ML 3ML) INSULIN SLIDING SCAL... ACHS SQ 01/15/25 07:30 02/14/25 07:29 01/18/25 12:28 6 UNIT Morphine Sulfate (morPHINE 2MG SYG) 2 mg Q4H PRN IVP SEVERE PAIN (7-10) 01/15/25 03:00 01/22/25 02:59 01/15/25 22:58 2 MG Nitroglycerin (Nitroglycerin 1gm Oint) 0.5 inch Q8H TD 01/15/25 02:30 02/14/25 02:29 01/19/25 03:17 0.5 INCH Ondansetron HCl (zoFRAN 4MG INJ) 4 mg Q6H PRN IV NAUSEA/VOMITING 01/15/25 02:30 02/14/25 02:29 Pantoprazole Sodium (PROTonix 40MG INJ) 40 mg BID IVP 01/15/25 21:00 02/14/25 20:59 01/18/25 20:37 40 MG Pantoprazole Sodium (PROTonix 40MG TAB) 40 mg DAILY PO 01/15/25 09:00 01/15/25 09:53 DC Sodium Chloride 1,000 ml @ 75 mls/hr [id number] IV 01/15/25 02:30 01/15/25 09:53 DC 01/15/25 02:45 75 MLS/HR Vitamin B Complex/ Vit C/Folic Acid (Nephrovite Tablet) 1 cap DAILY PO 01/16/25 09:00 02/15/25 08:59 01/18/25 08:05 1 [facility] DI[facility]NOSTICS / RADIOLOGY: [place] [address] IMAGING REPORT Signed PATIENT: YO ESCOBAR MR#: [id number] : 1975 SEX: F AGE: 49 LOCATION: 2AH ORDER 5 STATUS: ADM IN REPORT#: [id number] SERVICE 5 REASON: chf ORDERING PHYSICIAN: NIGHAT HOUSE MD PROCEDURE: CXR2VW - CHEST 2VWS Exam Type: CHEST 2VWS Clinical Information: chf Comparison: None Findings: The lungs are clear of infiltrates. The heart is normal in size. The bony and soft tissue structures of the chest are unremarkable. Impression: Clear lungs. 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 There is moderate pericardial effusion and early signs of tamponade. -V/Q scan to rule out PE- negative -Further tests ordered to evaluate cause of HF, including chest x-ray and NM stress test -We will continue to follow cardiology recommendations. JAMI on CKD -Cr: 3.9 trending up. -Renal ultrasound: Hyperechoic kidneys c/w renal parenchymal disease. -Urinalysis shows significant proteinuria -Urine protein-creatinine ratio- [id number] -avoid IV contrast -0.9% NS at 75 mL/HR IV fluid maintenance therapy -Avoid nephrotoxic agents when possible -Renally dose all medications when possible -Nephrology consulted, we will follow their recommendations Acute on chronic DVT -Start on Eliquis 5 mg b.i.d. -V/Q scan - negative for PE -status post IVC filter placement on 01/17/2025 Acute anemia: -hemoglobin remained stable at 8.2, same as yesterday -Iron panel ordered, follow up with results -Serum ferritin ordered, follow up with results -Transfuse if hgb < 7 mg/dL -EGD- no acute GI bleed seen Diabetes mellitus: -Insulin sliding scale -A1C: 11.9 -Monitor glucose levels. GI prophylaxis: Protonix IV ordered. DVT prophylaxis: Heparin This plan has been approved by my attending, Dr. Crowell. NOAH ELLSWORTH MD January 19, 2025 11:03
--- NOTE | 2025-01-19 11:48 | PN ---
NEPHROLOGY PROGRESS NOTE Date/Time Patient Seen: January 19, 2025 SUBJECTIVE: This is a 49-year-old female with a past medical history of chronic kidney disease, diabetes mellitus type 2, anemia, hypertension, hyperlipidemia. She presented to emergency room with complaints of shortness of breath. Other systemic review is unchanged. The patient remains weak. The patient has underlying shortness of breath, fluid overload. The patient has anemia. EGD has been done with no acute bleeding. There is a moderate pericardial effusion. S/p IVC filter on She was noted to have elevated BUN/creatinine. We has been consulted for renal failure. Renal ultrasound was noted. She was noted with significant proteinuria. Iron panel has been noted. She was seen in the medical floor, in no acute distress No family at the bedside Prognosis remains guarded REVIEW OF SYSTEMS: GENERAL: Negative for any nausea, vomiting, fevers, chills, or weight loss. NEUROLOGIC: Negative for any blurry vision, blind spots, double vision, facial asymmetry, dysphagia, dysarthria, hemiparesis, hemisensory deficits, vertigo, ataxia. HEENT: Negative for any head trauma, neck trauma, neck stiffness, photophobia, phonophobia, sinusitis, rhinitis. CARDIAC: Negative for any chest pain, dyspnea on exertion, paroxysmal nocturnal dyspnea, peripheral edema. PULMONARY: Negative for any shortness of breath, wheezing, COPD, or TB exposure. GASTROINTESTINAL: Negative for any abdominal pain, nausea, vomiting, bright red blood per rectum, melena. GENITOURINARY: Negative for any dysuria, hematuria, incontinence. INTEGUMENTARY: Negative for any rashes, cuts, insect bites. RHEUMATOLOGIC: Negative for any joint pains, photosensitive rashes, history of vasculitis or kidney problems. HEMATOLOGIC: Negative for any abnormal bruising, frequent infections or bleeding. Vital Signs (last 8hr) Date Time Temp Pulse Resp B/P (MAP) Pulse Ox O2 Delivery O2 Flow Rate FiO2 01/19/25 11:00 97.7 87 18 158/73 100 Room Air 01/19/25 09:00 155/76 01/19/25 07:00 97.3 91 16 155/76 95 Room Air 01/19/25 04:12 98.2 83 18 145/72 98 Room Air PHYSICAL EXAM: GENERAL: Alert and oriented x 3. No acute distress. Well-nourished. EYES: EOMI. Anicteric. HENT: Moist mucous membranes. No scleral icterus. No cervical lymphadenopathy. LUNGS: Clear to auscultation bilaterally. No accessory muscle use. CARDIOVASCULAR: Regular rate and rhythm. No murmur. No JVD. ABDOMEN: Soft, non-tender and non-distended. No palpable masses. EXTREMITIES: No edema. Non-tender.?SKIN: No rashes or lesions. Warm. NEUROLOGIC: No focal neurological deficits. CN II-XII grossly intact, but not individually tested. PSYCHIATRIC: Cooperative. Appropriate mood and affect. Current Medications Medications (Trade) Dose Ordered Sig/Efraín Route PRN Reason Start Time Stop Time Status Last Admin Dose Admin Acetaminophen (TYLenol 325MG TAB) 650 mg Q6H PRN PO TEMPERATURE GREATER THAN 101.5 01/15/25 02:30 02/14/25 02:29 Apixaban (EliquIS) 5 mg BID PO 01/18/25 21:00 02/17/25 20:59 01/18/25 20:38 5 MG Aspirin (Aspirin 81mg Ec Tab) 81 mg DAILY PO 01/15/25 09:00 01/16/25 07:43 DC Carvedilol (Coreg 12.5MG) 12.5 mg BID PO 01/16/25 12:30 02/15/25 12:29 01/18/25 20:38 12.5 MG Guaifenesin/ Dextromethorphan (RobiTUSSin DM 200/20MG 10ML) 20 ml Q6H PRN PO COUGH 01/17/25 00:00 02/16/25 00:00 01/18/25 21:01 20 ML Heparin Sodium/ Dextrose 250 ml @ 0 mls/hr PROTOCOL IV 01/16/25 14:00 01/18/25 18:28 DC 01/16/25 18:17 12.29 MLS/HR Hydralazine HCl (APRESOLine 20MG INJ) 10 mg Q6H PRN IV For:SBP above 160;DBP above 90 01/15/25 02:30 02/14/25 02:29 01/16/25 09:49 10 MG Hydralazine HCl ([id number] TAB) 25 mg TID PO 01/16/25 12:30 02/15/25 12:29 01/18/25 20:38 25 MG Insulin Human Regular (humuLIN R 100 UNIT/ML 3ML) INSULIN SLIDING SCAL... ACHS SQ 01/15/25 07:30 02/14/25 07:29 01/18/25 12:28 6 UNIT Morphine Sulfate (morPHINE 2MG SYG) 2 mg Q4H PRN IVP SEVERE PAIN (7-10) 01/15/25 03:00 01/22/25 02:59 01/15/25 22:58 2 MG Nitroglycerin (Nitroglycerin 1gm Oint) 0.5 inch Q8H TD 01/15/25 02:30 02/14/25 02:29 01/19/25 03:17 0.5 INCH Ondansetron HCl (zoFRAN 4MG INJ) 4 mg Q6H PRN IV NAUSEA/VOMITING 01/15/25 02:30 02/14/25 02:29 Pantoprazole Sodium (PROTonix 40MG INJ) 40 mg BID IVP 01/15/25 21:00 02/14/25 20:59 01/18/25 20:37 40 MG Pantoprazole Sodium (PROTonix 40MG TAB) 40 mg DAILY PO 01/15/25 09:00 01/15/25 09:53 DC Sodium Chloride 1,000 ml @ 75 mls/hr [id number] IV 01/15/25 02:30 01/15/25 09:53 DC 01/15/25 02:45 75 MLS/HR Vitamin B Complex/ Vit C/Folic Acid (Nephrovite Tablet) 1 cap DAILY PO 01/16/25 09:00 02/15/25 08:59 01/18/25 08:05 1 CAP LABORATORY: [ ] Hematology Labs: Test 01/19/25 03:33 Range/Units White Blood Count 8.3 4.8-10.8 K/uL Red Blood Count 3.11 L 4.00-5.50 MIL/uL Hemoglobin 8.2 L 12.0-16.0 g/dL Hematocrit 26.6 L 36-48 % Mean Corpuscular Volume 85.5 79-99 fL Mean Corpuscular Hemoglobin 26.4 L 27.0-33.0 pg Mean Corpuscular Hemoglobin Concent 30.8 L 32.0-36.0 g/dL Red Cell Distribution Width 14.9 11.0-15.5 % Platelet Count 250 130-400 K/uL Mean Platelet Volume 10.5 7.5-10.5 fL Immature Granulocyte % (Auto) 0.7 0-1 % Neutrophils (%) (Auto) 72.4 40.0-77.0 % Lymphocytes (%) (Auto) 15.4 L 21.0-51.0 % Monocytes (%) (Auto) 8.9 3.0-13.0 % Eosinophils (%) (Auto) 2.4 0.0-8.0 % Basophils (%) (Auto) 0.2 0.0-5.0 % Neutrophils # (Auto) 6.0 1.8-7.7 K/uL Lymphocytes # (Auto) 1.3 1.0-4.8 K/uL Monocytes # (Auto) 0.7 0.1-1.0 K/uL Eosinophils # (Auto) 0.20 0.00-0.70 K/uL Basophils # (Auto) 0.02 0.00-0.20 K/uL Absolute Immature Granulocyte (auto 0.06 0-1 K/uL Nucleated Red Blood Cells 0.0 0.0-0.19 % Red Blood Cell Morphology See comments Chemistry Labs: Test 01/19/25 11:17 01/19/25 03:33 Range/Units Whole Blood Glucose 187 H 70-110 MG/DL Bedside Glucose Comment Notified Nurse Sodium Level 135 L 136-145 mmol/L Potassium Level 4.2 3.5-5.1 mmol/L Chloride Level 101 101-111 mmol/L Carbon Dioxide Level 25 21-32 mmol/L Blood Urea Nitrogen 27 H 7-18 mg/dL Creatinine 3.9 H 0.5-1.0 mg/dL Glomerular Filtration Rate Calc 13 >90 mL/min Random Glucose 133 H 70-105 mg/dL Total Calcium 7.8 L 8.5-10.1 mg/dL Total Bilirubin 0.2 0.2-1.0 mg/dL Aspartate Amino Transf (AST/SGOT) 16 10-37 U/L Alanine Aminotransferase (ALT/SGPT) 9 L 12-78 U/L Alkaline Phosphatase 71 50-136 U/L Total Protein 5.1 L 6.0-8.3 g/dL Albumin 1.1 L 3.5-5.0 g/dL DIAGNOSTICS / RADIOLOGY: REASON: chf ORDERING PHYSICIAN: NIGHAT HOUSE MD PROCEDURE: CXR2VW - CHEST 2VWS Exam Type: CHEST 2VWS Clinical Information: chf Comparison: None Findings: The lungs are clear of infiltrates. The heart is normal in size. The bony and soft tissue structures of the chest are unremarkable. Impression: Clear lungs. DICTATED BY: KALEE LEVI MD DATE: 01/19/25 0909 REASON: dvt ORDERING PHYSICIAN: WILMER SRIVASTAVA MD PROCEDURE: CATH PROC - CUSHION PADDER PROCEDURE REQUEST CLINICAL INDICATION: DVT. INDICATION: GI bleed, DVT.. HUNTING SALES ASSOCIATE: Dr. Turner TECHNIQUE: Informed consent was obtained after explaining the procedure and potential complications. Patient was placed supine on the angio table and timeout performed. All elements of maximal sterile barrier technique, including hand hygiene and cutaneous antisepsis were used. Right side of the neck was prepped and draped in standard sterile fashion. Local anesthesia was applied and under ultrasound guidance, access was gained into the right internal jugular vein with a 21G needle. Under fluoroscopic guidance, a wire and sheath were advanced down into the inferior vena cava. IVC gram performed. Then, a Option filter was deployed in the infrarenal IVC. Final images revealed filter apex at the level of the pedicle of L2. The sheath was removed and hemostasis was achieved at the entry site with manual compression. Sterile dressing was applied. Contrast: 40 mL Omnipaque IV Fluoro: 0.8 min. Blood loss: < 5 mL Complications: None. IMPRESSION: Successful infrarenal placement of retrievable inferior vena cava filter. Filter retrieval should be attempted in 2-3 months, if filter is no longer needed. The head of the bed should be elevated at 45 degrees for 3 hours. DICTATED BY: IRVING TURNER DO DATE: 01/17/25 1331 REASON: Bedside limited echo to assess for cardiac tamponade ORDERING PHYSICIAN: NOAH ELLSWORTH MD PROCEDURE: ECHO FU LD - ECHO 2-D F/U-LTD APPROVED REPORT EXAM: Two-dimensional and M-mode echocardiogram with Doppler and color Doppler. Study Details: HTN , HLD , Diabts M , CKD INDICATION ICD: bedside limited echo to asses 2D Dimensions LVOT diam 1.9 (1.8-2.4cm) Mitral Valve MV E Vmax 120.9 cm/s DECEL Time 206 ms MV A Vmax 116.9 cm/s E/A ratio 1.0 TDI E/E' Medial 23.1 E/E' Lateral 17.1 Medial E' Peak V 5.24 cm/s Lateral E' Peak V 7.09 cm/s Left Ventricle Left ventricular cavity size is normal. LVEF is 45-50%. Stage II, diastolic dysfunction. Right Ventricle The right ventricle is normal size. The right ventricular systolic function is normal. Aortic Valve There is no aortic valvular stenosis. Mitral Valve There is no mitral valve stenosis. Pericardium Moderate pericardial effusion. Ascites is present. Conclusion This is a limited follow up echo. Left ventricular cavity size is normal. LVEF is 45-50%. Stage II, diastolic dysfunction. The right ventricle is normal size. The right ventricular systolic function is normal. Moderate pericardial effusion. DICTATED BY: INNA FLORES MD DATE: 01/17/25 1429 REASON: SHORTNESS OF BREATH ORDERING PHYSICIAN: WILMER SRIVASTAVA MD PROCEDURE: PULM VQ - NM PULMONARY/LUNG VQ SCAN Exam Type: NM PULMONARY/LUNG VQ SCAN Clinical Information: SHORTNESS OF BREATH Comparison: None Findings: Anterior and posterior pulmonary ventilation scan was performed during and following inhalation of 6.8 mCi of xenon-133 gas and pulmonary perfusion images were performed following intravenous injection of Tc-labeled MAA. Ventilation: homogeneous distribution of the xenon gas in both lungs during the single breath and equilibrium phases. Symmetrical clearance of the xenon gas demonstrated in the wash out phase. No evidence of air trapping. Perfusion: homogeneous distribution of the radiolabeled particles in both lungs with normal hilar and cardiac attenuation defect. No wedge shaped or focal perfusion defects are seen. Impression: No evidence of pulmonary embolism. DICTATED BY: KALEE LEVI MD DATE: 01/16/25 1533 REASON: SHORTNES OF BREATH ORDERING PHYSICIAN: WILMER SRIVASTAVA MD PROCEDURE: CXR1VW - CHEST 1VW Exam Type: CHEST 1VW Clinical Information: SHORTNES OF BREATH Comparison: None Findings: The lungs are clear of infiltrates. The heart is enlarged. Bony and soft tissue structures of the chest wall are unremarkable. IMPRESSION: Cardiomegaly. Clear lungs. DICTATED BY: KALEE LEVI MD DATE: 01/16/25 1438 REASON: kidney failure ORDERING PHYSICIAN: DIVYA MORATAYA MD PROCEDURE: RENAL - US RENAL SONOGRAM Exam Type: US RENAL SONOGRAM Clinical Information: kidney failure Comparison: None Findings: The kidneys are hyperechoic consistent with renal parenchymal disease. There are no calculi. No hydronephrosis or calculi are seen. No renal masses are seen. There is no evidence of perinephric fluid on either side. No evidence of significant ureteral dilatation is seen. The right kidney measures 10.9 x 5 cm. The left kidney measures 10.3 x 4.9 cm. The urinary bladder is normal. No bladder masses, stones, or wall thickening is seen. IMPRESSION: Hyperechoic kidneys consistent with renal parenchymal disease. DICTATED BY: KALEE LEVI MD DATE: 01/15/25 8635 REASON: r/o DVT ORDERING PHYSICIAN: WILMER SRIVASTAVA MD PROCEDURE: VENOUS ERROL - US VENOUS DOPPLER BILATERAL Exam Type: US VENOUS DOPPLER BILATERAL Clinical Information: r/o DVT Comparison: None Findings: The examination shows nonocclusive thrombosis of the superficial femoral vein and partially of the popliteal vein as well The rest of the venous structures evaluated shows no evidence of thrombosis. IMPRESSION: Thrombus as noted. DICTATED BY: KALEE LEVI MD DATE: 01/15/25 1606 REASON: elevated bnp ORDERING PHYSICIAN: DAVY SWAN PROCEDURE: ECHO CMP - ECHO 2-D COMPLETE APPROVED REPORT EXAM: Two-dimensional and M-mode echocardiogram with Doppler and color Doppler. INDICATION ICD: elevated bnp 2D Dimensions RVDd 3.2 cm LVEF(%) 45.6 (>50%) LVED Vol(simp.) 84.0 mL IVSd 0.9 (0.7-1.1cm) FS(%) 22 % LVES Vol(simp.) 43.0 mL LVDd 4.3 (3.8-5.6cm) LA (2D) 4.5 (1.6-4.0cm) LVEF(%, simp.) 48 % PWd 1.2 (0.7-1.1cm) Ao Root(2D) 2.6 (2.0-3.7cm) LA ESV INDEX (BP) 44.46 mL/m2 LVDs 3.4 (2.5-4.0cm) LVOT diam 1.9 (1.8-2.4cm) IVC diam 2.0 cm Deformation Strain Apical 4 -13.9 % Apical 2 -14.6 % Apical 3 -11.5 % Global Strain -13.3 % M-Mode Dimensions EPSS 1.1 cm LA (MM) 4.5 (1.6-4.0cm) Ao Root(MM) 2.7 (2.0-3.7cm) Aortic Valve AoV Vmax 1.1 m/s Ao Peak GR 5.0 mmHg LVOT Vmax 0.9 m/s AoV VTI 0.2 m Ao Mean GR 3.0 mmHg LVOT VTI 0.20 m JES (VMAX) 2.48 cm2 JES (VTI) 2.5 cm2 Mitral Valve MV E Vmax 124.8 cm/s DECEL Time 120 ms MV A Vmax 143.2 cm/s P 1/2 T 27 ms E/A ratio 0.9 MVA (PHT) 8.0 cm2 TDI E/E' Medial 62.4 E/E' Lateral 60.9 Medial E' Peak V 2.00 cm/s Lateral E' Peak V 2.05 cm/s Pulmonary Valve PV Vmax 1.1 m/s PV VTI 0.20 m PV Mean GR 2.3 mmHg PV Peak GR 4.5 mmHg Tricuspid Valve TR Vmax 3.1 m/s RAP (EST) 3 mmHg RVSP 42.0 mmHg TR Peak GR 39.0 mmHg Left Ventricle The left ventricle is normal size. Mild global hypokinesia. Mild concentric left ventricular hypertrophy. LVEF is 48%. Stage I diastolic dysfunction with markedly elevated mean LV filling pressure. Right Ventricle The right ventricle is normal size; no RV strain noted. The right ventricular systolic function is normal. Atria The left atrium size is mildly-moderately dilated with FAN 42ml/m. The right atrium size is normal. Aortic Valve The aortic valve is normal in structure. No aortic regurgitation is present. There is no aortic valvular stenosis. Mitral Valve The mitral valve is normal in structure. Mitral regurgitation is mild. There is no mitral valve stenosis. Tricuspid Valve The tricuspid valve is normal in structure. There is mild tricuspid valve regurgitation noted. Pulmonic Valve The pulmonary valve is normal in structure. There is trace pulmonic valvular regurgitation. Mild pumonary hypertension. Great Vessels The aortic root is normal in size. The IVC is borderline in size and collapses >50% with inspiration. Pericardium There is moderate pericardial effusion with early signs of tamponade: 1. I/E mitral flow velocity ratio 1.22 2. RA invagination 37% of cardiac cycle. Conclusion LVEF is 48%. Stage I diastolic dysfunction with markedly elevated mean LV filling pressure. The right ventricle is normal size; no RV strain noted. The left atrium size is mildly-moderately dilated with FAN 42ml/m. Mild pumonary hypertension. There is moderate pericardial effusion with early signs of tamponade: 1. I/E mitral flow velocity ratio 1.22 2. RA invagination 37% of cardiac cycle. DICTATED BY: NIGHAT HOUSE MD DATE: 01/15/25 0755 REASON: cough ORDERING PHYSICIAN: BART ECHAVARRIA PROCEDURE: CXR1VW - CHEST 1VW Exam Type: CHEST 1VW Clinical Information: cough Comparison: None Findings: Small bilateral pleural effusions. The lungs are clear of infiltrates. The heart is enlarged. Bony and soft tissue structures of the chest wall are unremarkable. IMPRESSION: Cardiomegaly. Small bilateral pleural effusions. 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 We have reviewed external records in detail He will start Venofer 200 mg IV q.day x2 doses for anemia Start Epogen 60443 units subQ weekly, 1st dose now Require close monitoring of renal function and electrolytes Order CBC, CMP, and electrolytes in am Renal diabetic diet BiPAP as necessary, for respiratory distress Monitor blood pressure adjust medication doses as needed Avoid hypotensive episodes May use Dilaudid 0.5 mg IV every 6 hours as needed for severe pain Monitor blood sugars Strict intake, output, and daily weight should be monitored Please renally adjust medications Avoid nephrotoxic and nonsteroidal drugs Avoid contrast if possible Will continue to monitor renal function, anemia, electrolytes Treatment plan discussed with patient Questions were answered We have discussed with the other team physicians in detail about the care plan We will continue to monitor the patient closely ATTESTATION BY PHYSICIAN I have seen and examined the patient. I reviewed the documentation, medical decision making, and treatment plan as noted by the mid-level provider above. I agree with the findings and plan of care. DIYVA MORATAYA MD, [facility] January 19, 2025 11:48
[2025-01-19] MEDS ORDERED: IRON sUCROse COMPLEX 300 MG in 0.9% NACL 250ML 250 ML IV SCH (17:00)
[2025-01-19] MEDS: EPOETIN ALFA-EPBX (NON-ESRD) 10,000 UNIT/ML VIAL SQ SCH (17:28)
[2025-01-19] MEDS: LOPERAMIDE HCL 2 MG CAP PO SCH (17:28)
[2025-01-19] MEDS: IRON sUCROse COMPLEX 300 MG in 0.9% NACL 250ML 250 ML IV SCH (22:19)
[2025-01-20] VITALS (8 sets, daily range): BP systolic 130–154; BP diastolic 68–77; PULSE 86–90; RESP 16–20; TEMP 97.9–98.3; O2SAT 98–100
[2025-01-20 03:58] LABS: HEMATOCRIT 25.3 % (36-48); MEAN CORPUSCULAR HEMOGLOBIN 26.4 pg (27.0-33.0); MEAN CORPUSCULAR HGB CONC 31.6 g/dL (32.0-36.0); MEAN CORPUSCULAR VOLUME 83.5 fL (79-99); RED BLOOD CELL COUNT(AUTO) 3.03 MIL/uL (4.00-5.50); RED CELL DISTRIBUTION WIDTH 14.6 % (11.0-15.5); WHITE BLOOD COUNT (AUTO) 7.2 K/uL (4.8-10.8)
[2025-01-20 04:20] LABS: ALBUMIN 1.1 g/dL (3.5-5.0); BILIRUBIN,TOTAL 0.2 mg/dL (0.2-1.0); CREATININE 4.1 mg/dL (0.5-1.0); MAGNESIUM 1.6 mg/dL (1.80-2.40); TOTAL PROTEIN, SERUM 4.8 g/dL (6.0-8.3)
--- NOTE | 2025-01-20 07:29 | PN ---
GASTROENTEROLOGY PROGRESS NOTE Date of Visit: January 20, 2025 Time of Visit: 07:28 Events / Notes: [ ] Review of Systems: CONSTITUTIONAL: No malaise or change in sensation of wellbeing. ENMT: No rhinorrhea, otorrhea, sinus pain, ear ache. CARDIOVASCULAR: No angina, palpitations, orthopnea or paroxysmal dyspnea. RESPIRATORY: No SOB. GASTROINTESTINAL: No abdominal pain, nausea, vomiting, diarrhea, hematemesis, melena or change in the patient's habitual bowel movements consistency/number. GENITOURINARY: No dysuria, hematuria or change in bladder continence. MUSCULOSKELETAL: No new muscle pain or decrease in muscular strength. No new joint swelling, redness or tenderness. SKIN: No new rash. Physical Exam: GEN: Awake, alert, oriented in person, time and place, and in no acute distress. HEENT: No sinus tenderness. Tympanic membranes were not examined. No rhinorrhea. Oral pharyngeal mucosa is pink, moist and within normal limits. Neck is supple with no cervical lymphadenopathy, thyromegaly or JVD. CHEST: Inspection, palpation and percussion of the chest were unremarkable. Lung auscultation revealed normal breath sounds bilaterally. CARDIAC: PMI is within normal limits. Heart sounds are regular. Normal S1, S2. No gallop or murmur. ABD: Soft, non-tender and not distended. No peritoneal signs on palpation. No organomegaly. Normal bowel sounds. EXT: No cyanosis or clubbing. No edema. SKIN: Intact. No rashes. JOINTS: No evidence of synovitis or acute arthritis. NEURO: Alert and oriented to name, place and person. Cranial nerve examination is unremarkable. No focal motor deficits. Normal speech. Gait is normal. Strength is normal. Vital Signs (last 8hr) Date Time Temp Pulse Resp B/P (MAP) Pulse Ox O2 Delivery O2 Flow Rate FiO2 01/20/25 03:55 97.9 90 20 140/77 97 Room Air 01/20/25 01:00 98.1 88 18 130/68 95 Room Air Laboratory: [ ] Laboratory: Test 01/20/25 06:14 01/20/25 03:43 01/19/25 18:21 01/19/25 16:06 Range/Units Whole Blood Glucose 123 H 70-110 MG/DL White Blood Count 7.2 4.8-10.8 K/uL Red Blood Count 3.03 L 4.00-5.50 MIL/uL Hemoglobin 8.0 L 12.0-16.0 g/dL Hematocrit 25.3 L 36-48 % Mean Corpuscular Volume 83.5 79-99 fL Mean Corpuscular Hemoglobin 26.4 L 27.0-33.0 pg Mean Corpuscular Hemoglobin Concent 31.6 L 32.0-36.0 g/dL Red Cell Distribution Width 14.6 11.0-15.5 % Platelet Count 251 130-400 K/uL Mean Platelet Volume 11.1 H 7.5-10.5 fL Nucleated Red Blood Cells 0.0 0.0-0.19 % Sodium Level 136 136-145 mmol/L Potassium Level 4.0 3.5-5.1 mmol/L Chloride Level 103 101-111 mmol/L Carbon Dioxide Level 24 21-32 mmol/L Blood Urea Nitrogen 24 H 7-18 mg/dL Creatinine 4.1 H 0.5-1.0 mg/dL Glomerular Filtration Rate Calc 13 >90 mL/min Random Glucose 118 H 70-105 mg/dL Total Calcium 7.1 L 8.5-10.1 mg/dL Magnesium Level 1.60 L 1.80-2.40 mg/dL Total Bilirubin 0.2 0.2-1.0 mg/dL Aspartate Amino Transf (AST/SGOT) 16 10-37 U/L Alanine Aminotransferase (ALT/SGPT) 9 L 12-78 U/L Alkaline Phosphatase 64 50-136 U/L Total Protein 4.8 L 6.0-8.3 g/dL Albumin 1.1 L 3.5-5.0 g/dL C. difficile Antigen and Toxins A,B See comments NEG Bedside Glucose Comment Notified Nurse Test 01/19/25 03:33 Range/Units Immature Granulocyte % (Auto) 0.7 0-1 % Neutrophils (%) (Auto) 72.4 40.0-77.0 % Lymphocytes (%) (Auto) 15.4 L 21.0-51.0 % Monocytes (%) (Auto) 8.9 3.0-13.0 % Eosinophils (%) (Auto) 2.4 0.0-8.0 % Basophils (%) (Auto) 0.2 0.0-5.0 % Neutrophils # (Auto) 6.0 1.8-7.7 K/uL Lymphocytes # (Auto) 1.3 1.0-4.8 K/uL Monocytes # (Auto) 0.7 0.1-1.0 K/uL Eosinophils # (Auto) 0.20 0.00-0.70 K/uL Basophils # (Auto) 0.02 0.00-0.20 K/uL Absolute Immature Granulocyte (auto 0.06 0-1 K/uL Red Blood Cell Morphology See comments Current Medications Medications (Trade) Dose Ordered Sig/Efraín Route PRN Reason Start Time Stop Time Status Last Admin Dose Admin Acetaminophen (TYLenol 325MG TAB) 650 mg Q6H PRN PO TEMPERATURE GREATER THAN 101.5 01/15/25 02:30 02/14/25 02:29 Apixaban (EliquIS) 5 mg BID PO 01/18/25 21:00 02/17/25 20:59 01/19/25 21:12 5 MG Aspirin (Aspirin 81mg Ec Tab) 81 mg DAILY PO 01/15/25 09:00 01/16/25 07:43 DC Carvedilol (Coreg 12.5MG) 12.5 mg BID PO 01/16/25 12:30 02/15/25 12:29 01/19/25 21:12 12.5 MG Epoetin Zach-epbx (Retacrit) 10,000 unit QMO@1700 SQ 01/19/25 17:00 02/18/25 16:59 01/19/25 17:28 10,000 UNIT Guaifenesin/ Dextromethorphan (RobiTUSSin DM 200/20MG 10ML) 20 ml Q6H PRN PO COUGH 01/17/25 00:00 02/16/25 00:00 01/18/25 21:01 20 ML Heparin Sodium/ Dextrose 250 ml @ 0 mls/hr PROTOCOL IV 01/16/25 14:00 01/18/25 18:28 DC 01/16/25 18:17 12.29 MLS/HR Hydralazine HCl (APRESOLine 20MG INJ) 10 mg Q6H PRN IV For:SBP above 160;DBP above 90 01/15/25 02:30 02/14/25 02:29 01/16/25 09:49 10 MG Hydralazine HCl ([id number] TAB) 25 mg TID PO 01/16/25 12:30 02/15/25 12:29 01/19/25 21:12 25 MG Insulin Human Regular (humuLIN R 100 UNIT/ML 3ML) INSULIN SLIDING SCAL... ACHS SQ 01/15/25 07:30 02/14/25 07:29 01/19/25 17:04 6 UNIT Iron Sucrose 300 mg/Sodium Chloride 250 ml @ 83 mls/hr AD IV 01/19/25 17:00 01/19/25 19:07 DC Iron Sucrose 300 mg/Sodium Chloride 250 ml @ 83 mls/hr DAILY22 IV 01/19/25 22:00 01/21/25 01:01 01/19/25 22:19 83 MLS/HR Loperamide HCl (Imodium) 2 mg ONCE PO 01/19/25 17:30 01/19/25 21:30 DC 01/19/25 17:28 2 MG Morphine Sulfate (morPHINE 2MG SYG) 2 mg Q4H PRN IVP SEVERE PAIN (7-10) 01/15/25 03:00 01/20/25 05:59 DC 01/15/25 22:58 2 MG Nitroglycerin (Nitroglycerin 1gm Oint) 0.5 inch Q8H TD 01/15/25 02:30 02/14/25 02:29 01/20/25 02:48 0.5 INCH Ondansetron HCl (zoFRAN 4MG INJ) 4 mg Q6H PRN IV NAUSEA/VOMITING 01/15/25 02:30 02/14/25 02:29 Pantoprazole Sodium (PROTonix 40MG INJ) 40 mg BID IVP 01/15/25 21:00 02/14/25 20:59 01/19/25 21:11 40 MG Pantoprazole Sodium (PROTonix 40MG TAB) 40 mg DAILY PO 01/15/25 09:00 01/15/25 09:53 DC Sodium Chloride 1,000 ml @ 75 mls/hr [id number] IV 01/15/25 02:30 01/15/25 09:53 DC 01/15/25 02:45 75 MLS/HR Vitamin B Complex/ Vit C/Folic Acid (Nephrovite Tablet) 1 cap DAILY PO 01/16/25 09:00 02/15/25 08:59 01/19/25 13:32 1 CAP Diagnostics / Radiology: [COPY/PASTE HERE IF NO REPORTS PLEASE DELETE SECTION] Assessment: Melena Acute blood loss anemia CKD HTN Plan: [place] [employer] January 20, 2025 07:28
--- NOTE | 2025-01-20 10:08 | PN ---
[facility] PROGRESS NOTE Date of Service: January 20, 2025 Time of Service: 10:08 SUBJECTIVE: Ms. Jesse Meza is a 49-year-old female that was seen and examined today on 01/15/2025. Patient came to the emergency department with a chief complaint of shortness of breath. Onset was four days ago. Location is to lungs. Character is described as, like I can not get enough air. Symptoms are aggravated with physical activity. There was no alleviating factors. Patient reports associated pedal edema. Today in the emergency department hemoglobin 6.8, hematocrit 21.5, creatinine 3.2, BUN 34, GFR 17, glucose 211 mg/dL, troponin 137.8, influenza negative, COVID negative, strep negative, BNP 2070, chest x-ray is pending radiology interpretation. Emergency room physician recommended patient be admitted with a diagnosis of anemia. 01/15: Patient seen and examined this morning at bedside. Chest x-ray positive for bilateral pleural effusions. Patient reports black, tarry stools. Hgb is 6.8 today, Hct 21.5. Gastroenterology was consulted for black, tarry stools. FOBT ordered and pending. Cardiology has been consulted. 2D echo results pending. Aspirin has been held. Protonix IV 40 mg added to medication regimen. Medications will be reconciled once available. 01/16: Patient was seen and examined this morning at bedside. Patients hgb today is 9.9, up from yesterdays 6.7. EGD done today, there was no evidence of an active bleed. Black tarry stools likely secondary to oral iron medication. Heparin drip started. 2D echocardiogram shows LVEF 48%, no RV strain, moderate pericardial effusion, early signs of tamponade. We will continue to follow cardiology recommendations. 01/17: Patient was seen and examined this morning at bedside. Hgb this morning was 7.7. Repeat hgb level was 8.2. Patient is currently being followed by Cardiology, GI, and nephrology. IVC filter placement ordered due to patients fluctuating hgb. 2D echo bedside limited study ordered to assess for cardiac tamponade. Patient is placed on NPO. 01/18/25: Lying in bed at the time of evaluation. Alert and oriented in no obvious distress. Patient is status post IVC placement 01/17/25. Patient's hemoglobin remained steady at 8.2 same as yesterday. Patient denies any chest pain, shortness of breath, or palpitations. Patient is being followed by Cardiology, GI and Nephrology. Seen by Cardiology today decided to start patient on Eliquis 5 mg b.i.d. Plan for possible discharge tomorrow. 01/19: Patient seen and and examined this morning at bedside. Patient is s/p IVC filter placement. Hemoglobin has been stable, at 8.2. Per cardiology recommendations, Eliquis has been restarted. Patients creatinine is trending up at 3.9, secondary to diabetic nephropathy. Further workup for patients heart failure has been ordered by cardiology, including a chest x-ray and NM stress test. We will continue to follow cardiology recommendations. 01/20: Patient was seen and examined this morning at bedside. Patient is s/p IVC filter placement. Hemoglobin has been stable. Patient complains of episodes of watery diarrhea. C. diff ordered and was negative. GI stool PCR ordered and pending. Imodium has been ordered for patient's diarrhea. Patient's diet has been advanced to a heart healthy diet. We will replace magnesium IV due to patients loose stools. Pending stress test results for further recommendations by cardiology. REVIEW OF SYSTEMS CONSTITUTIONAL: Denies fevers, chills, or night sweats. No unintentional weight loss reported. NEUROLOGICAL: Denies headache, amaurosis fugax, motor weakness, sensory deficit, vertigo/spinning sensation, gait abnormalities, or tremors. ENT: No hearing loss, otalgia, otorrhea, rhinitis, rhinorrhea, hoarseness, or sore throat. CARDIOVASCULAR: Denies any exertional angina, dyspnea on exertion, orthopnea, paroxysmal nocturnal dyspnea, palpitations, life-threatening arrhythmias, claudication. PULMONARY: Denies any shortness of breath, cough, phlegm/sputum, hemoptysis, pleuritic chest pain. SLEEP: Denies morning headaches, daytime somnolence or napping. Denies difficulty falling asleep, staying asleep, waking from sleep. Denies knowledge of snoring. GASTROINTESTINAL: Denies any type of dysphagia to either liquids or solids. Denies nausea, vomiting, pyrosis, early satiety, abdominal pain, diarrhea, constipation, or changes in stool consistency or caliber. Denies coffee-ground emesis, hematemesis, hematochezia, or melanotic stools. GENITOURINARY: Denies frequency, urgency, nocturia, hematuria or incontinence (Storage/Irritative symptoms.) Low urinary stream, straining to void, urinary intermittency or hesitancy, splitting of the voiding stream, terminal dribbling. ENDOCRINOLOGIC: Denies polyuria, polydipsia, polyphagia or heat/cold intolerances. HEMATOLOGIC: Denies thrombophilia/previous clots, or coagulopathy/bleeding disorders. ONCOLOGIC: Denies personal history of malignancy. DERMATOLOGIC: Denies rashes or pruritus. PSYCHIATRIC: Denies any suicidal or homicidal ideation. Denies hallucinations. PHYSICAL EXAM GENERAL APPEARANCE: The patient is awake, alert, and oriented, in no acute cardiopulmonary distress. NEUROLOGICAL: Cranial nerves II-XII grossly intact. Motor is 5/5 in bilateral upper and lower extremities proximal to distal. No sensory deficits. HEENT: Face is symmetric. Pupils are equal and reactive. Extraocular movements are intact. NECK: Supple. No JVD. No thyromegaly. No submental, submandibular, pre- /postauricular, occipital or supraclavicular lymphadenopathy. CHEST: Normal chest expansion. No Telemetry. LUNGS: Absence of any rales, rhonchi or any wheezing. CARDIOVASCULAR: Regular. S1 and S2 normal. No appreciable rubs, murmurs or gallops. ABDOMEN: Soft, nontender, and nondistended. There is no rebound, voluntary guarding, or rigidity. : Deferred. No Buckner. EXTREMITIES: Non-edematous and not cyanotic. No clubbing. Good capillary refill. SKIN: No skin breakdown. Vital Signs (last 8hr) Date Time Temp Pulse Resp B/P (MAP) Pulse Ox O2 Delivery O2 Flow Rate FiO2 01/20/25 09:36 154/74 01/20/25 08:18 98.2 88 16 154/74 95 Room Air 01/20/25 03:55 97.9 90 20 140/77 97 Room Air LABS: Laboratory: Test 01/20/25 06:14 01/20/25 03:43 01/19/25 18:21 01/19/25 16:06 Range/Units Whole Blood Glucose 123 H 70-110 MG/DL White Blood Count 7.2 4.8-10.8 K/uL Red Blood Count 3.03 L 4.00-5.50 MIL/uL Hemoglobin 8.0 L 12.0-16.0 g/dL Hematocrit 25.3 L 36-48 % Mean Corpuscular Volume 83.5 79-99 fL Mean Corpuscular Hemoglobin 26.4 L 27.0-33.0 pg Mean Corpuscular Hemoglobin Concent 31.6 L 32.0-36.0 g/dL Red Cell Distribution Width 14.6 11.0-15.5 % Platelet Count 251 130-400 K/uL Mean Platelet Volume 11.1 H 7.5-10.5 fL Nucleated Red Blood Cells 0.0 0.0-0.19 % Sodium Level 136 136-145 mmol/L Potassium Level 4.0 3.5-5.1 mmol/L Chloride Level 103 101-111 mmol/L Carbon Dioxide Level 24 21-32 mmol/L Blood Urea Nitrogen 24 H 7-18 mg/dL Creatinine 4.1 H 0.5-1.0 mg/dL Glomerular Filtration Rate Calc 13 >90 mL/min Random Glucose 118 H 70-105 mg/dL Total Calcium 7.1 L 8.5-10.1 mg/dL Magnesium Level 1.60 L 1.80-2.40 mg/dL Total Bilirubin 0.2 0.2-1.0 mg/dL Aspartate Amino Transf (AST/SGOT) 16 10-37 U/L Alanine Aminotransferase (ALT/SGPT) 9 L 12-78 U/L Alkaline Phosphatase 64 50-136 U/L Total Protein 4.8 L 6.0-8.3 g/dL Albumin 1.1 L 3.5-5.0 g/dL C. difficile Antigen and Toxins A,B See comments NEG Bedside Glucose Comment Notified Nurse Test 01/19/25 03:33 Range/Units Immature Granulocyte % (Auto) 0.7 0-1 % Neutrophils (%) (Auto) 72.4 40.0-77.0 % Lymphocytes (%) (Auto) 15.4 L 21.0-51.0 % Monocytes (%) (Auto) 8.9 3.0-13.0 % Eosinophils (%) (Auto) 2.4 0.0-8.0 % Basophils (%) (Auto) 0.2 0.0-5.0 % Neutrophils # (Auto) 6.0 1.8-7.7 K/uL Lymphocytes # (Auto) 1.3 1.0-4.8 K/uL Monocytes # (Auto) 0.7 0.1-1.0 K/uL Eosinophils # (Auto) 0.20 0.00-0.70 K/uL Basophils # (Auto) 0.02 0.00-0.20 K/uL Absolute Immature Granulocyte (auto 0.06 0-1 K/uL Red Blood Cell Morphology See comments Current Medications Medications (Trade) Dose Ordered Sig/Efraín Route PRN Reason Start Time Stop Time Status Last Admin Dose Admin Acetaminophen (TYLenol 325MG TAB) 650 mg Q6H PRN PO TEMPERATURE GREATER THAN 101.5 01/15/25 02:30 02/14/25 02:29 Apixaban (EliquIS) 5 mg BID PO 01/18/25 21:00 02/17/25 20:59 01/20/25 09:36 5 MG Aspirin (Aspirin 81mg Ec Tab) 81 mg DAILY PO 01/15/25 09:00 01/16/25 07:43 DC Carvedilol (Coreg 12.5MG) 12.5 mg BID PO 01/16/25 12:30 02/15/25 12:29 01/20/25 09:36 12.5 MG Epoetin Zach-epbx (Retacrit) 10,000 unit QMO@1700 SQ 01/19/25 17:00 02/18/25 16:59 01/19/25 17:28 10,000 UNIT Guaifenesin/ Dextromethorphan (RobiTUSSin DM 200/20MG 10ML) 20 ml Q6H PRN PO COUGH 01/17/25 00:00 02/16/25 00:00 01/18/25 21:01 20 ML Heparin Sodium/ Dextrose 250 ml @ 0 mls/hr PROTOCOL IV 01/16/25 14:00 01/18/25 18:28 DC 01/16/25 18:17 12.29 MLS/HR Hydralazine HCl (APRESOLine 20MG INJ) 10 mg Q6H PRN IV For:SBP above 160;DBP above 90 01/15/25 02:30 02/14/25 02:29 01/16/25 09:49 10 MG Hydralazine HCl ([id number] TAB) 25 mg TID PO 01/16/25 12:30 02/15/25 12:29 01/20/25 09:37 25 MG Insulin Human Regular (humuLIN R 100 UNIT/ML 3ML) INSULIN SLIDING SCAL... ACHS SQ 01/15/25 07:30 02/14/25 07:29 01/19/25 17:04 6 UNIT Iron Sucrose 300 mg/Sodium Chloride 250 ml @ 83 mls/hr AD IV 01/19/25 17:00 01/19/25 19:07 DC Iron Sucrose 300 mg/Sodium Chloride 250 ml @ 83 mls/hr DAILY22 IV 01/19/25 22:00 01/21/25 01:01 01/19/25 22:19 83 MLS/HR Loperamide HCl (Imodium) 2 mg ONCE PO 01/19/25 17:30 01/19/25 21:30 DC 01/19/25 17:28 2 MG Morphine Sulfate (morPHINE 2MG SYG) 2 mg Q4H PRN IVP SEVERE PAIN (7-10) 01/15/25 03:00 01/20/25 05:59 DC 01/15/25 22:58 2 MG Nitroglycerin (Nitroglycerin 1gm Oint) 0.5 inch Q8H TD 01/15/25 02:30 02/14/25 02:29 01/20/25 02:48 0.5 INCH Ondansetron HCl (zoFRAN 4MG INJ) 4 mg Q6H PRN IV NAUSEA/VOMITING 01/15/25 02:30 02/14/25 02:29 Pantoprazole Sodium (PROTonix 40MG INJ) 40 mg BID IVP 01/15/25 21:00 02/14/25 20:59 01/20/25 09:36 40 MG Pantoprazole Sodium (PROTonix 40MG TAB) 40 mg DAILY PO 01/15/25 09:00 01/15/25 09:53 DC Sodium Chloride 1,000 ml @ 75 mls/hr [id number] IV 01/15/25 02:30 01/15/25 09:53 DC 01/15/25 02:45 75 MLS/HR Vitamin B Complex/ Vit C/Folic Acid (Nephrovite Tablet) 1 cap DAILY PO 01/16/25 09:00 02/15/25 08:59 01/20/25 09:36 1 CAP DIAGNOSTICS / RADIOLOGY: [ ] ASSESSMENT: Acute exacerbation of systolic and diastolic heart failure POA Acute on chronic DVT of lower extremity POA Normocytic anemia, POA JAMI on CKD POA unsure about baseline creatinine Moderate pericardial effusion, POA Acute blood loss anemia, POA Possible type 2 DC, POA Uncontrolled Diabetes mellitius type2, POA Elevated BNP Elevated troponin Hypertension Hyperlipidemia Diabetic nephropathy, POA PLAN: Acute excacerbation of systolic and diastolic heart failure -2D echocardiogram: LVEF <48%. There is moderate pericardial effusion and early signs of tamponade. -V/Q scan to rule out PE- negative -Further tests ordered to evaluate cause of HF, including chest x-ray (results show clear lungs) and NM stress test (results pending) -We will continue to follow cardiology recommendations. JAMI on CKD -Cr: 4.1 trending up. -Renal ultrasound: Hyperechoic kidneys c/w renal parenchymal disease. -Urinalysis shows significant proteinuria -Urine protein-creatinine ratio- 00635 -avoid IV contrast -0.9% NS at 75 mL/HR IV fluid maintenance therapy -Avoid nephrotoxic agents when possible -Renally dose all medications when possible -Nephrology consulted, we will follow their recommendations Acute on chronic DVT -Start on Eliquis 5 mg b.i.d. -V/Q scan - negative for PE -status post IVC filter placement on 01/17/2025 Acute anemia: -hemoglobin remained stable at 8.2, same as yesterday -Iron panel ordered, follow up with results -Serum ferritin ordered, follow up with results -Transfuse if hgb < 7 mg/dL -EGD- no acute GI bleed seen Diabetes mellitus: -Insulin sliding scale -A1C: 11.9 -Monitor glucose levels. GI prophylaxis: Protonix IV ordered. DVT prophylaxis: Heparin This plan has been approved by my attending, Dr. Crowell. NOAH ELLSWORTH MD January 20, 2025 10:08
[2025-01-20] MEDS: LOPERAMIDE HCL 2 MG CAP PO PRN (11:29)
--- NOTE | 2025-01-20 12:06 | PN ---
[facility] CARDIOLOGY PROGRESS NOTE Cardiology progress note dictated for Pawel House MD Date Patient Seen: January 20, 2025 Interval History: The patient endorsed left chest and mid back discomfort with coughing and palpation. Physical Examination: GENERAL: No acute distress. HEAD: Normal with no signs of head trauma. EYES: PERRLA, EOMI, conjunctiva and sclera normal. NECK: Supple without JVD. There is no tenderness, lymphadenopathy, or masses. No thyromegaly. Normal carotid upstrokes without bruits. LUNGS: Clear breath sounds bilaterally. No wheezes, or rhonchi. HEART: Normal rate and rhythm. Normal S1 and S2 without murmurs, gallop or rub. VASC: Peripheral pulses +2 bilaterally. EXT: No clubbing or cyanosis. LLE with 2+ edema. NEURO: Awake, alert, and oriented x3. No focal neurological deficits noted. Laboratory: Hematology Labs: Test 01/20/25 03:43 01/19/25 03:33 Range/Units White Blood Count 7.2 4.8-10.8 K/uL Red Blood Count 3.03 L 4.00-5.50 MIL/uL Hemoglobin 8.0 L 12.0-16.0 g/dL Hematocrit 25.3 L 36-48 % Mean Corpuscular Volume 83.5 79-99 fL Mean Corpuscular Hemoglobin 26.4 L 27.0-33.0 pg Mean Corpuscular Hemoglobin Concent 31.6 L 32.0-36.0 g/dL Red Cell Distribution Width 14.6 11.0-15.5 % Platelet Count 251 130-400 K/uL Mean Platelet Volume 11.1 H 7.5-10.5 fL Nucleated Red Blood Cells 0.0 0.0-0.19 % Immature Granulocyte % (Auto) 0.7 0-1 % Neutrophils (%) (Auto) 72.4 40.0-77.0 % Lymphocytes (%) (Auto) 15.4 L 21.0-51.0 % Monocytes (%) (Auto) 8.9 3.0-13.0 % Eosinophils (%) (Auto) 2.4 0.0-8.0 % Basophils (%) (Auto) 0.2 0.0-5.0 % Neutrophils # (Auto) 6.0 1.8-7.7 K/uL Lymphocytes # (Auto) 1.3 1.0-4.8 K/uL Monocytes # (Auto) 0.7 0.1-1.0 K/uL Eosinophils # (Auto) 0.20 0.00-0.70 K/uL Basophils # (Auto) 0.02 0.00-0.20 K/uL Absolute Immature Granulocyte (auto 0.06 0-1 K/uL Red Blood Cell Morphology See comments Chemistry Labs: Test 01/20/25 06:14 01/20/25 03:43 01/19/25 16:06 Range/Units Whole Blood Glucose 123 H 70-110 MG/DL Sodium Level 136 136-145 mmol/L Potassium Level 4.0 3.5-5.1 mmol/L Chloride Level 103 101-111 mmol/L Carbon Dioxide Level 24 21-32 mmol/L Blood Urea Nitrogen 24 H 7-18 mg/dL Creatinine 4.1 H 0.5-1.0 mg/dL Glomerular Filtration Rate Calc 13 >90 mL/min Random Glucose 118 H 70-105 mg/dL Total Calcium 7.1 L 8.5-10.1 mg/dL Magnesium Level 1.60 L 1.80-2.40 mg/dL Total Bilirubin 0.2 0.2-1.0 mg/dL Aspartate Amino Transf (AST/SGOT) 16 10-37 U/L Alanine Aminotransferase (ALT/SGPT) 9 L 12-78 U/L Alkaline Phosphatase 64 50-136 U/L Total Protein 4.8 L 6.0-8.3 g/dL Albumin 1.1 L 3.5-5.0 g/dL Bedside Glucose Comment Notified Nurse Diagnostics / Radiology: Limited 2D echocardiogram on 01/17/2025 Conclusion This is a limited follow up echo. Left ventricular cavity size is normal. LVEF is 45-50%. Stage II, diastolic dysfunction. The right ventricle is normal size. The right ventricular systolic function is normal. Moderate pericardial effusion. DICTATED BY: INNA FLORES MD DATE: 01/17/251428 Impression and Plan: Acute combined systolic and diastolic congestive heart failure Unilateral edema related to extensive DVT in femoral and popliteal veins on left status post IVC filter placement Elevated D-Dimer 2297, PE excluded by V/Q scan on 01/16 Normocytic anemia, s/p EGD on 01/16/2025 with LA grade A reflux esophagitis, gastritis, small hiatal hernia Acute kidney injury, creatinine 1.3 on 04/22/2023 Uncontrolled Diabetes mellitus type2, HgA1c of 11.3% Nonspecific Elevated troponin Hypertension Hyperlipidemia # Extensive DVT in femoral and popliteal veins on the left via Doppler on 01/15 S/p IVC filter placed on 01/17/2025 -Continue Eliquis 5mg bid #Acute combined systolic and diastolic congestive heart failure Suspected ICM. NYHA II. 2D Echo on 01/15/2025 with an EF of 48%, stage I diastolic dysfunction and a moderate pericardial effusion with early signs of tamponade Repeat limited 2D echo on 01/17/2025 with an EF of 45-50%, stage II diastolic dysfunction, and moderate pericardial effusion. BNP 3560/ troponins are weakly elevated with a flattened trend -Continue GDMT: Coreg 12.5mg bid -Not a candidate for GEORGE/ARB/MRA/Entresto due to worsening renal function -Strict I's and O's and daily weights, keep on telemetry, monitor/replace elec trolytes as needed -Further recommendation pending Nuclear scan results ATTESTATION BY PHYSICIAN I have seen and examined the patient, reviewed the above documentation, participated in medical decision making, made necessary modifications, and agree with the treatment plan as documented by my mid-level provider above. Nuclear imaging has been performed yesterday but is not processed and ready for interpretation for some reason. On the raw images I saw there appears to be anterior artifact; we need the processed images before we can interpret appropriately. MD MARKEL Franks [facility] January 20, 2025 12:06 NIGHAT HOUSE MD January 20, 2025 21:11
[2025-01-20] MEDS: MAGNESIUM 2GM PREMIX 50ML 50 ML IV ONE (14:38)
--- NOTE | 2025-01-20 17:21 | NUR ---
Lindy Patient is a possible discharge, pending Lindy. Cannot find Lindy report in [employer] or [employer]. Escalated to [employer].
--- NOTE | 2025-01-20 20:32 | PN ---
SUBJECTIVE: The patient has renal failure, anemia and multiple other comorbidities. This patient has diabetes, hypertension and hyperlipidemia. Other systemic review is unchanged. No other associated findings. No other aggravating or relieving factors. PHYSICAL EXAMINATION: VITAL SIGNS: Blood pressure is 134/70, pulse 89, respiratory rate is 18 and afebrile. HEENT: Head is atraumatic, normocephalic. Pupils are round and reactive. Sclerae are anicteric. Conjunctivae not pale. Oral mucosa is not dry. NECK: Supple. No masses or bruits. Thyroid is palpable. Neck has no bruits. CHEST: Shows equal thoracic percussion, note being resonant in all areas. LABORATORY DATA: Labs have been reviewed. Low hemoglobin of 8, BUN of 24, creatinine is 4.1, very low albumin of 1.1. PROBLEMS: * Renal failure. * Anemia. * Proteinuria. PLAN: At this time, the patient will need close followup. The patient has severe proteinuria. The patient will need a protein-restricted diet. Eventually, may need dialysis. The patient will have a followup on blood pressure and electrolytes. More than likely has diabetic nephropathy. Electrolyte, renal function, sugars and overall status to be monitored. We will be monitoring the overall status closely. Condition is critically guarded. Intake, output, weight will be monitored. I have discussed with her team physician. IV iron ordered. Epogen as needed. Total time spent today was almost 45-50 minutes. Thank you for this patient. TID: [id number] RECEIPT: [id number]
[2025-01-21] VITALS (10 sets, daily range): BP systolic 129–164; BP diastolic 64–87; PULSE 88–99; RESP 18–20; TEMP 97.6–98.6; O2SAT 97
[2025-01-21 04:49] LABS: BASOPHILS # (AUTO) 0.04 K/uL (0.00-0.20); BASOPHILS % (AUTO) 0.4 % (0.0-5.0); EOSINOPHILS # (AUTO) 0.26 K/uL (0.00-0.70); EOSINOPHILS % (AUTO) 2.7 % (0.0-8.0); HEMATOCRIT 25.7 % (36-48); IMMATURE GRANULOCYTE ABSOLUTE 0.22 K/uL (0-1); LYMPHOCYTES # (AUTO) 0.9 K/uL (1.0-4.8); LYMPHOCYTES % (AUTO) 9.5 % (21.0-51.0); MEAN CORPUSCULAR HEMOGLOBIN 26.8 pg (27.0-33.0); MEAN CORPUSCULAR HGB CONC 31.1 g/dL (32.0-36.0); MEAN CORPUSCULAR VOLUME 86.2 fL (79-99); MONOCYTES # (AUTO) 0.8 K/uL (0.1-1.0); MONOCYTES % (AUTO) 7.9 % (3.0-13.0); NEUTROPHILS # (AUTO) 7.4 K/uL (1.8-7.7); NEUTROPHILS % (AUTO) 77.2 % (40.0-77.0); PLATELET COUNT (AUTO) 258 K/uL (130-400); RED BLOOD CELL COUNT(AUTO) 2.98 MIL/uL (4.00-5.50); RED CELL DISTRIBUTION WIDTH 14.8 % (11.0-15.5); WHITE BLOOD COUNT (AUTO) 9.5 K/uL (4.8-10.8)
[2025-01-21 05:07] LABS: ALBUMIN 1.1 g/dL (3.5-5.0); BILIRUBIN,TOTAL 0.1 mg/dL (0.2-1.0); CREATININE 4.4 mg/dL (0.5-1.0); PHOSPHORUS 5.4 mg/dL (2.5-4.9); TOTAL PROTEIN, SERUM 5.1 g/dL (6.0-8.3)
--- NOTE | 2025-01-21 09:34 | PN ---
[facility] PROGRESS NOTE Date of Service: January 21, 2025 Time of Service: 09:31 SUBJECTIVE: Ms. Jesse Meza is a 49-year-old female that was seen and examined today on 01/15/2025. Patient came to the emergency department with a chief complaint of shortness of breath. Onset was four days ago. Location is to lungs. Character is described as, like I can not get enough air. Symptoms are aggravated with physical activity. There was no alleviating factors. Patient reports associated pedal edema. Today in the emergency department hemoglobin 6.8, hematocrit 21.5, creatinine 3.2, BUN 34, GFR 17, glucose 211 mg/dL, troponin 137.8, influenza negative, COVID negative, strep negative, BNP 2070, chest x-ray is pending radiology interpretation. Emergency room physician recommended patient be admitted with a diagnosis of anemia. 01/15: Patient seen and examined this morning at bedside. Chest x-ray positive for bilateral pleural effusions. Patient reports black, tarry stools. Hgb is 6.8 today, Hct 21.5. Gastroenterology was consulted for black, tarry stools. FOBT ordered and pending. Cardiology has been consulted. 2D echo results pending. Aspirin has been held. Protonix IV 40 mg added to medication regimen. Medications will be reconciled once available. 01/16: Patient was seen and examined this morning at bedside. Patients hgb today is 9.9, up from yesterdays 6.7. EGD done today, there was no evidence of an active bleed. Black tarry stools likely secondary to oral iron medication. Heparin drip started. 2D echocardiogram shows LVEF 48%, no RV strain, moderate pericardial effusion, early signs of tamponade. We will continue to follow cardiology recommendations. 01/17: Patient was seen and examined this morning at bedside. Hgb this morning was 7.7. Repeat hgb level was 8.2. Patient is currently being followed by Cardiology, GI, and nephrology. IVC filter placement ordered due to patients fluctuating hgb. 2D echo bedside limited study ordered to assess for cardiac tamponade. Patient is placed on NPO. 01/18/25: Lying in bed at the time of evaluation. Alert and oriented in no obvious distress. Patient is status post IVC placement 01/17/25. Patient's hemoglobin remained steady at 8.2 same as yesterday. Patient denies any chest pain, shortness of breath, or palpitations. Patient is being followed by Cardiology, GI and Nephrology. Seen by Cardiology today decided to start patient on Eliquis 5 mg b.i.d. Plan for possible discharge tomorrow. 01/19: Patient seen and and examined this morning at bedside. Patient is s/p IVC filter placement. Hemoglobin has been stable, at 8.2. Per cardiology recommendations, Eliquis has been restarted. Patients creatinine is trending up at 3.9, secondary to diabetic nephropathy. Further workup for patients heart failure has been ordered by cardiology, including a chest x-ray and NM stress test. We will continue to follow cardiology recommendations. 01/20: Patient was seen and examined this morning at bedside. Patient is s/p IVC filter placement. Hemoglobin has been stable. Patient complains of episodes of watery diarrhea. C. diff ordered and was negative. GI stool PCR ordered and pending. Imodium has been ordered for patient's diarrhea. Smith larkin's diet has been advanced to a heart healthy diet. We will replace magnesium IV due to patients loose stools. Pending stress test results for further recommendations by cardiology. 01/21: Patient was seen and examined this morning at bedside. Patient is s/p IVC filter. Hemoglobin remains stable. Patient reports no episodes of watery diarrhea today. Lexiscan stress test results are negative. Pending cardiology final recommendations prior to patients discharge. REVIEW OF SYSTEMS CONSTITUTIONAL: Denies fevers, chills, or night sweats. No unintentional weight loss reported. NEUROLOGICAL: Denies headache, amaurosis fugax, motor weakness, sensory deficit, vertigo/spinning sensation, gait abnormalities, or tremors. ENT: No hearing loss, otalgia, otorrhea, rhinitis, rhinorrhea, hoarseness, or sore throat. CARDIOVASCULAR: Denies any exertional angina, dyspnea on exertion, orthopnea, paroxysmal nocturnal dyspnea, palpitations, life-threatening arrhythmias, claudication. PULMONARY: Denies any shortness of breath, cough, phlegm/sputum, hemoptysis, pleuritic chest pain. SLEEP: Denies morning headaches, daytime somnolence or napping. Denies difficulty falling asleep, staying asleep, waking from sleep. Denies knowledge of snoring. GASTROINTESTINAL: Denies any type of dysphagia to either liquids or solids. Denies nausea, vomiting, pyrosis, early satiety, abdominal pain, diarrhea, constipation, or changes in stool consistency or caliber. Denies coffee-ground emesis, hematemesis, hematochezia, or melanotic stools. GENITOURINARY: Denies frequency, urgency, nocturia, hematuria or incontinence (Storage/Irritative symptoms.) Low urinary stream, straining to void, urinary intermittency or hesitancy, splitting of the voiding stream, terminal dribbling. ENDOCRINOLOGIC: Denies polyuria, polydipsia, polyphagia or heat/cold intolerances. HEMATOLOGIC: Denies thrombophilia/previous clots, or coagulopathy/bleeding disorders. ONCOLOGIC: Denies personal history of malignancy. DERMATOLOGIC: Denies rashes or pruritus. PSYCHIATRIC: Denies any suicidal or homicidal ideation. Denies hallucinations. PHYSICAL EXAM GENERAL APPEARANCE: The patient is awake, alert, and oriented, in no acute cardiopulmonary distress. NEUROLOGICAL: Cranial nerves II-XII grossly intact. Motor is 5/5 in bilateral upper and lower extremities proximal to distal. No sensory deficits. HEENT: Face is symmetric. Pupils are equal and reactive. Extraocular movements are intact. NECK: Supple. No JVD. No thyromegaly. No submental, submandibular, pre- /postauricular, occipital or supraclavicular lymphadenopathy. CHEST: Normal chest expansion. No Telemetry. LUNGS: Absence of any rales, rhonchi or any wheezing. CARDIOVASCULAR: Regular. S1 and S2 normal. No appreciable rubs, murmurs or gallops. ABDOMEN: Soft, nontender, and nondistended. There is no rebound, voluntary guarding, or rigidity. : Deferred. No Buckner. EXTREMITIES: Non-edematous and not cyanotic. No clubbing. Good capillary refill. SKIN: No skin breakdown. Vital Signs (last 8hr) Date Time Temp Pulse Resp B/P (MAP) Pulse Ox O2 Delivery O2 Flow Rate FiO2 01/21/25 09:14 164/87 01/21/25 07:48 97.9 92 20 164/87 95 Room Air 01/21/25 04:35 98.2 88 18 130/71 96 Room Air 01/21/25 04:34 98.2 88 18 130/71 96 Room Air LABS: Laboratory: Test 01/21/25 05:15 01/21/25 04:33 01/21/25 00:36 01/20/25 03:43 Range/Units Whole Blood Glucose 203 #H 70-110 MG/DL White Blood Count 9.5 4.8-10.8 K/uL Red Blood Count 2.98 L 4.00-5.50 MIL/uL Hemoglobin 8.0 L 12.0-16.0 g/dL Hematocrit 25.7 L 36-48 % Mean Corpuscular Volume 86.2 79-99 fL Mean Corpuscular Hemoglobin 26.8 L 27.0-33.0 pg Mean Corpuscular Hemoglobin Concent 31.1 L 32.0-36.0 g/dL Red Cell Distribution Width 14.8 11.0-15.5 % Platelet Count 258 130-400 K/uL Mean Platelet Volume 10.8 H 7.5-10.5 fL Immature Granulocyte % (Auto) 2.3 H 0-1 % Neutrophils (%) (Auto) 77.2 H 40.0-77.0 % Lymphocytes (%) (Auto) 9.5 L 21.0-51.0 % Monocytes (%) (Auto) 7.9 3.0-13.0 % Eosinophils (%) (Auto) 2.7 0.0-8.0 % Basophils (%) (Auto) 0.4 0.0-5.0 % Neutrophils # (Auto) 7.4 1.8-7.7 K/uL Lymphocytes # (Auto) 0.9 L 1.0-4.8 K/uL Monocytes # (Auto) 0.8 0.1-1.0 K/uL Eosinophils # (Auto) 0.26 0.00-0.70 K/uL Basophils # (Auto) 0.04 0.00-0.20 K/uL Absolute Immature Granulocyte (auto 0.22 0-1 K/uL Nucleated Red Blood Cells 0.0 0.0-0.19 % White Cell Morphology Comment See comments Sodium Level 136 136-145 mmol/L Potassium Level 4.0 3.5-5.1 mmol/L Chloride Level 103 101-111 mmol/L Carbon Dioxide Level 21 21-32 mmol/L Blood Urea Nitrogen 31 H 7-18 mg/dL Creatinine 4.4 H 0.5-1.0 mg/dL Glomerular Filtration Rate Calc 12 >90 mL/min Random Glucose 205 H 70-105 mg/dL Total Calcium 7.4 L 8.5-10.1 mg/dL Phosphorus Level 5.4 H 2.5-4.9 mg/dL Total Bilirubin 0.1 L 0.2-1.0 mg/dL Aspartate Amino Transf (AST/SGOT) 15 10-37 U/L Alanine Aminotransferase (ALT/SGPT) 8 L 12-78 U/L Alkaline Phosphatase 84 50-136 U/L Total Protein 5.1 L 6.0-8.3 g/dL Albumin 1.1 L 3.5-5.0 g/dL Bedside Glucose Comment Notified Nurse Magnesium Level 1.60 L 1.80-2.40 mg/dL Test 01/19/25 18:21 Range/Units C. difficile Antigen and Toxins A,B See comments NEG Current Medications Medications (Trade) Dose Ordered Sig/Efraín Route PRN Reason Start Time Stop Time Status Last Admin Dose Admin Acetaminophen (TYLenol 325MG TAB) 650 mg Q6H PRN PO TEMPERATURE GREATER THAN 101.5 01/15/25 02:30 02/14/25 02:29 Apixaban (EliquIS) 5 mg BID PO 01/18/25 21:00 02/17/25 20:59 01/21/25 09:14 5 MG Aspirin (Aspirin 81mg Ec Tab) 81 mg DAILY PO 01/15/25 09:00 01/16/25 07:43 DC Carvedilol (Coreg 12.5MG) 12.5 mg BID PO 01/16/25 12:30 02/15/25 12:29 01/21/25 09:14 12.5 MG Epoetin Zach-epbx (Retacrit) 10,000 unit QMO@1700 SQ 01/19/25 17:00 02/18/25 16:59 01/19/25 17:28 10,000 UNIT Guaifenesin/ Dextromethorphan (RobiTUSSin DM 200/20MG 10ML) 20 ml Q6H PRN PO COUGH 01/17/25 00:00 02/16/25 00:00 01/18/25 21:01 20 ML Heparin Sodium/ Dextrose 250 ml @ 0 mls/hr PROTOCOL IV 01/16/25 14:00 01/18/25 18:28 DC 01/16/25 18:17 12.29 MLS/HR Hydralazine HCl (APRESOLine 20MG INJ) 10 mg Q6H PRN IV For:SBP above 160;DBP above 90 01/15/25 02:30 02/14/25 02:29 01/16/25 09:49 10 MG Hydralazine HCl ([id number] TAB) 25 mg TID PO 01/16/25 12:30 02/15/25 12:29 01/21/25 09:14 25 MG Insulin Human Regular (humuLIN R 100 UNIT/ML 3ML) INSULIN SLIDING SCAL... ACHS SQ 01/15/25 07:30 02/14/25 07:29 01/20/25 20:43 4 UNIT Iron Sucrose 300 mg/Sodium Chloride 250 ml @ 83 mls/hr AD IV 01/19/25 17:00 01/19/25 19:07 DC Iron Sucrose 300 mg/Sodium Chloride 250 ml @ 83 mls/hr DAILY22 IV 01/19/25 22:00 01/21/25 01:01 DC 01/20/25 21:56 83 MLS/HR Loperamide HCl (Imodium) 2 mg AD PRN PO AFTER EACH LOOSE STOOL 01/20/25 11:30 02/19/25 11:29 01/20/25 11:29 2 MG Loperamide HCl (Imodium) 2 mg ONCE PO 01/19/25 17:30 01/19/25 21:30 DC 01/19/25 17:28 2 MG Morphine Sulfate (morPHINE 2MG SYG) 2 mg Q4H PRN IVP SEVERE PAIN (7-10) 01/15/25 03:00 01/20/25 05:59 DC 01/15/25 22:58 2 MG Nitroglycerin (Nitroglycerin 1gm Oint) 0.5 inch Q8H TD 01/15/25 02:30 02/14/25 02:29 01/21/25 03:01 0.5 INCH Ondansetron HCl (zoFRAN 4MG INJ) 4 mg Q6H PRN IV NAUSEA/VOMITING 01/15/25 02:30 02/14/25 02:29 Pantoprazole Sodium (PROTonix 40MG INJ) 40 mg BID IVP 01/15/25 21:00 02/14/25 20:59 01/21/25 09:14 40 MG Pantoprazole Sodium (PROTonix 40MG TAB) 40 mg DAILY PO 01/15/25 09:00 01/15/25 09:53 DC Sodium Chloride 1,000 ml @ 75 mls/hr [id number] IV 01/15/25 02:30 01/15/25 09:53 DC 01/15/25 02:45 75 MLS/HR Vitamin B Complex/ Vit C/Folic Acid (Nephrovite Tablet) 1 cap DAILY PO 01/16/25 09:00 02/15/25 08:59 01/21/25 09:14 1 [facility] / RADIOLOGY: [place] [id number] [address] IMAGING REPORT Signed PATIENT: YO ESCOBAR MR#: [id number] : 1975 SEX: F AGE: 49 LOCATION: [facility] ORDER [id number] STATUS: ADM IN REPORT#: [id number] SERVICE REASON: ELEVATED TI ORDERING PHYSICIAN: KLAUS TRONCOSO MD PROCEDURE: CARD PRASANNA - NM LEXISCAN CARDIOLITE APPROVED REPORT Height: 4 ft 11in Weight: 164 lbs TEST INDICATIONS ELEVATED TI The imaging protocol used to acquire images was Rest Tc-99m/stress Tc-99m 1 day Consent: The procedure was explained and understood by the patient. Informerd consent was witnessed by ALEISHA BOWLING RN First, low dose rest was performed then high dose stress. RESTING DATA: The resting ekg shows: NSR Rest SPECT myocardial perfusion imaging was performed in supine position minutes following the intravenous injection of 11 mCi of Tc-99 Sestamibi. Time of rest injection: 07:56: Date: 01/19/2025 PHARMACOLOGIC STRESS: Pharmacologic stress test was performed by injecting regadenoson 0.4 mg IV push followed by the intravenous injection of 27 mCi of Tc-99 Sestamibi. Time of stress injection: 09:20: Date: 01/19/2025 Heart Rate at time of stress injection: 90 bpm. Gated Stress SPECT was performed 60 minutes after stress injection. The images were gated to evaluate regional wall motion and calculate left ventricular ejection fraction. STRESS DETAILS Reason for Termination: Infusion complete Stress Symptoms: Chest pressure Max HR Achieved: 94 bpm % of APMHR Achieved: 65 Max Blood Pressure: 154/80 mmHg Stress ECG: NSR Study quality was fair. Lung uptake was Normal. Artifact: soft tissue attenuation artifact LEFT VENTRICLE The left ventricular ejection fraction was calculated to be 49%.TID = 1.09. LV PERFUSION Stress Perfusion Normal IMPRESSION Equivocally normal pharmacologic nuclear stress test. Conclusion Equivocally normal [id number] stress test with an LVEF of 49% and a TID of 1.09 There is an anteroseptal defect on resting images which improves on stress suggestive of artifact. No reversibel ischemia observed. 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 There is moderate pericardial effusion and early signs of tamponade. -V/Q scan to rule out PE- negative -Further tests ordered to evaluate cause of HF, including chest x-ray (results show clear lungs) and Lexiscan stress test (results pending) -We will continue to follow cardiology recommendations. JAMI on CKD -Cr: 4.1 trending up. -Renal ultrasound: Hyperechoic kidneys c/w renal parenchymal disease. -Urinalysis shows significant proteinuria -Urine protein-creatinine ratio- [id number] -avoid IV contrast -0.9% NS at 75 mL/HR IV fluid maintenance therapy -Avoid nephrotoxic agents when possible -Renally dose all medications when possible -Nephrology consulted, we will follow their recommendations Acute on chronic DVT -Start on Eliquis 5 mg b.i.d. -V/Q scan - negative for PE -status post IVC filter placement on 01/17/2025 Acute anemia: -hemoglobin remained stable at 8.2, same as yesterday -Iron panel ordered, follow up with results -Serum ferritin ordered, follow up with results -Transfuse if hgb < 7 mg/dL -EGD- no acute GI bleed seen Diabetes mellitus: -Insulin sliding scale -A1C: 11.9 -Monitor glucose levels. GI prophylaxis: Protonix IV ordered. DVT prophylaxis: Heparin This plan has been approved by my attending, Dr. Crowell. NOAH ELLSWORTH MD January 21, 2025 09:34
--- NOTE | 2025-01-21 10:47 | HMCSR ---
APPROVED REPORT Height: 4 ft 11in Weight: 164 lbs TEST INDICATIONS ELEVATED TI The imaging protocol used to acquire images was Rest Tc-99m/stress Tc-99m 1 day Consent: The procedure was explained and understood by the patient. Informerd consent was witnessed Mery BOWLING RN First, low dose rest was performed then high dose stress. RESTING DATA: The resting ekg shows: NSR Rest SPECT myocardial perfusion imaging was performed in supine position minutes following the intra venous injection of 11 mCi of Tc-99 Sestamibi. Time of rest injection: 07:56: Date: 01/19/2025 PHARMACOLOGIC STRESS: Pharmacologic stress test was performed by injecting regadenoson 0.4 mg IV push followed by the intra venous injection of 27 mCi of Tc-99 Sestamibi. Time of stress injection: 09:20: Date: 01/19/2025 Heart Rate at time of stress injection: 90 bpm. Gated Stress SPECT was performed 60 minutes after stress injection. The images were gated to evaluate regional wall motion and calculate left ventricular ejection fracti on. STRESS DETAILS Reason for Termination: Infusion complete Stress Symptoms: Chest pressure Max HR Achieved: 94 bpm % of APMHR Achieved: 65 Max Blood Pressure: 154/80 mmHg Stress ECG: NSR Study quality was fair. Lung uptake was Normal. Artifact: soft tissue attenuation artifact LEFT VENTRICLE The left ventricular ejection fraction was calculated to be 49%.TID = 1.09. LV PERFUSION Stress Perfusion Normal IMPRESSION Equivocally normal pharmacologic nuclear stress test. Conclusion Equivocally normal [id number] stress test with an LVEF of 49% and a TID of 1.09 There is an anteroseptal defect on resting images which improves on stress suggestive of artifact. No reversibel ischemia observed.
[2025-01-21] MEDS: LIDOCAINE 4% ADH..PATCH TP ONE (12:52)
--- NOTE | 2025-01-21 13:34 | PN ---
NEPHROLOGY PROGRESS NOTE Date/Time Patient Seen: January 21, 2025 SUBJECTIVE: This is a 49-year-old female with a past medical history of chronic kidney disease, diabetes mellitus type 2, anemia, hypertension, hyperlipidemia. She presented to emergency room with complaints of shortness of breath. Other systemic review is unchanged. The patient remains weak. The patient has underlying shortness of breath, fluid overload. The patient has anemia. EGD has been done with no acute bleeding. There is a moderate pericardial effusion. S/p IVC filter on She was noted to have elevated BUN/creatinine. We has been consulted for renal failure. Renal ultrasound was noted. She was noted with significant proteinuria. Renal function and electrolytes are stable She was seen in the medical floor, in no acute distress No family at the bedside Prognosis remains guarded REVIEW OF SYSTEMS: GENERAL: Negative for any nausea, vomiting, fevers, chills, or weight loss. NEUROLOGIC: Negative for any blurry vision, blind spots, double vision, facial asymmetry, dysphagia, dysarthria, hemiparesis, hemisensory deficits, vertigo, ataxia. HEENT: Negative for any head trauma, neck trauma, neck stiffness, photophobia, phonophobia, sinusitis, rhinitis. CARDIAC: Negative for any chest pain, dyspnea on exertion, paroxysmal nocturnal dyspnea, peripheral edema. PULMONARY: Negative for any shortness of breath, wheezing, COPD, or TB exposure. GASTROINTESTINAL: Negative for any abdominal pain, nausea, vomiting, bright red blood per rectum, melena. GENITOURINARY: Negative for any dysuria, hematuria, incontinence. INTEGUMENTARY: Negative for any rashes, cuts, insect bites. RHEUMATOLOGIC: Negative for any joint pains, photosensitive rashes, history of vasculitis or kidney problems. HEMATOLOGIC: Negative for any abnormal bruising, frequent infections or bleeding. Vital Signs (last 8hr) Date Time Temp Pulse Resp B/P (MAP) Pulse Ox O2 Delivery O2 Flow Rate FiO2 01/19/25 11:00 97.7 87 18 158/73 100 Room Air 01/19/25 09:00 155/76 01/19/25 07:00 97.3 91 16 155/76 95 Room Air 01/19/25 04:12 98.2 83 18 145/72 98 Room Air PHYSICAL EXAM: GENERAL: Alert and oriented x 3. No acute distress. Well-nourished. EYES: EOMI. Anicteric. HENT: Moist mucous membranes. No scleral icterus. No cervical lymphadenopathy. LUNGS: Clear to auscultation bilaterally. No accessory muscle use. CARDIOVASCULAR: Regular rate and rhythm. No murmur. No JVD. ABDOMEN: Soft, non-tender and non-distended. No palpable masses. EXTREMITIES: No edema. Non-tender.?SKIN: No rashes or lesions. Warm. NEUROLOGIC: No focal neurological deficits. CN II-XII grossly intact, but not individually tested. PSYCHIATRIC: Cooperative. Appropriate mood and affect. Current Medications Medications (Trade) Dose Ordered Sig/Efraín Route PRN Reason Start Time Stop Time Status Last Admin Dose Admin Acetaminophen (TYLenol 325MG TAB) 650 mg Q6H PRN PO TEMPERATURE GREATER THAN 101.5 01/15/25 02:30 02/14/25 02:29 Apixaban (EliquIS) 5 mg BID PO 01/18/25 21:00 02/17/25 20:59 01/18/25 20:38 5 MG Aspirin (Aspirin 81mg Ec Tab) 81 mg DAILY PO 01/15/25 09:00 01/16/25 07:43 DC Carvedilol (Coreg 12.5MG) 12.5 mg BID PO 01/16/25 12:30 02/15/25 12:29 01/18/25 20:38 12.5 MG Guaifenesin/ Dextromethorphan (RobiTUSSin DM 200/20MG 10ML) 20 ml Q6H PRN PO COUGH 01/17/25 00:00 02/16/25 00:00 01/18/25 21:01 20 ML Heparin Sodium/ Dextrose 250 ml @ 0 mls/hr PROTOCOL IV 01/16/25 14:00 01/18/25 18:28 DC 01/16/25 18:17 12.29 MLS/HR Hydralazine HCl (APRESOLine 20MG INJ) 10 mg Q6H PRN IV For:SBP above 160;DBP above 90 01/15/25 02:30 02/14/25 02:29 01/16/25 09:49 10 MG Hydralazine HCl ([id number] TAB) 25 mg TID PO 01/16/25 12:30 02/15/25 12:29 01/18/25 20:38 25 MG Insulin Human Regular (humuLIN R 100 UNIT/ML 3ML) INSULIN SLIDING SCAL... ACHS SQ 01/15/25 07:30 02/14/25 07:29 01/18/25 12:28 6 UNIT Morphine Sulfate (morPHINE 2MG SYG) 2 mg Q4H PRN IVP SEVERE PAIN (7-10) 01/15/25 03:00 01/22/25 02:59 01/15/25 22:58 2 MG Nitroglycerin (Nitroglycerin 1gm Oint) 0.5 inch Q8H TD 01/15/25 02:30 02/14/25 02:29 01/19/25 03:17 0.5 INCH Ondansetron HCl (zoFRAN 4MG INJ) 4 mg Q6H PRN IV NAUSEA/VOMITING 01/15/25 02:30 02/14/25 02:29 Pantoprazole Sodium (PROTonix 40MG INJ) 40 mg BID IVP 01/15/25 21:00 02/14/25 20:59 01/18/25 20:37 40 MG Pantoprazole Sodium (PROTonix 40MG TAB) 40 mg DAILY PO 01/15/25 09:00 01/15/25 09:53 DC Sodium Chloride 1,000 ml @ 75 mls/hr [id number] IV 01/15/25 02:30 01/15/25 09:53 DC 01/15/25 02:45 75 MLS/HR Vitamin B Complex/ Vit C/Folic Acid (Nephrovite Tablet) 1 cap DAILY PO 01/16/25 09:00 02/15/25 08:59 01/18/25 08:05 1 CAP LABORATORY: [ ] Hematology Labs: Test 01/21/25 04:33 Range/Units White Blood Count 9.5 4.8-10.8 K/uL Red Blood Count 2.98 L 4.00-5.50 MIL/uL Hemoglobin 8.0 L 12.0-16.0 g/dL Hematocrit 25.7 L 36-48 % Mean Corpuscular Volume 86.2 79-99 fL Mean Corpuscular Hemoglobin 26.8 L 27.0-33.0 pg Mean Corpuscular Hemoglobin Concent 31.1 L 32.0-36.0 g/dL Red Cell Distribution Width 14.8 11.0-15.5 % Platelet Count 258 130-400 K/uL Mean Platelet Volume 10.8 H 7.5-10.5 fL Immature Granulocyte % (Auto) 2.3 H 0-1 % Neutrophils (%) (Auto) 77.2 H 40.0-77.0 % Lymphocytes (%) (Auto) 9.5 L 21.0-51.0 % Monocytes (%) (Auto) 7.9 3.0-13.0 % Eosinophils (%) (Auto) 2.7 0.0-8.0 % Basophils (%) (Auto) 0.4 0.0-5.0 % Neutrophils # (Auto) 7.4 1.8-7.7 K/uL Lymphocytes # (Auto) 0.9 L 1.0-4.8 K/uL Monocytes # (Auto) 0.8 0.1-1.0 K/uL Eosinophils # (Auto) 0.26 0.00-0.70 K/uL Basophils # (Auto) 0.04 0.00-0.20 K/uL Absolute Immature Granulocyte (auto 0.22 0-1 K/uL Nucleated Red Blood Cells 0.0 0.0-0.19 % White Cell Morphology Comment See comments Chemistry Labs: Test 01/21/25 11:52 01/21/25 04:33 01/21/25 00:36 01/20/25 03:43 Range/Units Whole Blood Glucose 208 H 70-110 MG/DL Sodium Level 136 136-145 mmol/L Potassium Level 4.0 3.5-5.1 mmol/L Chloride Level 103 101-111 mmol/L Carbon Dioxide Level 21 21-32 mmol/L Blood Urea Nitrogen 31 H 7-18 mg/dL Creatinine 4.4 H 0.5-1.0 mg/dL Glomerular Filtration Rate Calc 12 >90 mL/min Random Glucose 205 H 70-105 mg/dL Total Calcium 7.4 L 8.5-10.1 mg/dL Phosphorus Level 5.4 H 2.5-4.9 mg/dL Total Bilirubin 0.1 L 0.2-1.0 mg/dL Aspartate Amino Transf (AST/SGOT) 15 10-37 U/L Alanine Aminotransferase (ALT/SGPT) 8 L 12-78 U/L Alkaline Phosphatase 84 50-136 U/L Total Protein 5.1 L 6.0-8.3 g/dL Albumin 1.1 L 3.5-5.0 g/dL Bedside Glucose Comment Notified Nurse Magnesium Level 1.60 L 1.80-2.40 mg/dL DIAGNOSTICS / RADIOLOGY: REASON: chf ORDERING PHYSICIAN: NIGHAT HOUSE MD PROCEDURE: CXR2VW - CHEST 2VWS Exam Type: CHEST 2VWS Clinical Information: chf Comparison: None Findings: The lungs are clear of infiltrates. The heart is normal in size. The bony and soft tissue structures of the chest are unremarkable. Impression: Clear lungs. DICTATED BY: KALEE LEVI MD DATE: 01/19/25908 REASON: dvt ORDERING PHYSICIAN: WILMER SRIVASTAVA MD PROCEDURE: CATH PROC - SCRAP SEPARATOR PROCEDURE REQUEST CLINICAL INDICATION: DVT. INDICATION: GI bleed, DVT.. CARE DIRECTOR RN: Dr. Turner TECHNIQUE: Informed consent was obtained after explaining the procedure and potential complications. Patient was placed supine on the angio table and timeout performed. All elements of maximal sterile barrier technique, including hand hygiene and cutaneous antisepsis were used. Right side of the neck was prepped and draped in standard sterile fashion. Local anesthesia was applied and under ultrasound guidance, access was gained into the right internal jugular vein with a 21G needle. Under fluoroscopic guidance, a wire and sheath were advanced down into the inferior vena cava. IVC gram performed. Then, a Option filter was deployed in the infrarenal IVC. Final images revealed filter apex at the level of the pedicle of L2. The sheath was removed and hemostasis was achieved at the entry site with manual compression. Sterile dressing was applied. Contrast: 40 mL Omnipaque IV Fluoro: 0.8 min. Blood loss: < 5 mL Complications: None. IMPRESSION: Successful infrarenal placement of retrievable inferior vena cava filter. Filter retrieval should be attempted in 2-3 months, if filter is no longer needed. The head of the bed should be elevated at 45 degrees for 3 hours. DICTATED BY: IRVING TURNER DO DATE: 01/17/25 1331 REASON: Bedside limited echo to assess for cardiac tamponade ORDERING PHYSICIAN: NOAH ELLSWORTH MD PROCEDURE: ECHO FU LD - ECHO 2-D F/U-LTD APPROVED REPORT EXAM: Two-dimensional and M-mode echocardiogram with Doppler and color Doppler. Study Details: HTN , HLD , Diabts M , CKD INDICATION ICD: bedside limited echo to asses 2D Dimensions LVOT diam 1.9 (1.8-2.4cm) Mitral Valve MV E Vmax 120.9 cm/s DECEL Time 206 ms MV A Vmax 116.9 cm/s E/A ratio 1.0 TDI E/E' Medial 23.1 E/E' Lateral 17.1 Medial E' Peak V 5.24 cm/s Lateral E' Peak V 7.09 cm/s Left Ventricle Left ventricular cavity size is normal. LVEF is 45-50%. Stage II, diastolic dysf unction. Right Ventricle The right ventricle is normal size. The right ventricular systolic function is normal. Aortic Valve There is no aortic valvular stenosis. Mitral Valve There is no mitral valve stenosis. Pericardium Moderate pericardial effusion. Ascites is present. Conclusion This is a limited follow up echo. Left ventricular cavity size is normal. LVEF is 45-50%. Stage II, diastolic dysfunction. The right ventricle is normal size. The right ventricular systolic function is normal. Moderate pericardial effusion. DICTATED BY: INNA FLORES MD DATE: 01/17/25 1428 REASON: SHORTNESS OF BREATH ORDERING PHYSICIAN: WILMER SRIVASTAVA MD PROCEDURE: PULM VQ - NM PULMONARY/LUNG VQ SCAN Exam Type: NM PULMONARY/LUNG VQ SCAN Clinical Information: SHORTNESS OF BREATH Comparison: None Findings: Anterior and posterior pulmonary ventilation scan was performed during and following inhalation of 6.8 mCi of xenon-133 gas and pulmonary perfusion images were performed following intravenous injection of Tc-labeled MAA. Ventilation: homogeneous distribution of the xenon gas in both lungs during the single breath and equilibrium phases. Symmetrical clearance of the xenon gas demonstrated in the wash out phase. No evidence of air trapping. Perfusion: homogeneous distribution of the radiolabeled particles in both lungs with normal hilar and cardiac attenuation defect. No wedge shaped or focal perfusion defects are seen. Impression: No evidence of pulmonary embolism. DICTATED BY: KALEE LEVI MD DATE: 01/16/25 1533 REASON: SHORTNES OF BREATH ORDERING PHYSICIAN: WILMER SRIVASTAVA MD PROCEDURE: CXR1VW - CHEST 1VW Exam Type: CHEST 1VW Clinical Information: SHORTNES OF BREATH Comparison: None Findings: The lungs are clear of infiltrates. The heart is enlarged. Bony and soft tissue structures of the chest wall are unremarkable. IMPRESSION: Cardiomegaly. Clear lungs. DICTATED BY: KALEE LEVI MD DATE: 01/16/25 1438 REASON: kidney failure ORDERING PHYSICIAN: DIVYA MORATAYA MD PROCEDURE: RENAL - US RENAL SONOGRAM Exam Type: US RENAL SONOGRAM Clinical Information: kidney failure Comparison: None Findings: The kidneys are hyperechoic consistent with renal parenchymal disease. There are no calculi. No hydronephrosis or calculi are seen. No renal masses are seen. There is no evidence of perinephric fluid on either side. No evidence of significant ureteral dilatation is seen. The right kidney measures 10.9 x 5 cm. The left kidney measures 10.3 x 4.9 cm. The urinary bladder is normal. No bladder masses, stones, or wall thickening is seen. IMPRESSION: Hyperechoic kidneys consistent with renal parenchymal disease. DICTATED BY: KALEE LEVI MD DATE: 01/15/25 1555 REASON: r/o DVT ORDERING PHYSICIAN: WILMER SRIVASTAVA MD PROCEDURE: VENOUS ERROL - US VENOUS DOPPLER BILATERAL Exam Type: US VENOUS DOPPLER BILATERAL Clinical Information: r/o DVT Comparison: None Findings: The examination shows nonocclusive thrombosis of the superficial femoral vein and partially of the popliteal vein as well The rest of the venous structures evaluated shows no evidence of thrombosis. IMPRESSION: Thrombus as noted. DICTATED BY: KALEE LEVI MD DATE: 01/15/25 1606 REASON: elevated bnp ORDERING PHYSICIAN: DAVY SWAN PROCEDURE: ECHO [facility] - ECHO 2-D COMPLETE APPROVED REPORT EXAM: Two-dimensional and M-mode echocardiogram with Doppler and color Doppler. INDICATION ICD: elevated bnp 2D Dimensions RVDd 3.2 cm LVEF(%) 45.6 (>50%) LVED Vol(simp.) 84.0 mL IVSd 0.9 (0.7-1.1cm) FS(%) 22 % LVES Vol(simp.) 43.0 mL LVDd 4.3 (3.8-5.6cm) LA (2D) 4.5 (1.6-4.0cm) LVEF(%, simp.) 48 % PWd 1.2 (0.7-1.1cm) Ao Root(2D) 2.6 (2.0-3.7cm) LA ESV INDEX (BP) 44.46 mL/m2 LVDs 3.4 (2.5-4.0cm) LVOT diam 1.9 (1.8-2.4cm) IVC diam 2.0 cm Deformation Strain Apical 4 -13.9 % Apical 2 -14.6 % Apical 3 -11.5 % Global Strain -13.3 % M-Mode Dimensions EPSS 1.1 cm LA (MM) 4.5 (1.6-4.0cm) Ao Root(MM) 2.7 (2.0-3.7cm) Aortic Valve AoV Vmax 1.1 m/s Ao Peak GR 5.0 mmHg LVOT Vmax 0.9 m/s AoV VTI 0.2 m Ao Mean GR 3.0 mmHg LVOT VTI 0.20 m JES (VMAX) 2.48 cm2 JES (VTI) 2.5 cm2 Mitral Valve MV E Vmax 124.8 cm/s DECEL Time 120 ms MV A Vmax 143.2 cm/s P 1/2 T 27 ms E/A ratio 0.9 MVA (PHT) 8.0 cm2 TDI E/E' Medial 62.4 E/E' Lateral 60.9 Medial E' Peak V 2.00 cm/s Lateral E' Peak V 2.05 cm/s Pulmonary Valve PV Vmax 1.1 m/s PV VTI 0.20 m PV Mean GR 2.3 mmHg PV Peak GR 4.5 mmHg Tricuspid Valve TR Vmax 3.1 m/s RAP (EST) 3 mmHg RVSP 42.0 mmHg TR Peak GR 39.0 mmHg Left Ventricle The left ventricle is normal size. Mild global hypokinesia. Mild concentric left ventricular hypertrophy. LVEF is 48%. Stage I diastolic dysfunction with markedly elevated mean LV filling pressure. Right Ventricle The right ventricle is normal size; no RV strain noted. The right ventricular systolic function is normal. Atria The left atrium size is mildly-moderately dilated with FAN 42ml/m. The right atrium size is normal. Aortic Valve The aortic valve is normal in structure. No aortic regurgitation is present. There is no aortic valvular stenosis. Mitral Valve The mitral valve is normal in structure. Mitral regurgitation is mild. There is no mitral valve stenosis. Tricuspid Valve The tricuspid valve is normal in structure. There is mild tricuspid valve regurgitation noted. Pulmonic Valve The pulmonary valve is normal in structure. There is trace pulmonic valvular regurgitation. Mild pumonary hypertension. Great Vessels The aortic root is normal in size. The IVC is borderline in size and collapses >50% with inspiration. Pericardium There is moderate pericardial effusion with early signs of tamponade: 1. I/E mitral flow velocity ratio 1.22 2. RA invagination 37% of cardiac cycle. Conclusion LVEF is 48%. Stage I diastolic dysfunction with markedly elevated mean LV filling pressure. The right ventricle is normal size; no RV strain noted. The left atrium size is mildly-moderately dilated with FAN 42ml/m. Mild pumonary hypertension. There is moderate pericardial effusion with early signs of tamponade: 1. I/E mitral flow velocity ratio 1.22 2. RA invagination 37% of cardiac cycle. DICTATED BY: NIGHAT HOUSE MD DATE: 01/15/25 0755 REASON: cough ORDERING PHYSICIAN: BART ECHAVARRIA PROCEDURE: CXR1VW - CHEST 1VW Exam Type: CHEST 1VW Clinical Information: cough Comparison: None Findings: Small bilateral pleural effusions. The lungs are clear of infiltrates. The heart is enlarged. Bony and soft tissue structures of the chest wall are unremarkable. IMPRESSION: Cardiomegaly. Small bilateral pleural effusions. 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 We have reviewed external records in detail From Nephrology standpoint, patient may be discharged Follow up in the renal clinic in 1-2 weeks Continue Epogen 55534 units subQ weekly Renal diabetic diet BiPAP as necessary, for respiratory distress Monitor blood pressure adjust medication doses as needed Avoid hypotensive episodes May use Dilaudid 0.5 mg IV every 6 hours as needed for severe pain Monitor blood sugars Strict intake, output, and daily weight should be monitored Please renally adjust medications Avoid nephrotoxic and nonsteroidal drugs Avoid contrast if possible Will continue to monitor renal function, anemia, electrolytes Treatment plan discussed with patient Questions were answered We have discussed with the other team physicians in detail about the care plan We will continue to monitor the patient closely ATTESTATION BY PHYSICIAN I have seen and examined the patient. I reviewed the documentation, medical decision making, and treatment plan as noted by the mid-level provider above. I agree with the findings and plan of care. DIVYA MORATAYA MD, [facility] January 21, 2025 13:34
--- NOTE | 2025-01-21 15:38 | DS ---
Discharge Summary Hospital Course Summary: Patient is a 49-year-old female with a past medical history of hypertension and diabetes mellitus that presented to the emergency department with a chief complaint of shortness of breath that started 4 days prior and pedal edema. In the emergency room, labs were remarkable for hemoglobin 6.8, hematocrit 21.5, creatinine 3.2, BUN 34, GFR 17, glucose 211 mg/dL, troponin 137.8, influenza negative, COVID negative, strep negative, BNP 2070. Chest x-ray was done, and showed bilateral pleural effusions. Patient reported episodes of black, tarry stools. FOBT was ordered and was negative. Gastroenterology was consulted. Aspirin was held. A venous doppler was preformed due to patients extensive history of DVTs, which was positive for a nonocclusive thrombosis of the superficial femoral vein and partially of the popliteal vein as well. EGD was done, which showed no evidence of active bleed. Heparin drip was restarted. Hemoglobin levels continued to trend down. Heparin drip was discontinued, and a retrievable IVC filter procedure was put into place. Patient had a repeat limited echocardiogram done. Cardiology restarted the patients Eliquis. Hemoglobin remained steady. Further workup for patients heart failure was done, which included a chest x-ray and a Lexiscan stress test. Chest x-ray was negative for cardiopulmonary process. Lexiscan stress test showed equivocally normal Br91m-Xoqncpmtf stress test with an LVEF of 49% and a TID of 1.09. There is an anteroseptal defect on resting images which improves on stress suggestive of artifact. No reversible ischemia was observed. Patient was having episodes of watery diarrhea, for which a CDIF test was done and was negative. Patients w atery diarrhea was managed with Imodium, and resolved by the next day. Patient was advised to follow up with cardiology, nephrology, and her primary care physician within 1 week upon discharge. Please follow up with interventional radiology within 2-3 months for possible IVC filter retrieval. All questions were answered accordingly. Patient was deemed stable for discharge. Pneumatic Tester Mechanic(s): Cardiology, Nephrology, Gastroenterology Procedure(s): [place] [address] [place] [id number] IMAGING REPORT Signed PATIENT: JAMES MENESESYO MR#: [id number] : 1975 SEX: F AGE: 49 LOCATION: 2AH ORDER 0716 STATUS: ADM IN REPORT#: [id number] SERVICE 07 REASON: chf ORDERING PHYSICIAN: NIGHAT HOUSE MD PROCEDURE: CXR2VW - CHEST 2VWS Exam Type: CHEST 2VWS Clinical Information: chf Comparison: None Findings: The lungs are clear of infiltrates. The heart is normal in size. The bony and soft tissue structures of the chest are unremarkable. Impression: Clear lungs. DICTATED BY: KALEE LEVI MD DATE: 01/19/25908 ELECTRONICALLY SIGNED BY: KALEE LEVI MD DATE: 01/19/[address] [address] IMAGING REPORT Signed PATIENT: YO ESCOBAR MR#: [id number] : 1975 SEX: F AGE: 49 LOCATION: 2AH ORDER 1036 STATUS: ADM IN REPORT#: [id number] SERVICE REASON: ELEVATED TI ORDERING PHYSICIAN: KLAUS TRONCOSO MD PROCEDURE: CARD PRASANNA - NM LEXISCAN CARDIOLITE APPROVED REPORT Height: 4 ft 11in Weight: 164 lbs TEST INDICATIONS ELEVATED TI The imaging protocol used to acquire images was Rest Tc-99m/stress Tc-99m 1 day Consent: The procedure was explained and understood by the patient. Informerd consent was witnessed by ALEISHA BOWLING RN First, low dose rest was performed then high dose stress. RESTING DATA: The resting ekg shows: NSR Rest SPECT myocardial perfusion imaging was performed in supine position minutes following the intravenous injection of 11 mCi of Tc-99 Sestamibi. Time of rest injection: 07:56: Date: 01/19/2025 PHARMACOLOGIC STRESS: Pharmacologic stress test was performed by injecting regadenoson 0.4 mg IV push followed by the intravenous injection of 27 mCi of Tc-99 Sestamibi. Time of stress injection: 09:20: Date: 01/19/2025 Heart Rate at time of stress injection: 90 bpm. Gated Stress SPECT was performed 60 minutes after stress injection. The images were gated to evaluate regional wall motion and calculate left ventricular ejection fraction. STRESS DETAILS Reason for Termination: Infusion complete Stress Symptoms: Chest pressure Max HR Achieved: 94 bpm % of APMHR Achieved: 65 Max Blood Pressure: 154/80 mmHg Stress ECG: NSR Study quality was fair. Lung uptake was Normal. Artifact: soft tissue attenuation artifact LEFT VENTRICLE The left ventricular ejection fraction was calculated to be 49%.TID = 1.09. LV PERFUSION Stress Perfusion Normal IMPRESSION Equivocally normal pharmacologic nuclear stress test. Conclusion Equivocally normal Kg41l-Zxjplqodi stress test with an LVEF of 49% and a TID of 1.09 There is an anteroseptal defect on resting images which improves on stress suggestive of artifact. No reversibel ischemia observed. DICTATED BY: IAN FLORES MD DATE: 01/19/2535 ELECTRONICALLY SIGNED BY: IAN FLORES MD DATE: 01/21/25 [address] [place] [address] IMAGING REPORT Signed PATIENT: YO ESCOBAR MR#: [id number] : 1975 SEX: F AGE: 49 LOCATION: 2AH ORDER 1248 STATUS: ADM IN REPORT#: [id number] SERVICE 1246 REASON: dvt ORDERING PHYSICIAN: WILMER SRIVASTAVA MD PROCEDURE: CATH PROC - PERSONNEL GENERALIST MANAGER PROCEDURE REQUEST CLINICAL INDICATION: DVT. INDICATION: GI bleed, DVT.. TUNNELLER: Dr. Turner TECHNIQUE: Informed consent was obtained after explaining the procedure and potential complications. Patient was placed supine on the angio table and timeout performed. All elements of maximal sterile barrier technique, including hand hygiene and cutaneous antisepsis were used. Right side of the neck was prepped and draped in standard sterile fashion. Local anesthesia was applied and under ultrasound guidance, access was gained into the right internal jugular vein with a 21G needle. Under fluoroscopic guidance, a wire and sheath were advanced down into the inferior vena cava. IVC gram performed. Then, a Option filter was deployed in the infrarenal IVC. Final images revealed filter apex at the level of the pedicle of L2. The sheath was removed and hemostasis was achieved at the entry site with manual compression. Sterile dressing was applied. Contrast: 40 mL Omnipaque IV Fluoro: 0.8 min. Blood loss: < 5 mL Complications: None. IMPRESSION: Successful infrarenal placement of retrievable inferior vena cava filter. Filter retrieval should be attempted in 2-3 months, if filter is no longer needed. The head of the bed should be elevated at 45 degrees for 3 hours. DICTATED BY: IRVING TURNER DO DATE: 01/17/251330 ELECTRONICALLY SIGNED BY: IRVING TURNER DO DATE: 01/17/251338 [place] [id number] IMAGING REPORT Signed PATIENT: YO ESCOBAR MR#: [id number] : 1975 SEX: F AGE: 49 LOCATION: 2AH ORDER 1234 STATUS: ADM IN REPORT#: [id number] SERVICE 1232 REASON: Bedside limited echo to assess for cardiac tamponade ORDERING PHYSICIAN: NOAH ELLSWORTH MD PROCEDURE: ECHO FU LD - ECHO 2-D F/U-LTD APPROVED REPORT EXAM: Two-dimensional and M-mode echocardiogram with Doppler and color Doppler. Study Details: HTN , HLD , Diabts M , CKD INDICATION ICD: bedside limited echo to asses 2D Dimensions LVOT diam 1.9 (1.8-2.4cm) Mitral Valve MV E Vmax 120.9 cm/s DECEL Time 206 ms MV A Vmax 116.9 cm/s E/A ratio 1.0 TDI E/E' Medial 23.1 E/E' Lateral 17.1 Medial E' Peak V 5.24 cm/s Lateral E' Peak V 7.09 cm/s Left Ventricle Left ventricular cavity size is normal. LVEF is 45-50%. Stage II, diastolic dysfunction. Right Ventricle The right ventricle is normal size. The right ventricular systolic function is normal. Aortic Valve There is no aortic valvular stenosis. Mitral Valve There is no mitral valve stenosis. Pericardium Moderate pericardial effusion. Ascites is present. Conclusion This is a limited follow up echo. Left ventricular cavity size is normal. LVEF is 45-50%. Stage II, diastolic dysfunction. The right ventricle is normal size. The right ventricular systolic function is normal. Moderate pericardial effusion. DICTATED BY: INNA FLORES MD DATE: 01/17/25 1421 ELECTRONICALLY SIGNED BY: INNA FLORES MD DATE: 01/17/25 [address] [place] [address] [id number] IMAGING REPORT Signed PATIENT: YO ESCOBAR MR#: [id number] : 1975 SEX: F AGE: 49 LOCATION: 2AH ORDER 1335 STATUS: ADM IN REPORT#: [id number] SERVICE 1327 REASON: SHORTNESS OF BREATH ORDERING PHYSICIAN: WILMER SRIVASTAVA MD PROCEDURE: PULM VQ - NM PULMONARY/LUNG VQ SCAN Exam Type: NM PULMONARY/LUNG VQ SCAN Clinical Information: SHORTNESS OF BREATH Comparison: None Findings: Anterior and posterior pulmonary ventilation scan was performed during and following inhalation of 6.8 mCi of xenon-133 gas and pulmonary perfusion images were performed following intravenous injection of Tc-labeled MAA. Ventilation: homogeneous distribution of the xenon gas in both lungs during the single breath and equilibrium phases. Symmetrical clearance of the xenon gas demonstrated in the wash out phase. No evidence of air trapping. Perfusion: homogeneous distribution of the radiolabeled particles in both lungs with normal hilar and cardiac attenuation defect. No wedge shaped or focal perfusion defects are seen. Impression: No evidence of pulmonary embolism. DICTATED BY: KALEE LEVI MD DATE: 01/16/25 1533 ELECTRONICALLY SIGNED BY: KALEE LEVI MD DATE: 01/16/25 [address] [place] [address] [phone] IMAGING REPORT Signed PATIENT: YO ESCOBAR MR#: [id number] : 1975 SEX: F AGE: 49 LOCATION: 2AH ORDER 1335 STATUS: [facility] RE[facility]#: [id number] SERVICE 1327 REASON: SHORTNES OF BREATH ORDERING PHYSICIAN: WILMER SRIVASTAVA MD PROCEDURE: CXR1VW - CHEST 1VW Exam Type: CHEST 1VW Clinical Information: SHORTNES OF BREATH Comparison: None Findings: The lungs are clear of infiltrates. The heart is enlarged. Bony and soft tissue structures of the chest wall are unremarkable. IMPRESSION: Cardiomegaly. Clear lungs. DICTATED BY: KALEE LEVI MD DATE: 01/16/25 1438 ELECTRONICALLY SIGNED BY: KALEE LEVI MD DATE: 01/16/[address] [address] IMAGING REPORT Signed PATIENT: YO ESCOBAR MR#: [id number] : 1975 SEX: F AGE: 49 LOCATION: 2AH ORDER 1335 STATUS: ADM IN REPORT#: [id number] SERVICE 1331 REASON: kidney failure ORDERING PHYSICIAN: DIVYA MORATAYA MD PROCEDURE: RENAL - US RENAL SONOGRAM Exam Type: US RENAL SONOGRAM Clinical Information: kidney failure Comparison: None Findings: The kidneys are hyperechoic consistent with renal parenchymal disease. There are no calculi. No hydronephrosis or calculi are seen. No renal masses are seen. There is no evidence of perinephric fluid on either side. No evidence of significant ureteral dilatation is seen. The right kidney measures 10.9 x 5 cm. The left kidney measures 10.3 x 4.9 cm. The urinary bladder is normal. No bladder masses, stones, or wall thickening is seen. IMPRESSION: Hyperechoic kidneys consistent with renal parenchymal disease. DICTATED BY: KALEE LEVI MD DATE: 05/1 ELECTRONICALLY SIGNED BY: KALEE LEVI MD DATE: 01/15/25 [address] [place] [address] [phone] IMAGING REPORT Signed PATIENT: YO ESCOBAR MR#: [id number] : 1975 SEX: F AGE: 49 LOCATION: 2AH ORDER 1211 STATUS: ADM IN REPORT#: [id number] SERVICE 1202 REASON: r/o DVT ORDERING PHYSICIAN: WILMER SRIVASTAVA MD PROCEDURE: VENOUS ERROL - US VENOUS DOPPLER BILATERAL Exam Type: US VENOUS DOPPLER BILATERAL Clinical Information: r/o DVT Comparison: None Findings: The examination shows nonocclusive thrombosis of the superficial femoral vein and partially of the popliteal vein as well The rest of the venous structures evaluated shows no evidence of thrombosis. IMPRESSION: Thrombus as noted. DICTATED BY: KALEE LEVI MD DATE: 01/15/251605 ELECTRONICALLY SIGNED BY: KALEE LEVI MD DATE: 01/15/25 [address] [place] [address] [phone] IMAGING REPORT Signed PATIENT: YO ESCOBAR MR#: [id number] : 1975 SEX: F AGE: 49 LOCATION: 2AH ORDER STATUS: ADM IN REPORT#: [id number] SERVICE 4 REASON: elevated bnp ORDERING PHYSICIAN: DAVY SWAN PROCEDURE: ECHO CMP - ECHO 2-D COMPLETE APPROVED REPORT EXAM: Two-dimensional and M-mode echocardiogram with Doppler and color Doppler. INDICATION ICD: elevated bnp 2D Dimensions RVDd 3.2 cm LVEF(%) 45.6 (>50%) LVED Vol(simp.) 84.0 mL IVSd 0.9 (0.7-1.1cm) FS(%) 22 % LVES Vol(simp.) 43.0 mL LVDd 4.3 (3.8-5.6cm) LA (2D) 4.5 (1.6-4.0cm) LVEF(%, simp.) 48 % PWd 1.2 (0.7-1.1cm) Ao Root(2D) 2.6 (2.0-3.7cm) LA ESV INDEX (BP) 44.46 mL/m2 LVDs 3.4 (2.5-4.0cm) LVOT diam 1.9 (1.8-2.4cm) IVC diam 2.0 cm Deformation Strain Apical 4 -13.9 % Apical 2 -14.6 % Apical 3 -11.5 % Global Strain -13.3 % M-Mode Dimensions EPSS 1.1 cm LA (MM) 4.5 (1.6-4.0cm) Ao Root(MM) 2.7 (2.0-3.7cm) Aortic Valve AoV Vmax 1.1 m/s Ao Peak GR 5.0 mmHg LVOT Vmax 0.9 m/s AoV VTI 0.2 m Ao Mean GR 3.0 mmHg LVOT VTI 0.20 m JES (VMAX) 2.48 cm2 JES (VTI) 2.5 cm2 Mitral Valve MV E Vmax 124.8 cm/s DECEL Time 120 ms MV A Vmax 143.2 cm/s P 1/2 T 27 ms E/A ratio 0.9 MVA (PHT) 8.0 cm2 TDI E/E' Medial 62.4 E/E' Lateral 60.9 Medial E' Peak V 2.00 cm/s Lateral E' Peak V 2.05 cm/s Pulmonary Valve PV Vmax 1.1 m/s PV VTI 0.20 m PV Mean GR 2.3 mmHg PV Peak GR 4.5 mmHg Tricuspid Valve TR Vmax 3.1 m/s RAP (EST) 3 mmHg RVSP 42.0 mmHg TR Peak GR 39.0 mmHg Left Ventricle The left ventricle is normal size. Mild global hypokinesia. Mild concentric left ventricular hypertrophy. LVEF is 48%. Stage I diastolic dysfunction with markedly elevated mean LV filling pressure. Right Ventricle The right ventricle is normal size; no RV strain noted. The right ventricular systolic function is normal. Atria The left atrium size is mildly-moderately dilated with FAN 42ml/m. The right atrium size is normal. Aortic Valve The aortic valve is normal in structure. No aortic regurgitation is present. There is no aortic valvular stenosis. Mitral Valve The mitral valve is normal in structure. Mitral regurgitation is mild. There is no mitral valve stenosis. Tricuspid Valve The tricuspid valve is normal in structure. There is mild tricuspid valve regurgitation noted. Pulmonic Valve The pulmonary valve is normal in structure. There is trace pulmonic valvular regurgitation. Mild pumonary hypertension. Great Vessels The aortic root is normal in size. The IVC is borderline in size and collapses >50% with inspiration. Pericardium There is moderate pericardial effusion with early signs of tamponade: 1. I/E mitral flow velocity ratio 1.22 2. RA invagination 37% of cardiac cycle. Conclusion LVEF is 48%. Stage I diastolic dysfunction with markedly elevated mean LV filling pressure. The right ventricle is normal size; no RV strain noted. The left atrium size is mildly-moderately dilated with FAN 42ml/m. Mild pumonary hypertension. There is moderate pericardial effusion with early signs of tamponade: 1. I/E mitral flow velocity ratio 1.22 2. RA invagination 37% of cardiac cycle. DICTATED BY: NIGHAT HOUSE MD DATE: 01/15/25 075 ELECTRONICALLY SIGNED BY: NIGHAT HOUSE MD DATE: 01/15/[address] [address] IMAGING REPORT Signed PATIENT: YO ESCOBAR MR#: [id number] : 1975 SEX: F AGE: 49 LOCATION: EDHIP ORDER STATUS: ADM IN REPORT#: [id number] SERVICE REASON: cough ORDERING PHYSICIAN: BART ECHAVARRIA PROCEDURE: CXR1VW - CHEST 1VW Exam Type: CHEST 1VW Clinical Information: cough Comparison: None Findings: Small bilateral pleural effusions. The lungs are clear of infiltrates. The heart is enlarged. Bony and soft tissue structures of the chest wall are unremarkable. IMPRESSION: Cardiomegaly. Small bilateral pleural effusions. 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 Patient to follow up with Child Life Specialist within 1 week upon discharge. Patient to follow up with PCP within 1 week upon discharge to discuss medication changes. Please follow up with Interventional radiology within 2-3 months for possible IVC filter retrieval. Imaging: Report attached to summary Procedures: Retrievable IVC filter placement Microbiology: Report attached to summary Activity: Ad kirstin Home medications: Continued New medications: Eliquis, Hydralazine, Carvedilol Teaching: We reinforced the importance of compliance with follow up appointments and medication compliance. Emergency instructions: The patient was instructed to present to the nearest emergency department or call 911 should their symptoms return or worsen. Home Medications: Reported Medications Lisinopril (Lisinopril) 20 Mg Tablet, 20 MG PO DAILY, TAB 01/15/25 Ferrous Sulfate (Ferrous Sulfate) 325 Mg (65 Mg Iron) Ectab, 325 MG PO DAILY, TAB.EC 01/15/25 Metformin HCl (Metformin HCl) 1,000 Mg Tablet, 1000 MG PO DAILY, TAB 01/15/25 Pioglitazone HCl (Pioglitazone HCl) 30 Mg Tablet, 30 MG PO DAILY, TAB 01/15/25 Rivaroxaban (Xarelto) 20 Mg Tablet, 20 MG PO DAILY, TAB 01/15/25 Aspirin (Aspirin EC) 81 Mg Tablet.dr, 81 MG PO DAILY, TAB 01/15/25 Nifedipine (Nifedipine ER) 30 Mg Tab.er.24, 30 MG PO DAILY 01/15/25 Insulin Glargine,Hum.rec.anlog (Lantus Solostar) 100 Unit/Ml (3 Ml) Insuln.pen, 30 UNIT SQ AM for 30 Days, #15 ML 0 Refills 5/15/25 Insulin Glargine,Hum.rec.anlog (Lantus Solostar) 100 Unit/Ml (3 Ml) Insuln.pen, 20 UNIT SQ HS for 30 Days, ML 0 Refills 01/15/25 Discontinued Reported Medications Insulin Detemir (Levemir) 100 Unit/1 Ml Vial, 25 UNIT SQ PM, VIAL 04/19/23 Insulin Detemir (Levemir) 100 Unit/1 Ml Vial, 35 UNIT SQ DAILY, VIAL 04/19/23 Lisinopril (Lisinopril) 5 Mg Tablet, 5 MG PO DAILY, TAB 04/19/23 New Medications: Apixaban (Eliquis) 5 Mg Tablet 1 TAB PO BID for 30 Days, #60 TAB 0 Refills Carvedilol (Carvedilol) 12.5 Mg Tablet 1 TAB PO BID for 30 Days, #60 TAB 0 Refills Hydralazine HCl (Hydralazine HCl) 25 Mg Tablet 1 TAB PO TID for 30 Days, #90 TAB 0 Refills Lidocaine (Lidocaine Pain Relief) 4 % Adh..patch 1 PATCH TP DAILY for 7 Days, #7 PATCH 0 Refills Continued Medications: Ferrous Sulfate (Ferrous Sulfate) 325 Mg (65 Mg Iron) Ectab 325 MG PO DAILY, TAB.EC Insulin Glargine,Hum.rec.anlog (Lantus Solostar) 100 Unit/Ml (3 Ml) Insuln.pen 20 UNIT SQ HS for 30 Days, ML 0 Refills Insulin Glargine,Hum.rec.anlog (Lantus Solostar) 100 Unit/Ml (3 Ml) Insuln.pen 30 UNIT SQ AM for 30 Days, #15 ML 0 Refills Lisinopril (Lisinopril) 20 Mg Tablet 20 MG PO DAILY, TAB Pioglitazone HCl (Pioglitazone HCl) 30 Mg Tablet 30 MG PO DAILY, TAB Discontinued Medications: Aspirin (Aspirin EC) 81 Mg Tablet.dr 81 MG PO DAILY, TAB Metformin HCl (Metformin HCl) 1,000 Mg Tablet 1000 MG PO DAILY, TAB Nifedipine (Nifedipine ER) 30 Mg Tab.er.24 30 MG PO DAILY Rivaroxaban (Xarelto) 20 Mg Tablet 20 MG PO DAILY, TAB NOAH ELLSWORTH MD January 21, 2025 15:38
--- NOTE | 2025-01-21 17:41 | PN ---
[facility] CARDIOLOGY PROGRESS NOTE Date Patient Seen: January 21, 2025 Time of Visit: 17:40 Problem List: Problem List: Acute combined systolic and diastolic heart failure with 48% EF, E/e' over 60 Lexiscan Cardiolite 01/20/2025: No ischemia Extensive DVT in femoral and popliteal veins on left status post infrarenal placement of retrievable inferior vena cava filter placement 01/17/2025 Pulmonary embolus excluded by V/Q scan Normocytic anemia, POA GI evaluation for anemia Unilateral edema related to extensive DVT in femoral and popliteal veins on left status post IVC filter placement Acute kidney injury, POA, creatinine 3.2, 04/22/2023 creatinine 1.3 Uncontrolled Diabetes mellitius type2, POA Nonspecific Elevated troponin: 137, 121 Hypertension Hyperlipidemia Patient seen and examined in room, resting comfortably in bed; denies any active cardiac symptoms. Unclear cause for patient's heart failure; V/Q scan negative for pulmonary embolism. Patient with extensive DVT is status post IVC insertion 0 01/17/2025. Chest x-ray to follow-up on heart failure on 01/19/2025 was clear; diuretics have been discontinued. Lexiscan Cardiolite ordered to exclude ischemia pending to be read. Physical Examination: GENERAL: No acute distress. HEAD: Normal with no signs of head trauma. EYES: PERRLA, EOMI, conjunctiva and sclera normal. NECK: Supple without JVD. There is no tenderness, lymphadenopathy, or masses. No thyromegaly. Normal carotid upstrokes without bruits. LUNGS: Clear breath sounds bilaterally. No wheezes, or rhonchi. HEART: Normal rate and rhythm. Normal S1 and S2 without murmurs, gallop or rub. VASC: Peripheral pulses +2 bilaterally. EXT: No clubbing or cyanosis. LLE with 2+ edema. NEURO: Awake, alert, and oriented x3. No focal neurological deficits noted..] Laboratory: [ ] Hematology Labs: Test 01/21/25 04:33 Range/Units White Blood Count 9.5 4.8-10.8 K/uL Red Blood Count 2.98 L 4.00-5.50 MIL/uL Hemoglobin 8.0 L 12.0-16.0 g/dL Hematocrit 25.7 L 36-48 % Mean Corpuscular Volume 86.2 79-99 fL Mean Corpuscular Hemoglobin 26.8 L 27.0-33.0 pg Mean Corpuscular Hemoglobin Concent 31.1 L 32.0-36.0 g/dL Red Cell Distribution Width 14.8 11.0-15.5 % Platelet Count 258 130-400 K/uL Mean Platelet Volume 10.8 H 7.5-10.5 fL Immature Granulocyte % (Auto) 2.3 H 0-1 % Neutrophils (%) (Auto) 77.2 H 40.0-77.0 % Lymphocytes (%) (Auto) 9.5 L 21.0-51.0 % Monocytes (%) (Auto) 7.9 3.0-13.0 % Eosinophils (%) (Auto) 2.7 0.0-8.0 % Basophils (%) (Auto) 0.4 0.0-5.0 % Neutrophils # (Auto) 7.4 1.8-7.7 K/uL Lymphocytes # (Auto) 0.9 L 1.0-4.8 K/uL Monocytes # (Auto) 0.8 0.1-1.0 K/uL Eosinophils # (Auto) 0.26 0.00-0.70 K/uL Basophils # (Auto) 0.04 0.00-0.20 K/uL Absolute Immature Granulocyte (auto 0.22 0-1 K/uL Nucleated Red Blood Cells 0.0 0.0-0.19 % White Cell Morphology Comment See comments Chemistry Labs: Test 01/21/25 15:58 01/21/25 04:33 01/21/25 00:36 01/20/25 03:43 Range/Units Whole Blood Glucose 190 H 70-110 MG/DL Sodium Level 136 136-145 mmol/L Potassium Level 4.0 3.5-5.1 mmol/L Chloride Level 103 101-111 mmol/L Carbon Dioxide Level 21 21-32 mmol/L Blood Urea Nitrogen 31 H 7-18 mg/dL Creatinine 4.4 H 0.5-1.0 mg/dL Glomerular Filtration Rate Calc 12 >90 mL/min Random Glucose 205 H 70-105 mg/dL Total Calcium 7.4 L 8.5-10.1 mg/dL Phosphorus Level 5.4 H 2.5-4.9 mg/dL Total Bilirubin 0.1 L 0.2-1.0 mg/dL Aspartate Amino Transf (AST/SGOT) 15 10-37 U/L Alanine Aminotransferase (ALT/SGPT) 8 L 12-78 U/L Alkaline Phosphatase 84 50-136 U/L Total Protein 5.1 L 6.0-8.3 g/dL Albumin 1.1 L 3.5-5.0 g/dL Bedside Glucose Comment Notified Nurse Magnesium Level 1.60 L 1.80-2.40 mg/dL Diagnostics / Radiology: [Copy/Paste Echos/Imaging Report here] Acute combined systolic and diastolic congestive heart failure Unilateral edema related to extensive DVT in femoral and popliteal veins on left status post IVC filter placement Elevated D-Dimer 2297, PE excluded by V/Q scan on 01/16 Normocytic anemia, s/p EGD on 01/16/2025 with LA grade A reflux esophagitis, gastritis, small hiatal hernia Acute kidney injury, creatinine 1.3 on 04/22/2023 Uncontrolled Diabetes mellitus type2, HgA1c of 11.3% Nonspecific Elevated troponin Hypertension Hyperlipidemia Extensive DVT in femoral and popliteal veins on the left via Doppler on 01/15/2025 S/p IVC filter placement on 01/17/2025 Continue Eliquis 5mg bid Acute combined systolic and diastolic congestive heart failure Suspected ICM. NYHA II. 2D Echo on 01/15/2025 with an EF of 48%, stage I diastolic dysfunction and a moderate pericardial effusion with early signs of tamponade Repeat limited 2D echo on 01/17/2025 with an EF of 45-50%, stage II diastolic dysfunction, and moderate pericardial effusion. BNP 3560/ troponins are weakly elevated with a flattened trend Chest x-ray clear on 01/19/2025 -Continue GDMT: Coreg 12.5mg bid -Not a candidate for GEORGE/ARB/MRA/Entresto due to worsening renal function -Strict I's and O's and daily weights, keep on telemetry, monitor/replace electrolytes as needed Nuclear scan does not demonstrate anemia, we do not feel her elevated troponin was from an ischemic event. From a cardiology standpoint patient may be discharged, follow-up in clinic in six weeks with limited echocardiogram to follow-up on pericardial effusion I attest to the findings in this note, and I anticipate following up on the pericardial effusion because there was early evidence of hemodynamic significance. GALILEA HOUSE FIL[employer]ATION PLANT OPERATOR January 21, 2025 17:41 NIGHAT HOUSE MD January 21, 2025 20:04
--- NOTE | 2025-01-22 03:13 | NUR ---
patient with pain to waist/back area. Patient states pain level of 7. Patient states pain is chronic. No prn medication. Reported to Yomaira pearson interactive media marketing strategist. Ordered tramadol 25mg po x1.
[2025-01-22] MEDS: traMADol HCL 50 MG TABLET PO ONE (03:20)
[2025-01-22 03:33] VITALS: BP 144/67; PULSE 89; RESP 20; TEMP 98.4
[2025-01-22 06:12] LABS: C DIFFICILE TOXIN A/B Not Detected (Not Detected); ENTEROAGGREGATIVE ECOLI Not Detected (Not Detected); GIARDIA LAMBLIA Not Detected (Not Detected); PLESIOMONAS SHIGELOIDES Not Detected (Not Detected); SAPOVIRUS Not Detected (Not Detected); SHIGELLA/ENTEROINVASIVE E COLI Not Detected (Not Detected); VIBRIO Not Detected (Not Detected); VIBRIO CHOLERAE Not Detected (Not Detected)
[2025-01-22 07:36] VITALS: BP 149/83; PULSE 92; RESP 16; TEMP 97.8
[2025-01-22 08:00] VITALS: O2SAT 96
[2025-01-22] MEDS ORDERED: LIDO1ADH71 TP (09:15)
[2025-01-22] MEDS ORDERED: CARV12.511 PO (09:15)
[2025-01-22] MEDS ORDERED: HYDR25TA67 PO (09:15)
[2025-01-22] MEDS ORDERED: APIX5TAB PO (09:15)
[2025-01-22 09:51] VITALS: BP 149/83
--- NOTE | 2025-01-22 13:00 | NUR ---
DISCHARGE INSTRUCTIONS WERE GIVEN TO THIS PATIENT AND SHE VOICED UNDERSTANDING INCLUDING ON NEW MEDICATIONS. PIV TO LEFT HAND WAS REMOVED WITH CATHETER INTACT AND DRY DRESSING APPLIED. TELE PACK WAS REMOVED AND RETURNED TO TELEMETRY ROOM. ALL BELONGINGS WERE TAKEN WITH THIS PATIENT. PATIENT WAS TAKEN DOWN TO PRIVATE VEHICLE VIA WHEELCHAIR.
--- NOTE | 2025-01-22 14:26 | PN ---
NEPHROLOGY PROGRESS NOTE Date/Time Patient Seen: January 22, 2025 SUBJECTIVE: This is a 49-year-old female with a past medical history of chronic kidney disease, diabetes mellitus type 2, anemia, hypertension, hyperlipidemia. She presented to emergency room with complaints of shortness of breath. Other systemic review is unchanged. The patient remains weak. The patient has underlying shortness of breath, fluid overload. The patient has anemia. EGD has been done with no acute bleeding. There is a moderate pericardial effusion. S/p IVC filter on She was noted to have elevated BUN/creatinine. We has been consulted for renal failure. Renal ultrasound was noted. She was noted with significant proteinuria. Renal function and electrolytes are stable Continues on weekly Epogen She was seen in the medical floor, in no acute distress No family at the bedside Prognosis remains guarded REVIEW OF SYSTEMS: GENERAL: Negative for any nausea, vomiting, fevers, chills, or weight loss. NEUROLOGIC: Negative for any blurry vision, blind spots, double vision, facial asymmetry, dysphagia, dysarthria, hemiparesis, hemisensory deficits, vertigo, ataxia. HEENT: Negative for any head trauma, neck trauma, neck stiffness, photophobia, phonophobia, sinusitis, rhinitis. CARDIAC: Negative for any chest pain, dyspnea on exertion, paroxysmal nocturnal dyspnea, peripheral edema. PULMONARY: Negative for any shortness of breath, wheezing, COPD, or TB exposure. GASTROINTESTINAL: Negative for any abdominal pain, nausea, vomiting, bright red blood per rectum, melena. GENITOURINARY: Negative for any dysuria, hematuria, incontinence. INTEGUMENTARY: Negative for any rashes, cuts, insect bites. RHEUMATOLOGIC: Negative for any joint pains, photosensitive rashes, history of vasculitis or kidney problems. HEMATOLOGIC: Negative for any abnormal bruising, frequent infections or bleeding. Vital Signs (last 8hr) Date Time Temp Pulse Resp B/P (MAP) Pulse Ox O2 Delivery O2 Flow Rate FiO2 01/22/25 09:51 149/83 01/22/25 08:00 96 Room Air* 0 21 01/22/25 07:36 97.9 92 16 149/83 96 Room Air PHYSICAL EXAM: GENERAL: Alert and oriented x 3. No acute distress. Well-nourished. EYES: EOMI. Anicteric. HENT: Moist mucous membranes. No scleral icterus. No cervical lymphadenopathy. LUNGS: Clear to auscultation bilaterally. No accessory muscle use. CARDIOVASCULAR: Regular rate and rhythm. No murmur. No JVD. ABDOMEN: Soft, non-tender and non-distended. No palpable masses. EXTREMITIES: No edema. Non-tender.?SKIN: No rashes or lesions. Warm. NEUROLOGIC: No focal neurological deficits. CN II-XII grossly intact, but not individually tested. PSYCHIATRIC: Cooperative. Appropriate mood and affect. Current Medications Medications (Trade) Dose Ordered Sig/Efraín Route PRN Reason Start Time Stop Time Status Last Admin Dose Admin Acetaminophen (TYLenol 325MG TAB) 650 mg Q6H PRN PO TEMPERATURE GREATER THAN 101.5 01/15/25 02:30 02/14/25 02:29 Apixaban (EliquIS) 5 mg BID PO 01/18/25 21:00 02/17/25 20:59 01/18/25 20:38 5 MG Aspirin (Aspirin 81mg Ec Tab) 81 mg DAILY PO 01/15/25 09:00 01/16/25 07:43 DC Carvedilol (Coreg 12.5MG) 12.5 mg BID PO 01/16/25 12:30 02/15/25 12:29 01/18/25 20:38 12.5 MG Guaifenesin/ Dextromethorphan (RobiTUSSin DM 200/20MG 10ML) 20 ml Q6H PRN PO COUGH 01/17/25 00:00 02/16/25 00:00 01/18/25 21:01 20 ML Heparin Sodium/ Dextrose 250 ml @ 0 mls/hr PROTOCOL IV 01/16/25 14:00 01/18/25 18:28 DC 01/16/25 18:17 12.29 MLS/HR Hydralazine HCl (APRESOLine 20MG INJ) 10 mg Q6H PRN IV For:SBP above 160;DBP above 90 01/15/25 02:30 02/14/25 02:29 01/16/25 09:49 10 MG Hydralazine HCl ([id number] TAB) 25 mg TID PO 01/16/25 12:30 02/15/25 12:29 01/18/25 20:38 25 MG Insulin Human Regular (humuLIN R 100 UNIT/ML 3ML) INSULIN SLIDING SCAL... ACHS SQ 01/15/25 07:30 02/14/25 07:29 01/18/25 12:28 6 UNIT Morphine Sulfate (morPHINE 2MG SYG) 2 mg Q4H PRN IVP SEVERE PAIN (7-10) 01/15/25 03:00 01/22/25 02:59 01/15/25 22:58 2 MG Nitroglycerin (Nitroglycerin 1gm Oint) 0.5 inch Q8H TD 01/15/25 02:30 02/14/25 02:29 01/19/25 03:17 0.5 INCH Ondansetron HCl (zoFRAN 4MG INJ) 4 mg Q6H PRN IV NAUSEA/VOMITING 01/15/25 02:30 02/14/25 02:29 Pantoprazole Sodium (PROTonix 40MG INJ) 40 mg BID IVP 01/15/25 21:00 02/14/25 20:59 01/18/25 20:37 40 MG Pantoprazole Sodium (PROTonix 40MG TAB) 40 mg DAILY PO 01/15/25 09:00 01/15/25 09:53 DC Sodium Chloride 1,000 ml @ 75 mls/hr [id number] IV 01/15/25 02:30 01/15/25 09:53 DC 01/15/25 02:45 75 MLS/HR Vitamin B Complex/ Vit C/Folic Acid (Nephrovite Tablet) 1 cap DAILY PO 01/16/25 09:00 02/15/25 08:59 01/18/25 08:05 1 CAP LABORATORY: [ ] Hematology Labs: Test 01/21/25 04:33 Range/Units White Blood Count 9.5 4.8-10.8 K/uL Red Blood Count 2.98 L 4.00-5.50 MIL/uL Hemoglobin 8.0 L 12.0-16.0 g/dL Hematocrit 25.7 L 36-48 % Mean Corpuscular Volume 86.2 79-99 fL Mean Corpuscular Hemoglobin 26.8 L 27.0-33.0 pg Mean Corpuscular Hemoglobin Concent 31.1 L 32.0-36.0 g/dL Red Cell Distribution Width 14.8 11.0-15.5 % Platelet Count 258 130-400 K/uL Mean Platelet Volume 10.8 H 7.5-10.5 fL Immature Granulocyte % (Auto) 2.3 H 0-1 % Neutrophils (%) (Auto) 77.2 H 40.0-77.0 % Lymphocytes (%) (Auto) 9.5 L 21.0-51.0 % Monocytes (%) (Auto) 7.9 3.0-13.0 % Eosinophils (%) (Auto) 2.7 0.0-8.0 % Basophils (%) (Auto) 0.4 0.0-5.0 % Neutrophils # (Auto) 7.4 1.8-7.7 K/uL Lymphocytes # (Auto) 0.9 L 1.0-4.8 K/uL Monocytes # (Auto) 0.8 0.1-1.0 K/uL Eosinophils # (Auto) 0.26 0.00-0.70 K/uL Basophils # (Auto) 0.04 0.00-0.20 K/uL Absolute Immature Granulocyte (auto 0.22 0-1 K/uL Nucleated Red Blood Cells 0.0 0.0-0.19 % White Cell Morphology Comment See comments Chemistry Labs: Test 01/22/25 05:12 01/21/25 19:05 01/21/25 04:33 Range/Units Whole Blood Glucose 158 H 70-110 MG/DL Bedside Glucose Comment Notified Nurse Sodium Level 136 136-145 mmol/L Potassium Level 4.0 3.5-5.1 mmol/L Chloride Level 103 101-111 mmol/L Carbon Dioxide Level 21 21-32 mmol/L Blood Urea Nitrogen 31 H 7-18 mg/dL Creatinine 4.4 H 0.5-1.0 mg/dL Glomerular Filtration Rate Calc 12 >90 mL/min Random Glucose 205 H 70-105 mg/dL Total Calcium 7.4 L 8.5-10.1 mg/dL Phosphorus Level 5.4 H 2.5-4.9 mg/dL Total Bilirubin 0.1 L 0.2-1.0 mg/dL Aspartate Amino Transf (AST/SGOT) 15 10-37 U/L Alanine Aminotransferase (ALT/SGPT) 8 L 12-78 U/L Alkaline Phosphatase 84 50-136 U/L Total Protein 5.1 L 6.0-8.3 g/dL Albumin 1.1 L 3.5-5.0 g/dL DIAGNOSTICS / RADIOLOGY: REASON: chf ORDERING PHYSICIAN: NIGHAT HOUSE MD PROCEDURE: CXR2VW - CHEST 2VWS Exam Type: CHEST 2VWS Clinical Information: chf Comparison: None Findings: The lungs are clear of infiltrates. The heart is normal in size. The bony and soft tissue structures of the chest are unremarkable. Impression: Clear lungs. DICTATED BY: KALEE LEVI MD DATE: 01/19/25 0909 REASON: dvt ORDERING PHYSICIAN: WILMER SRIVASTAVA MD PROCEDURE: CATH PROC - GERMINATION WORKER PROCEDURE REQUEST CLINICAL INDICATION: DVT. INDICATION: GI bleed, DVT.. PLASTER MOLDER: Dr. Turner TECHNIQUE: Informed consent was obtained after explaining the procedure and potential complications. Patient was placed supine on the angio table and timeout performed. All elements of maximal sterile barrier technique, including hand hygiene and cutaneous antisepsis were used. Right side of the neck was prepped and draped in standard sterile fashion. Local anesthesia was applied and under ultrasound guidance, access was gained into the right internal jugular vein with a 21G needle. Under fluoroscopic guidance, a wire and sheath were advanced down into the inferior vena cava. IVC gram performed. Then, a Option filter was deployed in the infrarenal IVC. Final images revealed filter apex at the level of the pedicle of L2. The sheath was removed and hemostasis was achieved at the entry site with manual compression. Sterile dressing was applied. Contrast: 40 mL Omnipaque IV Fluoro: 0.8 min. Blood loss: < 5 mL Complications: None. IMPRESSION: Successful infrarenal placement of retrievable inferior vena cava filter. Filter retrieval should be attempted in 2-3 months, if filter is no longer needed. The head of the bed should be elevated at 45 degrees for 3 hours. DICTATED BY: IRVING TURNER DO DATE: 01/17/25 1331 REASON: Bedside limited echo to assess for cardiac tamponade ORDERING PHYSICIAN: NOAH ELLSWORTH MD PROCEDURE: ECHO FU LD - ECHO 2-D F/U-LTD APPROVED REPORT EXAM: Two-dimensional and M-mode echocardiogram with Doppler and color Doppler. Study Details: HTN , HLD , Diabts M , CKD INDICATION ICD: bedside limited echo to asses 2D Dimensions LVOT diam 1.9 (1.8-2.4cm) Mitral Valve MV E Vmax 120.9 cm/s DECEL Time 206 ms MV A Vmax 116.9 cm/s E/A ratio 1.0 TDI E/E' Medial 23.1 E/E' Lateral 17.1 Medial E' Peak V 5.24 cm/s Lateral E' Peak V 7.09 cm/s Left Ventricle Left ventricular cavity size is normal. LVEF is 45-50%. Stage II, diastolic dysfunction. Right Ventricle The right ventricle is normal size. The right ventricular systolic function is normal. Aortic Valve There is no aortic valvular stenosis. Mitral Valve There is no mitral valve stenosis. Pericardium Moderate pericardial effusion. Ascites is present. Conclusion This is a limited follow up echo. Left ventricular cavity size is normal. LVEF is 45-50%. Stage II, diastolic dysfunction. The right ventricle is normal size. The right ventricular systolic function is normal. Moderate pericardial effusion. DICTATED BY: INNA FLORES MD DATE: 01/17/25 1429 REASON: SHORTNESS OF BREATH ORDERING PHYSICIAN: WILMER RSIVASTAVA MD PROCEDURE: PULM VQ - NM PULMONARY/LUNG VQ SCAN Exam Type: NM PULMONARY/LUNG VQ SCAN Clinical Information: SHORTNESS OF BREATH Comparison: None Findings: Anterior and posterior pulmonary ventilation scan was performed during and following inhalation of 6.8 mCi of xenon-133 gas and pulmonary perfusion images were performed following intravenous injection of Tc-labeled MAA. Ventilation: homogeneous distribution of the xenon gas in both lungs during the single breath and equilibrium phases. Symmetrical clearance of the xenon gas demonstrated in the wash out phase. No evidence of air trapping. Perfusion: homogeneous distribution of the radiolabeled particles in both lungs with normal hilar and cardiac attenuation defect. No wedge shaped or focal perfusion defects are seen. Impression: No evidence of pulmonary embolism. DICTATED BY: KALEE LEVI MD DATE: 01/16/25 1533 REASON: SHORTNES OF BREATH ORDERING PHYSICIAN: WILMER SRIVASTAVA MD PROCEDURE: CXR1VW - CHEST 1VW Exam Type: CHEST 1VW Clinical Information: SHORTNES OF BREATH Comparison: None Findings: The lungs are clear of infiltrates. The heart is enlarged. Bony and soft tissue structures of the chest wall are unremarkable. IMPRESSION: Cardiomegaly. Clear lungs. DICTATED BY: KALEE LEVI MD DATE: 01/16/25 1438 REASON: kidney failure ORDERING PHYSICIAN: DIVYA MORATAYA MD PROCEDURE: RENAL - US RENAL SONOGRAM Exam Type: US RENAL SONOGRAM Clinical Information: kidney failure Comparison: None Findings: The kidneys are hyperechoic consistent with renal parenchymal disease. There are no calculi. No hydronephrosis or calculi are seen. No renal masses are seen. There is no evidence of perinephric fluid on either side. No evidence of significant ureteral dilatation is seen. The right kidney measures 10.9 x 5 cm. The left kidney measures 10.3 x 4.9 cm. The urinary bladder is normal. No bladder masses, stones, or wall thickening is seen. IMPRESSION: Hyperechoic kidneys consistent with renal parenchymal disease. DICTATED BY: KALEE LEVI MD DATE: 01/15/25 0389 REASON: r/o DVT ORDERING PHYSICIAN: WILMER SRIVASTAVA MD PROCEDURE: VENOUS ERROL - US VENOUS DOPPLER BILATERAL Exam Type: US VENOUS DOPPLER BILATERAL Clinical Information: r/o DVT Comparison: None Findings: The examination shows nonocclusive thrombosis of the superficial femoral vein and partially of the popliteal vein as well The rest of the venous structures evaluated shows no evidence of thrombosis. IMPRESSION: Thrombus as noted. DICTATED BY: KALEE LEVI MD DATE: 01/15/25 1606 REASON: elevated bnp ORDERING PHYSICIAN: DAVY SWAN PROCEDURE: ECHO [facility] - ECHO 2-D COMPLETE APPROVED REPORT EXAM: Two-dimensional and M-mode echocardiogram with Doppler and color Doppler. INDICATION ICD: elevated bnp 2D Dimensions RVDd 3.2 cm LVEF(%) 45.6 (>50%) LVED Vol(simp.) 84.0 mL IVSd 0.9 (0.7-1.1cm) FS(%) 22 % LVES Vol(simp.) 43.0 mL LVDd 4.3 (3.8-5.6cm) LA (2D) 4.5 (1.6-4.0cm) LVEF(%, simp.) 48 % PWd 1.2 (0.7-1.1cm) Ao Root(2D) 2.6 (2.0-3.7cm) LA ESV INDEX (BP) 44.46 mL/m2 LVDs 3.4 (2.5-4.0cm) LVOT diam 1.9 (1.8-2.4cm) IVC diam 2.0 cm Deformation Strain Apical 4 -13.9 % Apical 2 -14.6 % Apical 3 -11.5 % Global Strain -13.3 % M-Mode Dimensions EPSS 1.1 cm LA (MM) 4.5 (1.6-4.0cm) Ao Root(MM) 2.7 (2.0-3.7cm) Aortic Valve AoV Vmax 1.1 m/s Ao Peak GR 5.0 mmHg LVOT Vmax 0.9 m/s AoV VTI 0.2 m Ao Mean GR 3.0 mmHg LVOT VTI 0.20 m JES (VMAX) 2.48 cm2 JES (VTI) 2.5 cm2 Mitral Valve MV E Vmax 124.8 cm/s DECEL Time 120 ms MV A Vmax 143.2 cm/s P 1/2 T 27 ms E/A ratio 0.9 MVA (PHT) 8.0 cm2 TDI E/E' Medial 62.4 E/E' Lateral 60.9 Medial E' Peak V 2.00 cm/s Lateral E' Peak V 2.05 cm/s Pulmonary Valve PV Vmax 1.1 m/s PV VTI 0.20 m PV Mean GR 2.3 mmHg PV Peak GR 4.5 mmHg Tricuspid Valve TR Vmax 3.1 m/s RAP (EST) 3 mmHg RVSP 42.0 mmHg TR Peak GR 39.0 mmHg Left Ventricle The left ventricle is normal size. Mild global hypokinesia. Mild concentric left ventricular hypertrophy. LVEF is 48%. Stage I diastolic dysfunction with markedly elevated mean LV filling pressure. Right Ventricle The right ventricle is normal size; no RV strain noted. The right ventricular systolic function is normal. Atria The left atrium size is mildly-moderately dilated with FAN 42ml/m. The right atrium size is normal. Aortic Valve The aortic valve is normal in structure. No aortic regurgitation is present. There is no aortic valvular stenosis. Mitral Valve The mitral valve is normal in structure. Mitral regurgitation is mild. There is no mitral valve stenosis. Tricuspid Valve The tricuspid valve is normal in structure. There is mild tricuspid valve regurgitation noted. Pulmonic Valve The pulmonary valve is normal in structure. There is trace pulmonic valvular regurgitation. Mild pumonary hypertension. Great Vessels The aortic root is normal in size. The IVC is borderline in size and collapses >50% with inspiration. Pericardium There is moderate pericardial effusion with early signs of tamponade: 1. I/E mitral flow velocity ratio 1.22 2. RA invagination 37% of cardiac cycle. Conclusion LVEF is 48%. Stage I diastolic dysfunction with markedly elevated mean LV filling pressure. The right ventricle is normal size; no RV strain noted. The left atrium size is mildly-moderately dilated with FAN 42ml/m. Mild pumonary hypertension. There is moderate pericardial effusion with early signs of tamponade: 1. I/E mitral flow velocity ratio 1.22 2. RA invagination 37% of cardiac cycle. DICTATED BY: NIGHAT HOUSE MD DATE: 01/15/25 0755 REASON: cough ORDERING PHYSICIAN: BART ECHAVARRIA PROCEDURE: CXR1VW - CHEST 1VW Exam Type: CHEST 1VW Clinical Information: cough Comparison: None Findings: Small bilateral pleural effusions. The lungs are clear of infiltrates. The heart is enlarged. Bony and soft tissue structures of the chest wall are unremarkable. IMPRESSION: Cardiomegaly. Small bilateral pleural effusions. DICTATED BY: KALEE LEVI MD DATE: 01/15/25 0902 ASSESSMENT: Acute on chronic renal failure Acute exacerbation of systolic and diastolic heart failure Acute on chronic DVT of lower extremity Anemia Moderate pericardial effusion Acute blood loss anemia Possible type 2 MN Uncontrolled Diabetes mellitus type2 Elevated BNP Elevated troponin Hypertension Hyperlipidemia Diabetic nephropathy PLAN: Labs, diagnostic, radiologic exams reviewed and interpreted by myself and supervising physician. We have reviewed external records in detail From Nephrology standpoint, patient may be discharged Follow up in the renal clinic in 1-2 weeks Continue Epogen 51218 units subQ weekly Renal diabetic diet BiPAP as necessary, for respiratory distress Monitor blood pressure adjust medication doses as needed Avoid hypotensive episodes May use Dilaudid 0.5 mg IV every 6 hours as needed for severe pain Monitor blood sugars Strict intake, output, and daily weight should be monitored Please renally adjust medications Avoid nephrotoxic and nonsteroidal drugs Avoid contrast if possible Will continue to monitor renal function, anemia, electrolytes Treatment plan discussed with patient Questions were answered We have discussed with the other team physicians in detail about the care plan We will continue to monitor the patient closely ATTESTATION BY PHYSICIAN I have seen and examined the patient. I reviewed the documentation, medical decision making, and treatment plan as noted by the mid-level provider above. I agree with the findings and plan of care. DIVYA MORATAYA MD, [employer] SERVICE PROFESSIONAL January 22, 2025 14:26
--- NOTE | 2025-01-22 18:52 | NUR ---
PATIENT CALLED POST DISCHARGE AND STATED THAT [facility] DID[facility]T WANT TO FILL HER PRESCRIPTION UNTIL SHE IS SEEN BY A DOCTOR THERE. AFTER MULTIPLE ATTEMPTS TO REACH THE PHARMACY BY CALLING [phone] MAIN NUMBER TO [id number]; I WAS TRANSFERRED 4 TIMES WITHOUT ANY SOLUTIONS. I NOTIFIED THIS PATIENT TO ATTEMPT TO CALL THE MAIN NUMBER TOMORROW MORNING. [phone]
== END 2025-01-22 13:10 | disposition home or self-care (01) | DRG 291 ==
LOC: EDH 23:47 → EDHIP 23:48 → 2AH 01-15 09:20
PROVIDERS: ADMIT Internal Medicine; ATTEND Internal Medicine
PROC: 30233N1 Transfusion of Nonautologous Red Blood Cells into Peripheral Vein, Percutaneous Approach (ICD-10-PCS; 2025-01-15)
PROC: 0DB98ZX Excision of Duodenum, Via Natural or Artificial Opening Endoscopic, Diagnostic (ICD-10-PCS; 2025-01-16)
PROC: 0DB78ZX Excision of Stomach, Pylorus, Via Natural or Artificial Opening Endoscopic, Diagnostic (ICD-10-PCS; 2025-01-16)
PROC: 0DB68ZX Excision of Stomach, Via Natural or Artificial Opening Endoscopic, Diagnostic (ICD-10-PCS; 2025-01-16)
PROC: 06H03DZ Insertion of Intraluminal Device into Inferior Vena Cava, Percutaneous Approach (ICD-10-PCS; principal; 2025-01-17)
PROC: B54MZZA Ultrasonography of Right Upper Extremity Veins, Guidance (ICD-10-PCS; 2025-01-17)
PROC: B51M1ZZ Fluoroscopy of Right Upper Extremity Veins using Low Osmolar Contrast (ICD-10-PCS; 2025-01-17)
PROC: 4A12XM4 Monitoring of Cardiac Stress, External Approach (ICD-10-PCS; 2025-01-19)
PROC: 3E073KZ Introduction of Other Diagnostic Substance into Coronary Artery, Percutaneous Approach (ICD-10-PCS; 2025-01-19)
DX: I13.0 Hypertensive heart and chronic kidney disease with heart failure and stage 1 through stage 4 chronic kidney disease, or unspecified chronic kidney disease (principal); I50.43 Acute on chronic combined systolic (congestive) and diastolic (congestive) heart failure; N17.9 Acute kidney failure, unspecified; D62 Acute posthemorrhagic anemia; I82.432 Acute embolism and thrombosis of left popliteal vein; I82.412 Acute embolism and thrombosis of left femoral vein; I31.39 Other pericardial effusion (noninflammatory); E11.65 Type 2 diabetes mellitus with hyperglycemia; I34.0 Nonrheumatic mitral (valve) insufficiency; E78.5 Hyperlipidemia, unspecified; K21.00 Gastro-esophageal reflux disease with esophagitis, without bleeding; K44.9 Diaphragmatic hernia without obstruction or gangrene; K29.70 Gastritis, unspecified, without bleeding; D50.9 Iron deficiency anemia, unspecified; N18.9 Chronic kidney disease, unspecified; E11.22 Type 2 diabetes mellitus with diabetic chronic kidney disease; Z79.4 Long term (current) use of insulin; Z79.84 Long term (current) use of oral hypoglycemic drugs; Z79.82 Long term (current) use of aspirin; Z95.828 Presence of other vascular implants and grafts
CPT/HCPCS: 36415; 36430; 37191; 43239; 71045; 71046; 76770; 78451; 78452; 78582; 80048; 80053; 80076; 81001; 82270; 82550; 82570; 82728; 82948; 83036; 83540; 83550; 83615; 83690; 83735; 83880; 83935; 84100; 84156; 84300; 84443; 84484; 84540; 84550; 85014; 85018; 85025; 85027; 85045; 85378; 85610; 85730; 86850; 86900; 86901; 86923; 87086; 87186; 87324; 87426; 87507; 87804; 87880; 88305; 88312; 93005; 93017; 93306; 93308; 93356; 93970; 99156; 99291; A4606; A9500; A9540; A9558; C1769; G0378; J0360; J1644; J1756; J1815; J1940; J2250; J2270; J2470; J2704; J2785; J3010; J3475; J3490; J7030; J7050; P9016; Q9967; A4215; A4222; A4223; A4620; C1880; C1894; Q5106

== ENCOUNTER 2025-02-24 13:31 | Emergency (ER) | payer SELFPAY ==
[~2025-02-24] VITALS: Ht 149.9 cm; Wt 69.4 kg
[~2025-02-24 13:31] MED LIST changes: +APIX5TAB PO; +CARV12.511 PO; +FERS325 PO; +HYDR25TA67 PO; -INSU100V12 SQ; +INSU3INS3 SQ; +LIDO1ADH71 TP; +LISI20TA24 PO; -LISI5TAB21 PO; +PIOG30TA70 PO
--- NOTE | 2025-02-24 13:42 | ERN ---
ED Note History of Present Illness Stated Complaint: LEFT LEG SWELLING Chief Complaint: Lower Extremity Pain/Injury Time Seen by MD: 13:32 Dictation: PATIENT IS A 50-YEAR-OLD FEMALE COMING IN TODAY FROM [facility] WITH A HISTORY OF LEFT THIGH AND CALF SWELLING TENDERNESS WITH PAIN FOR ONE MONTH. NO FEVER NO CHILLS. LEG IS WARM TO TOUCH. DISTAL PULSES ARE PALPABLE. SHE WAS ADMITTED IN JANUARY 2025 AT [facility] [place] AND HAD AN IVC FILTER PLACED FOR CHRONIC DVT LEFT LEG. NO SOB AT THIS TIME NO CHEST PAIN Allergies: Coded Allergies: No Known Allergies (Unverified Allergy, Unknown, 04/18/23) Home Meds Active Scripts Lidocaine (Lidocaine Pain Relief) 4 % Adh..patch, 1 PATCH TP DAILY for 7 Days, #7 PATCH 0 Refills Prov:NOAH ELLSWORTH MD 01/22/25 Hydralazine HCl (Hydralazine HCl) 25 Mg Tablet, 1 TAB PO TID for 30 Days, #90 TAB 0 Refills Prov:NOAH ELLSWORTH MD 01/22/25 Carvedilol (Carvedilol) 12.5 Mg Tablet, 1 TAB PO BID for 30 Days, #60 TAB 0 Refi lls Prov:NOAH ELLSWORTH MD 01/22/25 Apixaban (Eliquis) 5 Mg Tablet, 1 TAB PO BID for 30 Days, #60 TAB 0 Refills Prov:NOAH ELLSWORTH MD 01/22/25 Reported Medications Lisinopril (Lisinopril) 20 Mg Tablet, 20 MG PO DAILY, TAB 01/15/25 Ferrous Sulfate (Ferrous Sulfate) 325 Mg (65 Mg Iron) Ectab, 325 MG PO DAILY, TAB.EC 01/15/25 Pioglitazone HCl (Pioglitazone HCl) 30 Mg Tablet, 30 MG PO DAILY, TAB 01/15/25 Insulin Glargine,Hum.rec.anlog (Lantus Solostar) 100 Unit/Ml (3 Ml) Insuln.pen, 30 UNIT SQ AM for 30 Days, #15 ML 0 Refills 01/15/25 Insulin Glargine,Hum.rec.anlog (Lantus Solostar) 100 Unit/Ml (3 Ml) Insuln.pen, 20 UNIT SQ HS for 30 Days, ML 0 Refills 01/15/25 Past Medical History Past Medical History: Diabetes-Type II, High Cholesterol, Hypertension, Renal Disese Surgical History: History: Not Applicable RN Note Reviewed/Agreed w/PFSH: Yes Review of System Dictation CONSTITUTIONAL: NEGATIVE EXCEPT FOR HPI HEAD/FACE: NEGATIVE EXCEPT FOR HPI EENT: NEGATIVE EXCEPT FOR HPI RESPIRATORY: NEGATIVE EXCEPT FOR HPI GASTROINTESTINAL/ABDOMINAL: NEGATIVE EXCEPT FOR HPI GENITOURINARY: NEGATIVE EXCEPT FOR HPI MUSCULOSKELETAL: NEGATIVE EXCEPT FOR HPI LEFT LEG AND THIGH PAIN SWELLING TENDERNESS INTEGUMENTARY: NEGATIVE EXCEPT FOR HPI NEUROLOGICAL/PSYCH: NEGATIVE EXCEPT FOR HPI HEMATOLOGIC/LYMPHATIC: NEGATIVE EXCEPT FOR HPI ALL SYSTEMS NEGATIVE, EXCEPT NOTED ABOVE. 13 POINT REVIEW OF SYSTEMS ASSESSED AND ALL NEGATIVE EXCEPT FOR ABOVE. Initial Vital Sign VS Vital Signs Date Time Temp Pulse Resp B/P (MAP) Pulse Ox O2 Delivery O2 Flow Rate FiO2 02/24/25 13:32 87 18 187/90 99 Room Air 02/24/25 13:53 0 21 02/24/25 14:20 98.2 Physical Exam Dictation VITAL SIGNS REVIEWED GENERAL APPEARANCE: ALERT, ORIENTED X 3, NO ACUTE DISTRESS, WELL DEVELOPED, NOURISHED. HEAD AND FACE: NON-TRAUMATIC. EYES: PERRL, PINK CONJUNCTIVAS, EYELID NO TRAUMA, ANTERIOR CHAMBER WITH ARCUS SENILIS. EARS: PINNAS INTACT AND NO SIGNS OF TRAUMA OR ERYTHEMA EAR CANALS CLEAR AND NO DISCHARGE TM NO ERYTHEMA NOSE: NO DISCHARGE, NO BLEEDING. OROPHARYNX: MOUTH NORMAL, TONGUE PINK, PHARYNX CLEAR,NO ERYTHEMA, TONSILS NO EXUDATES, NO ABSCESSES NOTED, MUCOUS MEMBRANE MOIST NECK: SUPPLE, NON-TENDER, NO THYROMEGALY, NO MASSES, NO JVD, NO BRUITS BREAST:DEFERRED CHEST:NO TENDERNESS, NO CREPITUS, NO PARADOXICAL MOVEMENT, NO RETRACTIONS LUNGS:CLEAR, WELL-VENTILATED, SYMMETRIC, NO RALES, NO WHEEZING, NO RHONCHI, NO STRIDOR, GOOD BREATH SOUNDS BILATERALLY HEART: REGULAR RATE, REGULAR RHYTHM, NO MURMUR, NO GALLOPS VASCULAR: NO PERIPHERAL EDEMA, ABDOMEN: SOFT, POSITIVE BOWEL SOUNDS, NONDISTENDED, NO GUARDING, NONTENDER, NO REBOUND, NO MASSES NO HEPATOMEGALY, NO SPLENOMEGALY, NO VANN'S SIGN, NO HERNIAS. RECTAL: DEFERRED GENITAL: DEFERRED NEUROLOGICAL: NORMAL SPEECH, MOTOR FUNCTION INTACT, SENSORY FUNCTION INTACT MUSCULOSKELETAL: NECK NONTENDER, FULL RANGE OF MOTION, BACK NONTENDER, FULL RANGE OF MOTION, EXTREMITIES: LEFT THIGH AND CALF SWELLING TENDERNESS. DISTAL PULSES PALPABLE LEG WARM TO TOUCH SKIN: COLOR PINK, DRY, NO TURGOR, NO RASH, NO LACERATIONS, NO ABRASIONS, NO CONTUSIONS. LYMPHATIC: DEFERRED Results (Laboratory/Radiology) Laboratory/Radiology Laboratory Tests Test 02/24/25 13:47 White Blood Count 6.8 K/uL (4.8-10.8) Red Blood Count 3.06 MIL/uL (4.00-5.50) L Hemoglobin 8.1 g/dL (12.0-16.0) L Hematocrit 25.1 % (36-48) L Mean Corpuscular Volume 82.0 fL (79-99) Mean Corpuscular Hemoglobin 26.5 pg (27.0-33.0) L Mean Corpuscular Hemoglobin Concent 32.3 g/dL (32.0-36.0) Red Cell Distribution Width 15.6 % (11.0-15.5) H Platelet Count 336 K/uL (130-400) Mean Platelet Volume 10.4 fL (7.5-10.5) Immature Granulocyte % (Auto) 0.4 % (0-1) Neutrophils (%) (Auto) 74.5 % (40.0-77.0) Lymphocytes (%) (Auto) 14.1 % (21.0-51.0) L Monocytes (%) (Auto) 8.1 % (3.0-13.0) Eosinophils (%) (Auto) 2.5 % (0.0-8.0) Basophils (%) (Auto) 0.4 % (0.0-5.0) Neutrophils # (Auto) 5.1 K/uL (1.8-7.7) Lymphocytes # (Auto) 1.0 K/uL (1.0-4.8) Monocytes # (Auto) 0.6 K/uL (0.1-1.0) Eosinophils # (Auto) 0.17 K/uL (0.00-0.70) Basophils # (Auto) 0.03 K/uL (0.00-0.20) Absolute Immature Granulocyte (auto 0.03 K/uL (0-1) Nucleated Red Blood Cells 0.0 % (0.0-0.19) Sodium Level 138 mmol/L (136-145) Potassium Level 3.6 mmol/L (3.5-5.1) Chloride Level 104 mmol/L (101-111) Carbon Dioxide Level 24 mmol/L (21-32) Blood Urea Nitrogen 43 mg/dL (7-18) H Creatinine 3.7 mg/dL (0.5-1.0) H Glomerular Filtration Rate Calc 14 mL/min (>90) Random Glucose 139 mg/dL (70-105) H Total Calcium 8.1 mg/dL (8.5-10.1) L Troponin I High Sensitivity 41 ng/L (4-50) 1440/LEFT LEG DOPPLER STUDY NEGATIVE FOR DVT. Labs Reviewed?: Yes EKG: (+) NSR EKG Comment: EKG NORMAL SINUS RHYTHM/HEART RATE 88/AXIS NORMAL/NO ECTOPY ED Course ED Course Orders Procedure Category Date Status Time Us Venous Doppler US 02/24/25 Resulted Unilateral 13:36 Cbc With Differential LAB 02/24/25 Complete 13:36 Troponin I High LAB 02/24/25 Complete Sensitivity 13:36 12 Lead Ekg Tracing- EKG 02/24/25 Complete Technical 13:36 Basic Metabolic Panel LAB 02/24/25 Complete 13:36 Morphine 2mg Syg PHA 02/24/25 Complete (Morphine 2mg Syg) 14:00 Ondansetron 4mg Inj PHA 02/24/25 Complete (Zofran 4mg Inj) 14:00 Current Medications Medications (Trade) Dose Ordered Sig/Efraín Route PRN Reason Start Time Stop Time Status Last Admin Dose Admin Morphine Sulfate (morPHINE 2MG SYG) 2 mg ONCE ONCE IVP 02/24/25 14:00 02/24/25 14:01 DC 02/24/25 14:24 Ondansetron HCl (zoFRAN 4MG INJ) 4 mg ONCE ONCE IVP 02/24/25 14:00 02/24/25 14:01 DC 02/24/25 14:19 Vital Signs Date Time Temp Pulse Resp B/P (MAP) Pulse Ox O2 Delivery O2 Flow Rate FiO2 02/24/25 15:00 98.2 84 18 160/81 99 Room Air* 0 21 02/24/25 14:20 98.2 84 18 184/92 99 Room Air* 0 21 02/24/25 13:53 84 18 141/90 98 Room Air* 0 21 02/24/25 13:32 87 18 187/90 99 Room Air 1445/PATIENT WAS DISCHARGED HOME WITH LEFT LEG SWELLING, NO DVT ON STUDY. TOLD TO CONTINUE HER MEDICATIONS AT HOME WITH FOLLOW UP WITH HER PRIMARY CARE DOCTOR, KEEP HER LEG ELEVATED MUCH POSSIBLE. HEART Score Response (Comments) Value History: Low suspicion (0) 0 Age: 45-65yrs (+1) 1 Risk Factors: 1-2 risk factors (+1) 1 Initial Troponin: Normal limit (0) 0 Total 2 Medical Decision Making MDM MDM: DIFFERENTIAL DIAGNOSIS: DVT/EDEMA/LEG SWELLING/ELECTROLYTE IMBALANCE/DEHYDRATION/INFECTIOUS RATIONALE: TESTS CONSIDERED AND ORDERED SECONDARY TO SHARED DECISION MAKING INCLUDE: RADIOLOGY/LABS PREVIOUS OUTSIDE RECORDS REVIEWED: OLD ER VISITS. RISK OF COMPLICATION AND/OR MORBIDITY OR MORTALITY OF PATIENT MANAGEMENT: NONE MEDICATIONS-PER MEDICATION RECONCILIATION NEED FOR HOSPITALIZATION: PATIENT DOES NOT MEET CRITERIA FOR HOSPITALIZATION. NONE NEED FOR EMERGENCY MAJOR/MINOR SURGERY: NO THERE ARE NO SOCIAL CONCERNS WITH THIS PATIENT. PRESCRIPTION DRUG MANAGEMENT NONE PRESCRIPTIONS WILL INCLUDE SYMPTOMATIC CARE PATIENT'S PRIOR EXTERNAL MEDICAL RECORDS FROM OTHER ER VISITS WERE REVIEWED BY ME INDICATED. PRIOR TESTING AND RESULTS FROM PREVIOUS VISITS WERE REVIEWED. PRIOR TESTS WERE TAKEN INTO ACCOUNT WITH MEDICAL DECISION MAKING AND RESOURCE UTILIZATION, INDEPENDENT HISTORIAN/HISTORIANS WERE USED TO OBTAIN COMPLETE MEDICAL HISTORY. I INDEPENDENTLY INTERPRETED THE TEST THAT WERE PERFORMED, RESULTS WERE REVIEWED BY ME AND CONSIDERED FINDINGS ON RADIOLOGY IF ORDERED. MEDICAL MANAGEMENT AND EXAMINATION INTERPRETATION DISCUSSIONS WERE HAD BY ME WITH OTHER QUALIFIED HEALTHCARE PROFESSIONALS INDICATED FOR THE PATIENT'S CARE. DX & DISP Disposition: Discharge Departure Impression: Primary Impression: Left leg swelling Additional Impressions: Anemia of chronic renal failure, stage 4 (severe), Stage 4 chronic kidney disease Condition: Stable Scripts Acetaminophen with Codeine (Acetaminophen-Cod #3 Tablet) 300 Mg-30 Mg Tablet 1 TAB PO Q4H PRN for MODERATE TO SEVERE PAIN, #12 TAB 0 Refills Prov: NIRAJ JENNINGS NP 02/24/25 Additional Instructions: FOLLOW-UP WITH PRIMARY CARE PROVIDER IN 1 TO 2 DAYS. TAKE MEDICATIONS DIRECTED HERE IN THE EMERGENCY ROOM. OKAY TO CONTINUE HOME MEDICATIONS UNLESS OTHERWISE DISCUSSED DURING YOUR VISIT IN THE EMERGENCY ROOM TODAY. RETURN TO YOUR NEAREST EMERGENCY ROOM IF SYMPTOMS WORSEN OR IF THERE IS NO IMPROVEMENT. CALL 911 IF YOU NEED IMMEDIATE ASSISTANCE. TAKE TYLENOL OR MOTRIN [id number] NEEDED AND IF NO CONTRAINDICATIONS ARE PRESENT. INCREASE ORAL HYDRATION. A WOUND CULTURE OR URINE CULTURE WAS ORDERED HERE IN THE EMERGENCY ROOM DEPARTMENT PLEASE FOLLOW-UP WITH PRIMARY CARE PROVIDER AND ADVISE THEM TO GET REPEAT PORTS FROM OUR FACILITY. IF YOU HAD ANY GEORGE WRAP/SPLINTS THAT WERE APPLIED HERE, PLEASE DO NOT REMOVE THEM UNTIL YOU SEE YOUR PRIMARY CARE OR SPECIALTY. CONTINUE ALL MEDICATIONS AND TREATMENTS AT HOME. KEEP YOUR LEGS ELEVATED MUCH POSSIBLE. FOLLOW UP WITH YOUR PRIMARY CARE DOCTOR. Referrals: NONE (PCP) Time of Disposition: 14:48 I have reviewed the case, and I agree with, Diagnosis and Plan NIRAJ JENNINGS DROSS PULLER Feb 24, 2025 13:42
--- NOTE | 2025-02-24 13:47 | EKG ---
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
[2025-02-24 13:59] LABS: BASOPHILS # (AUTO) 0.03 K/uL (0.00-0.20); BASOPHILS % (AUTO) 0.4 % (0.0-5.0); EOSINOPHILS # (AUTO) 0.17 K/uL (0.00-0.70); EOSINOPHILS % (AUTO) 2.5 % (0.0-8.0); HEMATOCRIT 25.1 % (36-48); IMMATURE GRANULOCYTE ABSOLUTE 0.03 K/uL (0-1); LYMPHOCYTES % (AUTO) 14.1 % (21.0-51.0); MEAN CORPUSCULAR HEMOGLOBIN 26.5 pg (27.0-33.0); MEAN CORPUSCULAR HGB CONC 32.3 g/dL (32.0-36.0); MONOCYTES # (AUTO) 0.6 K/uL (0.1-1.0); MONOCYTES % (AUTO) 8.1 % (3.0-13.0); NEUTROPHILS # (AUTO) 5.1 K/uL (1.8-7.7); NEUTROPHILS % (AUTO) 74.5 % (40.0-77.0); PLATELET COUNT (AUTO) 336 K/uL (130-400); RED BLOOD CELL COUNT(AUTO) 3.06 MIL/uL (4.00-5.50); RED CELL DISTRIBUTION WIDTH 15.6 % (11.0-15.5); WHITE BLOOD COUNT (AUTO) 6.8 K/uL (4.8-10.8)
[2025-02-24 14:14] LABS: CREATININE 3.7 mg/dL (0.5-1.0); POTASSIUM 3.6 mmol/L (3.5-5.1)
[2025-02-24] MEDS: ondanSETRON 4MG INJ IVP ONE (14:19)
[2025-02-24] MEDS: morPHINE 2 MG SYG IVP ONE (14:24)
--- NOTE | 2025-02-24 14:32 | HMCIMG ---
US VENOUS DOPPLER UNILATERAL HISTORY: Swelling COMPARISON: 01/15/2025 TECHNIQUE: Left lower extremity venous Doppler ultrasound study was performed. FINDINGS: The left common femoral, femoral, popliteal, and posterior tibial veins are visualized. Normal flow with augmentation and compressibilities are demonstrated. Left greater saphenous vein patent. There are left inguinal lymph nodes with the largest measuring 2.2 cm and 2 cm each. Pulsatile venous flow is noted. IMPRESSION: 1. No evidence of deep venous thrombosis is seen. Left renal lymph nodes.
[2025-02-24 15:00] VITALS: BP 160/81; PULSE 84; RESP 18; TEMP 98.2; O2SAT 99
[2025-02-24] MEDS ORDERED: ACET-2079 PO (15:16)
== END 2025-02-24 15:22 | disposition home or self-care (01) ==
LOC: EDH 13:31
DX: M79.89 Other specified soft tissue disorders (principal); M79.605 Pain in left leg; I12.9 Hypertensive chronic kidney disease with stage 1 through stage 4 chronic kidney disease, or unspecified chronic kidney disease; E11.22 Type 2 diabetes mellitus with diabetic chronic kidney disease; N18.4 Chronic kidney disease, stage 4 (severe); D63.1 Anemia in chronic kidney disease; E78.00 Pure hypercholesterolemia, unspecified; Z79.01 Long term (current) use of anticoagulants; Z79.84 Long term (current) use of oral hypoglycemic drugs; Z79.899 Other long term (current) drug therapy
CPT/HCPCS: 99285; 96374; 93971; 96375; 84484; 80048; 85025; 36415; 93005; J2270; J2405